=== PATIENT | male | born 2000 | race Caucasian/White ===

== ENCOUNTER 2024-06-17 17:34 | Inpatient (IN) ==
[2024-06-17] MEDS: LACTATED RINGER'S 1,000 ML IV ONE (18:07)
--- NOTE | 2024-06-17 18:09 | XRay Report ---
Technique: 2 frontal views of the chest were obtained Findings: There are no confluent pulmonary infiltrates. The heart size is within normal limits. No pleural effusion or pneumothorax is seen. There is no definite pulmonary nodule. No fracture is noted. No foreign body is seen Impression: No active disease Electronically signed by Carlos Eduardo Leo 06-17-2024 6:09 PM
[2024-06-17 18:13] LABS: Base Excess VBG 5.4 mEq/L; HCO3 VBG 30 mmol/L; Oxygen Saturation VBG < 60.0 %; PCO2 VBG 42 mmHg (38-50); PO2 VBG 30 mmHg; pH VBG 7.46 (7.36-7.41)
[2024-06-17 18:19] LABS: Basophils # (auto) 0.04 K/uL (0.00-0.20); Basophils % (auto) 0.4 %; Eosinophils % (auto) 1.8 %; Hematocrit (blood only) 42.5 % (42.0-52.0); Hemoglobin 15.2 g/dl (14.0-18.0); Immature Granulocytes # (auto) 0.03 K/uL (0.01-0.20); Immature Granulocytes % (auto) 0.3 %; Lymphocytes # (auto) 1.06 K/uL (1.20-3.40); Lymphocytes % (auto) 9.4 %; Mean Corpuscular Hemoglobin 29.9 pg (25.0-34.0); Mean Corpuscular Hgb Conc 35.8 g/dL (32.0-36.0); Mean Corpuscular Volume 83.7 fL (80.0-100.0); Mean Platelet Volume 9.4 fL (9.4-12.4); Monocytes # (auto) 0.78 K/uL (0.11-0.59); Monocytes % (auto) 6.9 %; Neutrophils # (auto) 9.19 K/uL (1.40-6.50); Neutrophils % (auto) 81.2 %; Platelet Count 301 K/uL (130-400); RDW Coefficient of Variation 13.2 % (11.5-14.5); RDW Standard Deviation 39.8 fL (36.4-46.3); Red Blood Count 5.08 M/uL (4.70-6.10)
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
[2024-06-17 18:27] LABS: Alanine Aminotransferase 25 U/L (7-52); Albumin Globulin Ratio 1.5 (0.9-2); Albumin Level 5.1 gm/dl (3.4-5.0); Alkaline Phosphatase 82 U/L (34-104); Anion Gap 11 (3-11); Aspartate Aminotransferase 34 U/L (13-39); BUN Creatinine Ratio 24.1 (10-20); Bilirubin,Total 1.1 mg/dl (0.2-1.0); Blood Urea Nitrogen 27 mg/dl (6-23); Calcium 10.4 mg/dl (8.6-10.3); Carbon Dioxide 27 mmol/L (21-32); Chloride 102 mmol/L (98-107); Globulin 3.3 gm/dl (2.5-4.0); Glucose 109 mg/dl (70-99(Fasting)); Lipase 3 U/L (11-82); Potassium 3.5 mmol/L (3.5-5.1); Sodium 140 mmol/L (136-145); Total Protein 8.4 gm/dl (6.0-8.3)
[2024-06-17 18:33] LABS: Troponin I High Sensitivity 2.8 pg/ml (0-20)
[2024-06-17 18:43] LABS: Thyroid Stimulating Hormone 2.798 uIu/ml (0.300-4.500)
[2024-06-17 18:45] LABS: Acetaminophen < 3 ug/ml (10-30); Salicylate < 3.0 mg/dl (3.0-30)
[2024-06-17 18:50] LABS: INR 1.1 (0.9-1.1); Prothrombin Time 11.6 Seconds (9.0-12.0)
[2024-06-17] MEDS: LACTATED RINGER'S 1,000 ML IV SCH (18:58)
[2024-06-18 00:31] LABS: Appearance Urine Clear (Clear); Bacteria Urine Automated None Seen (None Seen); Bilirubin Urine Negative (Negative); Blood Urine Negative (Negative); Cast Urine Automated 0-2 /lpf (0-2); Color Urine Dark Yellow; Epithelial Cell Urine Auto 0-2 /hpf (0-2); Glucose Urine UA Negative (Negative); Ketones Urine 1+ (Negative); Leukocyte Esterase Urine Negative (Negative); Nitrite Urine Negative (Negative); Protein Urine 1+ (Negative); RBC Urine Automated 0-2 /hpf (0-2); Specific Gravity Urine 1.022 (1.000-1.030); Urobilinogen Urine Negative (Negative); WBC Urine Automated 0-5 /hpf (0-5); pH Urine 5.5 (4.5-7.5)
[2024-06-18 00:49] LABS: Amphetamines+Metham, Urine Pos (Neg); Barbiturates, Urine Neg (Neg); Benzodiazepine, Urine Neg (Neg); Cocaine, Urine Pos (Neg); Fentanyl, Urine Neg (Neg); MDMA (Ecstacy), Urine Pos (Neg); Marijuana, Urine Neg (Neg); Methadone, Urine Neg (Neg); Opiate, Urine Neg (Neg); Phencyclidine, Urine Neg (Neg)
[2024-06-18] MEDS: POTASSIUM CHLORIDE PWD 20 MEQ PACK PO STA (01:04)
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
[2024-06-18] MEDS ORDERED: KETOROLAC TROMETHAMINE 15 MG/ML VIAL IV PRN (01:08)
[2024-06-18] MEDS ORDERED: PROMETHAZINE 6.25 MG/50.25 ML BAG IV PRN (01:08)
[2024-06-18] MEDS ORDERED: ACETAMINOPHEN 325 MG TAB PO PRN (01:08)
[2024-06-18] MEDS: NSS + 20MEQ KCL 20 MEQ/1,000 ML BAG IV ONE (01:12)
--- NOTE | 2024-06-18 01:26 | CT Scan Report ---
Exam(s): CT C SPINE EXAM: CT Cervical Spine Without Intravenous Contrast CLINICAL HISTORY: Reason for exam: ams/trauma. TECHNIQUE: Axial computed tomography images of the cervical spine without intravenous contrast. CTDI is 26.85 mGy and DLP is 547.31 mGy-cm. Automated exposure control was utilized for the study. A dose lowering technique was utilized adhering to the principles of ALARA. COMPARISON: No relevant prior studies available. FINDINGS: Vertebrae: Unremarkable. No acute fracture. Discs/spinal canal/neural foramina: No acute findings. No spinal canal stenosis. Soft tissues: Unremarkable. IMPRESSION: No evidence of acute cervical spine pathology. Electronically signed by: Yelena Vizcarra MD 06/18/24 01:26 AM
--- NOTE | 2024-06-18 01:33 | CT Scan Report ---
Exam(s): CT HEAD Without Contrast EXAM: CT Head Without Intravenous Contrast CLINICAL HISTORY: Reason for exam: ams/trauma. TECHNIQUE: Axial computed tomography images of the head/brain without intravenous contrast. CTDI is 64.94 mGy and DLP is 1098.96 mGy-cm. Automated exposure control was utilized for the study. A dose lowering technique was utilized adhering to the principles of ALARA. COMPARISON: No relevant prior studies available. FINDINGS: Brain: Unremarkable. No hemorrhage. No significant white matter disease. No edema. Ventricles: Unremarkable. No ventriculomegaly. Bones/joints: Unremarkable. No acute fracture. Soft tissues: Unremarkable. Sinuses: Unremarkable as visualized. No acute sinusitis. Mastoid air cells: Unremarkable as visualized. No mastoid effusion. IMPRESSION: No evidence of acute intracranial pathology. Electronically signed by: Yelena Vizcarra MD 06/18/24 01:32 AM
[2024-06-18] MEDS: POTASSIUM CHLORIDE / WTR 10 MEQ/100 ML PLCT IV SCH (02:25)
[2024-06-18 06:42] LABS: Basophils # (auto) 0.05 K/uL (0.00-0.20); Basophils % (auto) 0.5 %; Eosinophils # (auto) 0.17 K/uL (0.00-0.50); Eosinophils % (auto) 1.7 %; Hemoglobin 12.4 g/dl (14.0-18.0); Immature Granulocytes # (auto) 0.03 K/uL (0.01-0.20); Immature Granulocytes % (auto) 0.3 %; Lymphocytes # (auto) 1.61 K/uL (1.20-3.40); Lymphocytes % (auto) 15.6 %; Mean Corpuscular Hemoglobin 29.8 pg (25.0-34.0); Mean Corpuscular Hgb Conc 35.4 g/dL (32.0-36.0); Mean Corpuscular Volume 84.1 fL (80.0-100.0); Mean Platelet Volume 9.6 fL (9.4-12.4); Monocytes # (auto) 0.69 K/uL (0.11-0.59); Monocytes % (auto) 6.7 %; Neutrophils # (auto) 7.75 K/uL (1.40-6.50); Neutrophils % (auto) 75.2 %; Platelet Count 256 K/uL (130-400); RDW Coefficient of Variation 13.2 % (11.5-14.5); Red Blood Count 4.16 M/uL (4.70-6.10)
[2024-06-18 07:08] LABS: BUN Creatinine Ratio 21.2 (10-20); Calcium 9.1 mg/dl (8.6-10.3); Creatinine Clr Calc Pharmacy 107.6 ml/min; Potassium 4.4 mmol/L (3.5-5.1)
[2024-06-18] MEDS: ENOXAPARIN INJ 40 MG/0.4 ML SYR SQ SCH (08:31)
--- OUTSIDE RECORDS SUMMARY | 2024-06-18 10:33 | External Medical Summary | Summary of Care ---
Author Name Unknown Organization [facility] Address [address] [place] [address] Phone [phone] Care Team Providers Care Lead Inspector Name Role Phone Mulugeta Arnett MD Primary Care Provider Encounter Details Date Type Department Care Team ([facility] Contact Info) Description 06/09/2024 Population Health External Data Unspecified Department Allergies No known active allergiesdocumented as of this encounter (statuses as of 06/09/2024) Medications Medication Sig Dispensed Refills Start Date End Date Status Buprenorphine HCl 8 MG Sublingual Tablet Sublingual (Subutex) Place 2.5 Tablets under the tongue in the morning. 03/13/2024 Active Albuterol Sulfate HFA 108 (90 Base) MCG/ACT Inhalation Aerosol Solution Inhale 2 Puffs by mouth in the morning and 2 Puffs at noon and 2 Puffs in the evening and 2 Puffs before bedtime. 03/13/2024 Active Gabapentin 300 MG Oral Capsule (Neurontin) Take 1 Capsule by mouth in the morning and 1 Capsule at noon and 1 Capsule in the evening and 1 Capsule before bedtime. 03/20/2024 Active Haloperidol 5 MG Oral Tablet (Haldol) Take 1 Tablet by mouth in the morning and 1 Tablet before bedtime. 04/01/2024 Active hydrOXYzine Pamoate 50 MG Oral Capsule (Vistaril) Take 1 Capsule by mouth 3 times a day as needed. 04/01/2024 Active Meloxicam 7.5 MG Oral Tablet (Mobic) Take 1 Tablet by mouth in the morning. 04/01/2024 Active traZODone HCl 100 MG Oral Tablet (Desyrel) Take 1 Tablet by mouth at bedtime. 04/01/2024 Active Cyclobenzaprine HCl 10 MG Oral Tablet (Flexeril)Indication s:Right-sided low back pain without sciatica, unspecified chronicity Take 1 Tablet by mouth at bedtime as needed for Muscle spasms. 10 Tablet 04/03/2024 Active Naloxone HCl 4 MG/0.1ML Nasal Liquid (Narcan Nasal) Administer 1 spray into 1 nostril for suspected opioid overdose. Seek immediate medical attention. https://[email or web address]/[email or web address]?v=[email or web address] 1 Each 3 04/12/2024 Active Nicotine 21 MG/24HR Transdermal Patch 24 Hour (Nicoderm CQ) Place 1 Patch topically on the skin daily. 04/16/2024 Active documented as of this encounter (statuses as of 06/09/2024) Active Problems Problem Noted Date Diagnosed Date Transient alteration of awareness 06/06/2024 Food insecurity 04/21/2024 Overview: Per [facility] Protocol Uncomplicated asthma 04/03/2024 Tobacco use disorder 10/09/2023 History of depression 10/09/2023 Left against medical advice 07/14/2023 Bacteremia due to methicilli n susceptible Staphylococcus aureus (MSSA) 07/14/2023 Pulmonary nodules 07/12/2023 IV drug abuse 07/12/2023 Depression 09/03/2015 documented as of this encounter (statuses as of 06/09/2024) Resolved Problems Problem Noted Date Diagnosed Date Resolved Date Polysubstance abuse 06/06/2024 06/06/20 AMS (altered mental status) 06/05/2024 06/06/2024 Overdose of undetermined intent 06/05/2024 06/06/2024 Elevated troponin 06/05/2024 06/06/2024 History of posttraumatic str ess disorder (PTSD) 10/09/2023 06/06/2024 Opioid use disorder 10/09/2023 06/06/20 Aggressive behavior 10/07/2023 10/15/19 Psychosis 10/07/2023 10/15/2023 Methamphetamine use disorder, severe 07/12/2023 06/06/2024 Crack cocaine use 07/12/2023 06/06/2024 Cellulitis of right leg 07/12/2023 07/ Sepsis without acute organ dysfunction 07/12/2023 03/11/2024 Major depressive disorder, recurrent 01/20/2021 06/06/2024 Tobacco use disorder 09/03/2015 024 documented as of this encounter (statuses as of 06/09/2024) Immunizations Name Administration Dates Next Due DTaP Dipth/Tet/Acell Pertussis (Infanrix), Peds 03/28/2005,10/24/2000,03/22/2000,01/18,1999 HIB PRP-T, 4 Dose, PF, IM (H iberix, ActHib) 10/24/2000,03/22/2000,01/19/2000,10/18 HPV Vaccine, 4-Valent 01/03/2011 Hepatitis A Vaccine 11/14/2016 Hepatitis A, Ped/Adol., 18 y ear and below, 2-Dose 01/03/2011 Hepatitis B, 0-19 yrs 01/19/2000,1999,07/13 IPV - Polio Virus Vaccine (Inact) 2004,03/22/2000,01/19/2000,10/18 MMR - Measles/Mumps/Rubella Vaccine 03/28/2005,0 10/24/2000 Meningococcal Conjugate Vacc ine (Menactra/Menveo) 11/14/2016,09/03/2015,01/03/2011 PPD 06/04/2023 Pneumococcal Conjugate Vacci ne, 7 Valent 01/23/2001,10/24/2000 Seasonal Influenza Vac., MDV , IM, 0.5 mL (Fluzone) 06/10/2009 TDAP, Age 7 and older, IM (Adacel) 01/03/2011 Varicella Vaccine (Chicken Pox) 01/03/2011,01/23 documented as of this encounter Social History Tobacco Use Types Packs/Day Years Used Date Smoking Tobacco: Every Day Cigarettes 0.5 7 Smokeless Tobacco: Never Comments:patient educated on health risks of smoking, education pamphlets given on 7A. Alcohol Use Standard Drinks/Week Comments Yes 0 (1 standard drink = 0.6 oz pur e alcohol) drank last night PHQ-2 Answer Date Recorded PHQ Adult Total Score 5 10/15/2023 Hunger Vital Sign Answer Date Recorded Within the past 12 months, y ou worried that your food would run out before you got the money to buy more. Sometimes true Within the past 12 months, t he food you bought just didn't last and you didn't have money to get more. Sometimes true Childcare Answer Date Recorded Do you feel overwhelmed with taking care of a child, family member or friend? No 04/03/2024 Does your family need help f inding childcare? (Household - for ages 0-17 years) Not on file 04/03/2024 Clothing Answer Date Recorded Have you been unable to get clothing when it was really needed? No 04/03/2024 Is your family able to get c lothes or diapers when needed? (Household - for ages 0-17 years) Not on file 04/03/2024 Personal Safety Answer Date Recorded Do you feel unsafe or have concerns for your saf ety? No 04/03/2024 Do you have concerns for you r family's safety? (Household - for ages 0-17 years) Not on file 04/03/2024 Utilities Answer Date Recorded Do you have trouble paying y our heating, water, or electric bill? Yes 04/03/2024 Is your family able to pay t he heat, water, or electric bill? (Household - for ages 0-17 years) Not on file 04/03/2024 Does your family have access to good internet? (Household - for ages 0-17 years) Not on file 04/03/2024 Employment Status Answer Date Recorded Are you unemployed or without regular income? Ye s 04/03/2024 Does the household have a re gular source of income? (Household - for ages 0-17 years) Not on file 04/03/2024 Social Connections Answer Date Recorded How often do you feel lonely or isolated from th ose around you? Never 04/03/2024 Financial Resource Strain Answer Date R ecorded Do you have any trouble payi ng for your medications, or do you think you might in the future? No 04/03/2024 Does your family have troubl e paying for medicine? (Household - for ages 0-17 years) Not on file 04/03/2024 Transportation Needs Answer Date Record ed READ ONLY Do you have troubl e getting a ride to medical visits or work? Sometimes True 04/03/2024 Does your family have a hard time getting a ride to doctors visits? (Household - for ages 0-17 years) Not on file 04/03/2024 Has lack of transportation k ept you from medical appointments, meetings, work, or from getting things needed for daily living? Check all that apply. No 024 Do you (or your family) have trouble finding or paying for a ride (transportation)? (Household - for ages 0-17 years) Not on file 04/03/2024 Housing Stability Answer Date Recorded Do you currently live in a s helter or have no steady place to sleep at night? No 04/03/2024 READ ONLY Do you think you a re at risk of becoming homeless? No 04/03/2024 Does your family worry about paying for your home or becoming homeless? (Household - for ages 0-17 years) Not on file 0 04/03/2024 Are you homeless or worried that you might be in the future? No 04/03/2024 Are you (or your family) gabrielle eless or worried that you might be in the future? (Household - for ages 0-17 years) Not on file Food Insecurity Answer Date Recorded Do you need food for this week? Yes 04/03/2024 Are you able to get enough f ood for your family? (Household - for ages 0-17 years) Not on file 04/03/2024 Does your family need food t his week? (Household - for ages 0-17 years) Not on file 04/03/2024 Do you always have enough fo od for your family? (Household - for ages 0-17 years) Not on file 04/03/2024 Sex and Gender Information Value Date Recorded Sex Assigned at Male 12/04/2023 4:41 PM EDT Gender Identity Male 12/04/2023 4:41 PM EDT Sexual Orientation Straight 12/04/2023 4: 41 PM EDT Job Start Date Occupation Industry Not on file Not on file Not on file documented as of this encounter Functional Status Functional Status Response Date of Assess ment Are you deaf or do you have serious difficulty h earing? No 06/05/2024 Are you blind or do you have serious difficulty seeing, even when wearing glasses? No 06/05/2024 Do you have serious difficul ty walking or climbing stairs? (5 years old or older) No 06/05/2024 Do you have difficulty dress ing or bathing? (5 years old or older) No 06/05/2024 Because of a physical, menta l, or emotional condition, do you have difficulty doing errands alone such as visiting a doctor s office or shopping? (15 years old or older) No 06/05/20 Cognitive Status Response Date of Assessm ent Because of a physical, menta l, or emotional condition, do you have serious difficulty concentrating, remembering, or making decisions? (5 years old or older) No 06/05/2024 documented as of this encounter Plan of Treatment Upcoming Encounters Date Type Department Care Team (Late st Contact Info) Description 06/18/2024 10:00 AM EST Office Visit Cardiology, [place] [address] [place] [address] Rianna Batista MD [address] [place] [place] [address] 08/05/2024 2:40 PM EST Office Visit Family Practice, [place] [address] [phone] Stacy Hopson CRNP [address] [address] Health Maintenance Due Date Last Done Comments DISCUSS TOBACCO CESSATION (Michelle COTE TO SMARTSET #[id number]) 1999 Pneumococcal Vaccine: Pediat rics (0 to 5 Years) and At-Risk Patients (6 to 64 Years) (1 of 2 - PCV) 2005 HPV (Gardasil) Vaccine (2 - Male 2-dose series) 07/06/2011 01/03/2011 DTap/Tdap Vaccines (7 - Td o r Tdap) 01/03/2021 01/03/2011, 03/28/2005, 10/24/2000, Additional history exists *SPIROMETRY ONCE FOR ASTHMA-ADULT 04/06/2024 COVID-19 Vaccine (1 - 2023-2 5 season) 2024 Influenza Vaccine (FLU shot) (#1) 2024 009 Depression Monitoring 10/14/2024 10/15/2023 Hepatitis B Vaccine Completed 01/19/2000, 1999, 1999 MENINGOCOCCAL (MENACTRA/MENVEO) Completed 11/14/2016, 09/03/2015, 01/03/2011 documented as of this encounter Medical Devices Not on filedocumented as of this encounter Advance Directives * Full Code (Latest Code Status on File) Date Activated Date Inactivated Comments 06/05/2024 3:36 AM 06/06/2024 9:25 PM This order reflects the patients wishes and were consensually agreed upon. Question Answer Comments Discussion of Advance Direct conner occurred with: Not Discussed due to patient's condition Does the patient have a Living Will? No Does the patient have Health Care Power of Deburrer Machine? No * Full Code Date Activated Date Inactivated Comments 10/08/2023 4:41 PM 10/15/2023 1:38 PM This order re flects the patients wishes and were consensually agreed upon. Question Answer Comments Discussion of Advance Direct ocnner occurred with: Not Discussed due to patient's condition * Full Code Date Activated Date Inactivated Comments 10/07/2023 2:37 AM 10/08/2023 4:41 PM This order r eflects the patients wishes and were consensually agreed upon. Question Answer Comments Discussion of Advance Direct conner occurred with: Not Discussed due to patient's condition * Full Code Date Activated Date Inactivated Comments 07/12/2023 12:51 PM 07/14/2023 1:41 PM This order reflects the patients wishes and were consensually agreed upon. Question Answer Comments Discussion of Advance Directives occurred with: Patient * Full Code Date Activated Date Inactivated Comments 01/18/2021 2:46 PM 01/20/2021 5:35 PM This order re flects the patients wishes and were consensually agreed upon. Care Teams Lead Inspector Relationship Specialty Start Date End Date Mulugeta Arnett MD [address] [address] PCP - General Family Medicine 12/4/23 documented as of this encounter
--- OUTSIDE RECORDS SUMMARY | 2024-06-18 10:34 | External Medical Summary ---
Author Name Unknown Address Unknown Organization [id number]:[facility] - [address] [address] Laboratory Report Ordering Provider Test Date Status ONESIMO MÉNDEZ 06/05/2024 01:41:00 Final Observation Date Value Abnormality Reference (Units ) Status Troponin T 06/05/2024 01:41:00 100 Above high normal < =22 (ng/L) Final Performing Location [facility] - [address] [place] [address]
--- OUTSIDE RECORDS SUMMARY | 2024-06-18 10:34 | External Medical Summary | Summary of Care ---
Author Name Unknown Organization [facility] Address [address] [place] [address] Phone [phone] Care Team Providers Care Outside Repairer Special Name Role Phone Mulugeta Arnett MD Primary Care Provider Reason for Visit * Auth/Cert Specialty Diagnoses / Procedures Referred By Juany camargo Referred To Contact Diagnoses Precious Jung MD [address] [place] [address] Emergency Medicine [address] [address] Referral ID Status Reason Start Date Expiration Date Visits Re quested Visits Authorized [id number] Encounter Details Date Type Department Care Team (Latest Contact Info) Description 06/05/2024 8:06 AM EDT - 06/05/2024 11:59 PM EDT Hospital Encounter Cardiac Studies, [address] [phone] Discharge Disposition: Home - Self Care Allergies No known active allergiesdocumented as of this encounter (statuses as of 06/06/2024) Medications Medication Sig Dispensed Refills Start Date End Date Status Diclofenac Sodium 75 MG Oral Tablet Delayed Release (Voltaren)Indica tions:Chronic low back pain with sciatica, sciatica laterality unspecified, unspecified back pain laterality Take 1 Tablet by mouth in the morning and 1 Tablet before bedtime. With food.. 60 Tablet 03/11/2024 Discontinued(M edication List Clean Up) hydrOXYzine HCl 10 MG Oral Tablet (Atarax)Indicati ons:Anxiety Take 1 Tablet by mouth every 8 hours as needed for Anxiety. 30 Tablet 03/11/2024 Discontinued(M edication List Clean Up) Buprenorphine HCl 8 MG Sublingual Tablet Sublingual (Subutex) Place 2.5 Tablets under the tongue in the morning. 03/13/2024 Suspended Albuterol Sulfate HFA 108 (90 Base) MCG/ACT Inhalation Aerosol Solution Inhale 2 Puffs by mouth in the morning and 2 Puffs at noon and 2 Puffs in the evening and 2 Puffs before bedtime. 03/13/2024 Suspended Gabapentin 300 MG Oral Capsule (Neurontin) Take 1 Capsule by mouth in the morning and 1 Capsule at noon and 1 Capsule in the evening and 1 Capsule before bedtime. 03/20/2024 Suspended Haloperidol 5 MG Oral Tablet (Haldol) Take 1 Tablet by mouth in the morning and 1 Tablet before bedtime. 04/01/2024 Suspended hydrOXYzine Pamoate 50 MG Oral Capsule (Vistaril) Take 1 Capsule by mouth 3 times a day as needed. 04/01/2024 Suspended Meloxicam 7.5 MG Oral Tablet (Mobic) Take 1 Tablet by mouth in the morning. 04/01/2024 Suspended traZODone HCl 100 MG Oral Tablet (Desyrel) Take 1 Tablet by mouth at bedtime. 04/01/2024 Suspended Cyclobenzaprine HCl 10 MG Oral Tablet (Flexeril)Indica tions:Right-side d low back pain without sciatica, unspecified chronicity Take 1 Tablet by mouth at bedtime as needed for Muscle spasms. 10 Tablet 04/03/2024 Suspended Additional Information Naloxone HCl 4 MG/0.1ML Nasal Liquid (Narcan Nasal) Administer 1 spray into 1 nostril for suspected opioid overdose. Seek immediate medical attention. https://www.yout ube.com/watch?v= [email or web address] 1 Each 3 04/12/2024 Suspended Additional Information documented as of this encounter (statuses as of 06/06/2024) Active Problems Problem Noted Date Diagnosed Date AMS (altered mental status) 06/05/2024 Overdose of undetermined intent 06/05/2024 Elevated troponin 06/05/2024 Food insecurity 04/21/2024 Overview: Per [facility] Protocol Uncomplicated asthma 04/03/2024 History of posttraumatic stress disorder (PTSD) 10/09/2023 Opioid use disorder 10/09/2023 Tobacco use disorder 10/09/2023 History of depression 10/09/2023 Left against medical advice 07/14/2023 Bacteremia due to methicilli n susceptible Staphylococcus aureus (MSSA) 07/14/2023 Methamphetamine use disorder, severe 07/12/2023 Crack cocaine use 07/12/2023 Pulmonary nodules 07/12/2023 IV drug abuse 07/12/2023 Major depressive disorder, recurrent 01/20/2021 Depression 09/03/2015 documented as of this encounter (statuses as of 06/06/2024) Resolved Problems Problem Noted Date Diagnosed Date Resolved Date Aggressive behavior 10/07/2023 10/15/19 24 Psychosis 10/07/2023 10/15/2023 Cellulitis of right leg 07/12/2023 07/ Sepsis without acute organ dysfunction 07/12/2023 03/11/2024 Tobacco use disorder 09/03/2015 024 documented as of this encounter (statuses as of 06/06/2024) Immunizations Name Administration Dates Next Due DTaP [...] 06/18/2024 10:00 AM EST Office Visit Cardiology, [place] [address] [address] Rianna Batista MD [address] [address] 08/05/2024 2:40 PM EST Office Visit Family Practice, [place] [address] [phone] Stacy Hopson CRNP [address] [place] [address] Health Maintenance Due Date Last Done Comments DISCUSS TOBACCO CESSATION (Michelle COTE TO SMARTSET #[id number]) 1999 Pneumococcal Vaccine: Pediat rics (0 to [...] Not on filedocumented as of this encounter Procedures Procedure Name Priority Date/Time Associated Diagnosis Comments ECHO, COMPLETE (2D), TRANS-THORACIC Routine 06/05/2024 8:56 AM EDT Chest pain, unspecified type documented in this encounter Results * ECHO, COMPLETE (2D), TRANS-THORACIC (06/05/2024 8:56 AM EDT) LEFT VENTRICULAR EJECTION FRACTION 50 % [facility] 06/05/2024 8:12 AM EDT Precious Hoffman MD E[facility]ARDIOLOGY [facility] documented in this encounter Advance Directives * Full Code (Latest Code Status on File) Date Activated Date Inactivated Comments 06/05/2024 3:36 AM This order re flects the patients wishes and were consensually agreed upon. Question Answer Comments Discussion of Advance Direct conner occurred with: Not Discussed due to patient's condition Does the patient have a Living Will? No Does the patient have Health Care Power of Car Stereo Installer? No * Full Code Date Activated Date [...] and were consensually agreed upon. Care Teams Outside Repairer Special Relationship Specialty Start Date End Date Mulugeta Arnett MD [address] [address] PCP - General Family Medicine 07/16/23 documented as of this encounter
--- OUTSIDE RECORDS SUMMARY | 2024-06-18 10:34 | External Medical Summary ---
Author Name Unknown Address Unknown Organization K1F:[facility] - [address] [address] Laboratory Report Ordering Provider Test Date Status JESSICA ASCENCIO 06/05/2024 08:02:00 Final Observation Date Value Abnormality Reference (Units ) Status Lactic Acid 06/05/2024 08:02:00 1.2 0.4-2.0 (mmol/L) Final Performing Location [facility] - [address] [place] [address]
--- OUTSIDE RECORDS SUMMARY | 2024-06-18 10:34 | External Medical Summary ---
Author Name Unknown Address Unknown Organization K01[place] [place] [address] [facility] [address] Laboratory Report Ordering Provider Test Date Status ONESIMO MÉNDEZ 06/05/2024 02:41:48 Final Cutoff Concentration:
D rug \X09\ Level
Benzoylecgonine 100 ng/mL

This test was developed and its performance characteristics determined by [facility]. It has not been cleared or approved by the [place] Food and Drug Administration. Observation Date Value Abnormality Reference (Units ) Status METHODOLOGY 06/05/2024 02:41:48 LC-MS/MS Final Cocaine Metabolite, Urine (Benzolylecgonine) 06/05/2024 02:41:48 >3000 Above high normal Negative (ng/mL) Final Performing Location [facility] [place] [address] [facility] [address]
--- OUTSIDE RECORDS SUMMARY | 2024-06-18 10:34 | External Medical Summary ---
Author Name Unknown Address Unknown Organization K01:[facility] [place] - [facility] [address] [facility] [address] Laboratory Report Ordering Provider Test Date Status ONESIMO MÉNDEZ 06/05/2024 02:41:48 Final Cutoff Concentrations:
D rug Level
Alpha-Hydroxyalprazolam 10 ng/mL
7-Aminoclonazepam 20 ng/mL
Nordiazepam 20 ng/mL
Oxazepam 20 ng/mL
Temazepam 20 ng/mL
Lorazepam 10 ng/mL

This test was developed and its performance characteristics determined by [facility]. It has not been cleared or approved by the [place] Food and Drug Administration. Observation Date Value Abnormality Reference (Units ) Status METHODOLOGY 06/05/2024 02:41:48 LC-MS/MS Final Alpha hydroxyalprazolam cutoff [Mass/volume] in Urine for Confirmatory method 06/05/2024 02:41:48 Negative Negative Final 7-Aminoclonazepam [Mass/volume] in Urine by Confirmatory method 06/05/2024 02:41:48 Negative Negative Final Nordiazepam cutoff [Mass/volume] in Urine for Confirmatory method 06/05/2024 02:41:48 Negative Negative Final Oxazepam cutoff [Mass/volume] in Urine for Confirmatory method 06/05/2024 02:41:48 Negative Negative Final Temazepam cutoff [Mass/volume] in Urine for Confirmatory method 06/05/2024 02:41:48 Negative Negative Final LORazepam cutoff [Mass/volume] in Urine for Confirmatory method 06/05/2024 02:41:48 Negative Negative Final Performing Location [facility] [place] - [facility] [address]
--- OUTSIDE RECORDS SUMMARY | 2024-06-18 10:34 | External Medical Summary | Summary of Care ---
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 the following: - Potential for Dangerous arrhythmia requiring telemetry monitoring beyond observation care (eg, overdose with known arrhythmogenic agent, such as tricyclic antidepressant or drug-induced QTc prolongation) Additional Information: found unresponsive in a backyard and police was called and they found him up and walking but slurring and told them he took several shots of Subutex and also told nurse he took multiple Seroquel -Troponin x 3 -Lactic acid every 3 hours until normalized -Cardio consult -Echocardiogram AdmissionCare documentation entered by: Michelle Navarro [facility], 28th edition, Copyright 2023 [facility] [employer] All Rights Reserved. [id number] Solely for purpose of utilization review and payment; not a diagnostic tool * ED Ambulette Driver Note - Lasha Herring RN - 06/05/2024 1:04 AM EDT Late entry for 0045 - Pt calling out. Threatening to leave facility. Continues to be under the influence of alcohol/prescription drugs. All attempts at redirection by ED staff failing. Security present at the bedside. Provider to be ordering medication to help with restlessness/behaviors. * ED Ambulette Driver Note - Mulugeta Kruse RN - 06/04/2024 11:49 PM EDT Poison control called. Monitor for [employer]IAN depression, agitation, anticholinergic effects, for prolonged QRS give bicarb, for agitation give benzodiazepines. 12 hour obs. documented in this encounter Plan of Treatment Upcoming Encounters Date Type Department Care Team (Late st Contact Info) Description 06/18/2024 10:00 AM EST Office Visit Cardiology, [place] [address] [place] [address] [facility]ista [facility] [address] [facility] [place] [address] 08/05/2024 2:40 PM EST Office Visit Family Practice, [place] [address] [phone] Stacy Hopson CRNP [address] [place] [phone] Pending Results Name Type Priority Associated Diagnoses Date /Time BENZODIAZEPINES, URINE CONFIRMATION Lab STAT 06/05/2024 2:41 AM EDT COCAINE METABOLITE, URINE CONFIRMATION Lab STAT 06/05/2024 2:41 AM EDT Scheduled Orders Name Type Priority Associated Diagnoses Orde r Schedule BENZODIAZEPINES, URINE CONFIRMATION Lab STAT One Time for 1 Occurrences starting 06/05/2024 until 06/05/2024 COCAINE METABOLITE, URINE CONFIRMATION Lab STAT One Time for 1 Occurrences starting 06/05/2024 until 06/05/2024 Health Maintenance Due Date Last Done Comments DISCUSS TOBACCO CESSATION (R EFER TO SMARTSET #[id number]) 1999 Pneumococcal Vaccine: Pediat rics (0 to [...] Procedure Name Priority Date/Time Associated Diagnosis Comments HC ECG TRACING ONLY STAT 06/06/2024 1 2:17 AM EDT Chest pain GLUCOSE METER, POINT OF CARE BLADIMIR 06/06/2024 12:13 AM EDT GLUCOSE METER, POINT OF CARE BLADIMIR 06/05/2024 8:47 PM EDT HC ECG TRACING ONLY STAT 06/05/2024 4 :41 PM EDT Chest pain ECHO, COMPLETE (2D), TRANS-THORACIC Routine 06/05/2024 8:56 AM EDT Chest pain, unspecified type HC ECG TRACING ONLY Routine 06/05/2024 8 :09 AM EDT Heart palpitations LACTATE Routine 06/05/2024 8:02 AM EDT TROPONIN T, HIGH SENSITIVITY Routine 06/05/2024 4:41 AM EDT BASIC METABOLIC PANEL Routine 06/05/2024 4:41 AM EDT LACTATE Routine 06/05/2024 4:41 AM EDT CBC Routine 06/05/2024 4:41 AM EDT MAGNESIUM Routine 06/05/2024 4:41 AM EDT TOXICOLOGY, URINESCREEN W/ CONFIRMATION STAT 06/05/2024 2:41 AM EDT URINALYSIS, REFLEX TO MICROSCOPIC STAT 06/05/2024 2:41 AM EDT HC ECG TRACING ONLY STAT 06/05/2024 1 :59 AM EDT Tachycardia TROPONIN T, HIGH SENSITIVITY STAT 06/05/2024 1:41 AM EDT EXTRA GOLD TOP Routine 06/05/2024 1:00 AM EDT EXTRA TUBES Routine 06/05/2024 1:00 AM EDT DIFFERENTIAL, AUTOMATED STAT 06/05/2024 12:32 AM EDT TROPONIN T, HIGH SENSITIVITY STAT 06/05/2024 12:32 AM EDT COMPREHENSIVE METABOLIC PANEL STAT 06/05/2024 12:32 AM EDT TYPE AND SCREEN STAT 06/05/2024 12:32 AM EDT CK Routine 06/05/2024 12:32 AM EDT CBC STAT 06/05/2024 12:32 AM EDT PT INR STAT 06/05/2024 12:32 AM EDT LACTATE,WHOLE BLOOD STAT 06/05/2024 1 2:32 AM EDT ETHANOL, MEDICAL STAT 06/05/2024 12:3 2 AM EDT CBC STAT 06/05/2024 12:32 AM EDT ACETAMINOPHEN LEVEL STAT 06/05/2024 1 2:32 AM EDT SALICYLATES LEVEL STAT 06/05/2024 12: 32 AM EDT XR CHEST 1 VIEW STAT 06/05/2024 12:23 AM EDT XR PELVIS AP VIEW STAT 06/05/2024 12: [address] ABD/PELVIS W IV CONTRAST - WO ORAL CONTRAST STAT 06/05/2024 12:22 AM EDT Fatty (change of) liver, not elsewhere classified Constipation, unspecified Other general symptoms and signs Umbilical hernia without obstruction or gangrene CT C SPINE WO CONTRAST STAT 06/05/2024 12:[address] CHEST W CONTRAST STAT 06/05/2024 1 2:22 AM EDT Fatty (change of) liver, not elsewhere classified Constipation, unspecified Other general symptoms and signs Umbilical hernia without obstruction or gangrene CT HEAD/BRAIN WO CONTRAST STAT 06/05/2024 12:22 AM EDT GLUCOSE METER, POINT OF CARE BLADIMIR 06/04/2024 11:42 PM EDT HC ECG TRACING ONLY STAT 06/04/2024 1 1:39 PM EDT Tachycardia documented in this encounter Results * EKG (06/06/2024 12:17 AM EDT) 06/06/2024 12:1 7 AM EDT Narrative Procedure Note Yariel Brown DO - 06/06/2024 12:17 AM EDT REASON FOR STUDY: Notify provider if obtaining EKG;Chest pain CONCLUSIONS: Normal sinus rhythm Incomplete right bundle branch block Borderline ECG When compared with ECG of 05-Jun-2024 08:09, No significant change was found Ventricular Rate: 72 Atrial Rate: 72 AR Interval: 150 QRS Duration: 108 QT/QTc: 370/405 ms P-R-T [place]: 46 : 67 : 60 degrees Precious Hoffman MD EKG Performing Organization Address [facility] Co de Phone Number [facility] * GLUCOSE METER, POINT OF CARE (06/06/2024 12:13 AM EDT) GLUCOSE - POCT 93 70 - 120 mg/dL 06/06/2024 1:26 AM EDT [facility] Blood Whole blood specimen / Unknown 06/06/2024 12:13 AM EDT 06/06/2024 1:26 AM EDT Yogesh Porter MD LAB POINT OF CARE TE ST DOCKED DEVICE UNSOLICITED RESULTS Performing Organization Address [facility] Co de Phone Number [facility] [address] [place] [address] * GLUCOSE METER, POINT OF CARE (06/05/2024 8:47 PM EDT) GLUCOSE - POCT 99 70 - 120 mg/dL 06/05/2024 8:48 PM EDT [facility] Blood Whole blood specimen / Unknown 06/05/2024 8:47 PM EDT 06/05/2024 8:48 PM EDT Yogesh Porter MD LAB POINT OF CARE TE ST DOCKED DEVICE UNSOLICITED RESULTS Performing Organization Address [facility] Co de Phone Number [facility] [address] [place] [address] * EKG (06/05/2024 4:41 PM EDT) 06/05/2024 4:41 PM EDT Narrative Procedure Note Yariel Brown DO - 06/05/2024 4:41 PM EDT REASON FOR STUDY: Notify provider if obtaining EKG;Chest pain CONCLUSIONS: Normal sinus rhythm Incomplete right bundle branch block Early repolarization Borderline ECG No previous ECGs available Ventricular Rate: 87 Atrial Rate: 87 AR Interval: 150 QRS Duration: 110 QT/QTc: 338/406 ms P-R-T [place]: 47 : 65 : 59 degrees Precious Hoffman MD EKG Performing Organization Address [facility] Phone Number [facility] * ECHO, COMPLETE (2D), TRANS-THORACIC (06/05/2024 8:56 AM EDT) LEFT VENTRICULAR EJECTION FRACTION 50 % [facility] 06/05/2024 8:12 AM EDT Precious Hoffman MD ECHOCARDIOLOGY Performing Organization Address [facility] Number [facility] * EKG (06/05/2024 8:09 AM EDT) 06/05/2024 8:09 AM EDT Narrative Procedure Note Yariel Brown DO - 06/05/2024 8:09 AM EDT REASON FOR STUDY: Heart palpitations CONCLUSIONS: Normal sinus rhythm Early repolarization Borderline ECG When compared with ECG of 05-Jun-2024 01:59, Vent. rate has decreased by 72 bpm Incomplete right bundle branch block is no longer Present Ventricular Rate: 87 Atrial Rate: 87 AR Interval: 154 QRS Duration: 100 QT/QTc: 340/409 ms P-R-T [place]: 56 : 68 : 62 degrees Precious Hoffman MD EKG Performing Organization Address [facility] Number [facility] * LACTATE (06/05/2024 8:02 AM EDT) Lactate 1.2 0.4 - 2.0 mmol/L 06/05/2024 8:25 AM EDT LABORATORY [facility] Blood Venous blood specimen / Unknown Venipuncture / Unknown 06/05/2024 8:02 AM EDT 06/05/2024 8:05 AM EDT Precious Hoffman MD LAB BLOOD ORDERABL ES Performing Organization Address [facility] de Phone Number LABORATORY [address] [address] * (ABNORMAL) LACTATE (06/05/2024 4:41 AM EDT) Lactate 2.1(H) 0.4 - 2.0 mmol/L 06/05/2024 5:12 AM EDT LABORATORY [facility] Blood Venous blood specimen / Unknown Venipuncture / Unknown 06/05/2024 4:41 AM EDT 06/05/2024 4:54 AM EDT Precious Hoffman MD LAB BLOOD ORDERABL ES Performing Organization Address [facility] de Phone Number LABORATORY [address] [address] * (ABNORMAL) TROPONIN T, HIGH SENSITIVITY (06/05/2024 4:41 AM EDT) Troponin T, High Sensitivity 52(H) <=22 ng/L 06/05/2024 5:13 AM EDT LABORATORY [facility] Blood Venous blood specimen / Unknown Venipuncture / Unknown 06/05/2024 4:41 AM EDT 06/05/2024 4:54 AM EDT Precious Hoffman MD LAB BLOOD ORDERABL ES Performing Organization Address City/[facility] de Phone Number LABORATORY [address] [phone] * MAGNESIUM (06/05/2024 4:41 AM EDT) Magnesium 1.8 1.5 - 2.6 mg/dL 06/05/2024 5:16 AM EDT LABORATORY [facility] Blood Venous blood specimen / Unknown Venipuncture / Unknown 06/05/2024 4:41 AM EDT 06/05/2024 4:54 AM EDT Precious Hoffman MD LAB BLOOD ORDERABL ES Performing Organization Address City/[facility]/ZIP Co de Phone Number LABORATORY GL [address] [place] [address] * (ABNORMAL) CBC (06/05/2024 4:41 AM EDT) WBC 12.10(H) 4.00 - 10.80 K/uL 06/05/2024 4:57 AM EDT LABORATORY [facility] RBC 4.46 4.50 - 5.25 M/uL 06/05/2024 4:57 AM EDT LABORATORY [facility] HGB 13.4(L) 14.0 - 16.8 g/dL 06/05/2024 4:57 AM EDT LABORATORY [facility] HCT 39.6(L) 40.0 - 48.4 % 06/05/2024 4:57 AM EDT LABORATORY [facility] MCV 88.8 82.0 - 99.5 fL 06/05/2024 4:57 AM EDT LABORATORY [facility] MCH 30.0 27.0 - 34.0 pg 06/05/2024 4:57 AM EDT LABORATORY [facility] MCHC 33.8 32.0 - 36.0 g/dL 06/05/2024 4:57 AM EDT LABORATORY [facility] RDW 13.3 11.5 - 15.5 % 06/05/2024 4:57 AM EDT LABORATORY [facility] PLT 214 140 - 400 K/uL 06/05/2024 4:57 AM EDT LABORATORY [facility] MPV 9.3 6.6 - 11.1 fL 06/05/2024 4:57 AM EDT LABORATORY [facility] nRBCs 0 <=0 /100 WBCs 06/05/2024 4:57 AM EDT LABORATORY [facility] Blood Venous blood specimen / Unknown Venipuncture / Unknown 06/05/2024 4:41 AM EDT 06/05/2024 4:54 AM EDT Precious Hoffman MD LAB BLOOD ORDERABL ES LABORATORY [address] [address] * (ABNORMAL) BASIC METABOLIC PANEL (06/05/2024 4:41 AM EDT) BUN 13 6 - 20 mg/dL 06/05/2024 5:16 AM EDT LABORATORY [facility] CREATININE 0.8 0.6 - 1.2 mg/dL 06/05/2024 5:16 AM EDT LABORATORY GL EGFR >90 >=60 mL/min 06/05/2024 5:16 AM EDT LABORATORY GL Comment:eGFR is calculated b ased on the CKD-EPI 2020 equation. SODIUM 139 135 - 146 mmol/L 06/05/2024 5:16 AM EDT LABORATORY GL POTASSIUM 4.2 3.5 - 5.1 mmol/L 06/05/2024 5:16 AM EDT LABORATORY GL CHLORIDE 107 98 - 107 mmol/L 06/05/2024 5:16 AM EDT LABORATORY GL CO2 21(L) 22 - 32 mmol/L 06/05/2024 5:16 AM EDT LABORATORY GL ANION GAP 11 7 - 15 mmol/L 06/05/2024 5:16 AM EDT LABORATORY GL GLUCOSE 110 70 - 120 mg/dL 06/05/2024 5:16 AM EDT LABORATORY GL CALCIUM 9.0 8.4 - 10.2 mg/dL 06/05/2024 5:16 AM EDT LABORATORY [facility] Blood Venous blood specimen / Unknown Venipuncture / Unknown 06/05/2024 4:41 AM EDT 06/05/2024 4:54 AM EDT Precious Hoffman MD LAB BLOOD ORDERABL ES LABORATORY [facility] [address] [place] [address] * URINALYSIS, REFLEX TO MICROSCOPIC (06/05/2024 2:41 AM EDT) Color, Urine Yellow Light Yellow, Yellow, Dark Yellow 06/05/2024 2:55 AM EDT LABORATORY GL Clarity, Urine Clear Clear 06/05/2024 2:55 AM EDT LABORATORY GL Glucose, Urine Negative Negative mg/dL 06/05/2024 2:55 AM EDT LABORATORY [facility] Bilirubin, Urine Negative Negative 06/05/2024 2:55 AM EDT LABORATORY [facility] Ketone, Urine Negative Negative mg/dL 06/05/2024 2:55 AM EDT LABORATORY [facility] Specific [place], Urine 1.026 1.003 - 1.030 06/05/2024 2:55 AM EDT LABORATORY [facility] Blood, Urine Negative Negative 06/05/2024 2:55 AM EDT LABORATORY [facility] pH, Urine 7.0 5.0 - 7.5 Units 06/05/2024 2:55 AM EDT LABORATORY [facility] Protein, Urine Negative Negative mg/dL 06/05/2024 2:55 AM EDT LABORATORY [facility] Urobilinogen, Urine 0.2 0.2, 1.0 mg/dL 06/05/2024 2:55 AM EDT LABORATORY [facility] Nitrite, Urine Negative Negative 06/05/2024 2:55 AM EDT LABORATORY [facility] Esterase, Urine Negative Negative 2:55 AM EDT LABORATORY [facility] Comment, Urine 06/05/2024 2:55 AM EDT LABORATORY [facility] Comment:Screen negative - Mi croscopic not performed. Urine Non-blood Collection / Unknown 06/05/2024 2:41 AM EDT 06/05/2024 2:46 AM EDT Victor Manuel Mcgregor DO LAB URINE AMISH ALLEN LABORATORY [address] [address] * (ABNORMAL) TOXICOLOGY, URINESCREEN W/ CONFIRMATION (06/05/2024 2:41 AM EDT) [facility] Amphetamines Screen, U Negative Negative 06/05/2024 3:12 AM EDT LABORATORY GL Benzodiazepines Screen, U Positive(A) Negative 06/05/2024 3:12 AM EDT LABORATORY [facility] Cannabinoids Screen, U Negative Negative 06/05/2024 3:12 AM EDT LABORATORY GL Cocaine Metabolite Screen, U Positive(A) Negative 06/05/2024 3:12 AM EDT LABORATORY GL Fentanyl Screen, U Negative Negative 2023 3:12 AM EDT LABORATORY GL Hydrocodone Screen, U Negative Negative 06/05/2024 3:12 AM EDT LABORATORY GL Methadone Metabolite Screen, U Negative Negative 06/05/2024 3:12 AM EDT LABORATORY [facility] Morphine/Codeine Screen, U Negative Negative 06/05/2024 3:12 AM EDT LABORATORY [facility] Oxycodone Screen, U Negative Negative 06/05/2024 3:12 AM EDT LABORATORY GL Urine Non-blood Collection / Unknown 06/05/2024 2:41 AM EDT 06/05/2024 2:46 AM EDT Narrative LABORATORY GL - 06/05/2024 3:12 AM EDT Cutoff Concentrations: Drug Level Amphetamines 500 ng/mL Benzodiazepines 100 ng/mL Cannabinoids 50 ng/mL Cocaine Metabolite 150 ng/mL Fentanyl 1 ng/mL Hydrocodone / Hydromorphone 300 ng/mL Methadone Metabolite 100 ng/mL Morphine / Codeine 300 ng/mL Oxycodone / Oxymorphone 100 ng/mL Screening results are presumptive and can only be used for medical purposes. Positive screening results are reflexed to confirmatory testing. Victor Manuel Mcgregor DO LAB URINE KIESHAE ALEJANDRO Performing Organization Address City/[facility] Co de Phone Number LABORATORY [place] [phone] * EKG (06/05/2024 1:59 AM EDT) 06/05/2024 1:59 AM EDT Narrative Procedure Note Yariel Brown DO - 06/05/2024 1:59 AM EDT REASON FOR STUDY: TACHYCARDIA CONCLUSIONS: Sinus tachycardia Incomplete right bundle branch block Borderline ECG When compared with ECG of 04-Jun-2024 23:39, No significant change was found Ventricular Rate: 159 Atrial Rate: 159 AR Interval: 122 QRS Duration: 98 QT/QTc: 264/429 ms P-R-T [place]: 45 : 80 : 50 degrees Victor Manuel Mcgregor DO EKG [facility] * (ABNORMAL) TROPONIN T, HIGH SENSITIVITY (06/05/2024 1:41 AM EDT) [facility] Troponin T, High Sensitivity 100(H) <=22 ng/L 06/05/2024 2:03 AM EDT LABORATORY [facility] Blood Venous blood specimen / Unknown Venipuncture / Unknown 06/05/2024 1:41 AM EDT 06/05/2024 1:44 AM EDT Victor Manuel Mcgregor LAB BLOOD ORDE ALEJANDRO LABORATORY [facility] [address] [place] [address] * EXTRA GOLD TOP (06/05/2024 1:00 AM EDT) Blood Venous blood specimen / Unknown 06/05/2024 1:00 AM EDT 06/05/2024 1:05 AM EDT Victor Manuel Mcgregor LAB BLOOD ORDE ALEJANDRO LABORATORY [address] [address] * (ABNORMAL) DIFFERENTIAL, AUTOMATED (06/05/2024 12:32 AM EDT) [facility] WBC 8.42 4.00 - 10.80 K/uL 06/05/2024 12:41 AM EDT LABORATORY [facility] Neutrophils % 77.9(H) 40.0 - 75.0 % 06/05/2024 12:41 AM EDT LABORATORY [facility] Lymphocytes % 14.0(L) 18.0 - 42.0 % 06/05/2024 12:41 AM EDT LABORATORY [facility] Monocytes % 4.6 1.0 - 11.0 % 06/05/2024 12:41 AM EDT LABORATORY GL Eosinophils % 2.3 0.0 - 6.0 % 06/05/2024 12:41 AM EDT LABORATORY [facility] Basophils % 0.5 0.0 - 2.0 % 06/05/2024 12:41 AM EDT LABORATORY [facility] Immature Granulocytes % 0.7 0.0 - 2.0 % 06/05/2024 12:41 AM EDT LABORATORY GL[facility] Absolute Neutrophils 6.56 1.80 - 7.70 K/uL 06/05/2024 12:41 AM EDT LABORATORY [facility] Absolute Lymphocytes 1.18 1.00 - 4.80 K/ul 06/05/2024 12:41 AM EDT LABORATORY [facility] Absolute Monocytes 0.39 0.00 - 1.10 K/uL 06/05/2024 12:41 AM EDT LABORATORY [facility] Absolute Eosinophils 0.19 0.00 - 0.70 K/uL 06/05/2024 12:41 AM EDT LABORATORY [facility] Absolute Basophils 0.04 0.00 - 0.20 K/uL 06/05/2024 12:41 AM EDT LABORATORY [facility] Absolute Immature Granulocytes 0.06 0.00 - 0.20 K/uL 06/05/2024 12:41 AM EDT LABORATORY [facility] Blood Venous blood specimen / Unknown Venipuncture / Unknown 06/05/2024 12:32 AM EDT 06/05/2024 12:36 AM EDT Victor Manuel Mcgregor DO LAB BLOOD ORDE [facility] Organization Address City/State/ZIP Co de Phone Number LABORATORY [address] [address] * (ABNORMAL) CBC (06/05/2024 12:32 AM EDT) WBC 8.42 4.00 - 10.80 K/uL 06/05/2024 12:41 AM EDT LABORATORY GL[facility] RBC 4.46 4.50 - 5.25 M/uL 06/05/2024 12:41 AM EDT LABORATORY [facility] HGB 13.6(L) 14.0 - 16.8 g/dL 06/05/2024 12:41 AM EDT LABORATORY [facility] HCT 39.2(L) 40.0 - 48.4 % 06/05/2024 12:41 AM EDT LABORATORY [facility] MCV 87.9 82.0 - 99.5 fL 06/05/2024 12:41 AM EDT LABORATORY [facility] MCH 30.5 27.0 - 34.0 pg 06/05/2024 12:41 AM EDT LABORATORY [facility] MCHC 34.7 32.0 - 36.0 g/dL 06/05/2024 12:41 AM EDT LABORATORY [facility] RDW 13.2 11.5 - 15.5 % 06/05/2024 12:41 AM EDT LABORATORY [facility] PLT 199 140 - 400 K/uL 06/05/2024 12:41 AM EDT LABORATORY [facility] MPV 9.2 6.6 - 11.1 fL 06/05/2024 12:41 AM EDT LABORATORY [facility] nRBCs 0 <=0 /100 WBCs 06/05/2024 12:41 AM EDT LABORATORY [facility] Blood Venous blood specimen / Unknown Venipuncture / Unknown 06/05/2024 12:32 AM EDT 06/05/2024 12:36 AM EDT Victor Manuel Mcgregor LAB BLOOD KIESHAPamella ALEJANDRO Performing Organization Address City/[facility]/ZIP Co de Phone Number LABORATORY [address] [address] * CK (06/05/2024 12:32 AM EDT) CK 124 39 - 308 U/L 06/05/2024 12:58 AM EDT LABORATORY [facility] Blood Venous blood specimen / Unknown Venipuncture / Unknown 06/05/2024 12:32 AM EDT 06/05/2024 12:36 AM EDT Victor Manuel [facility]LOOD ORDE XANDERBHANU LABORATORY [address] [address] * (ABNORMAL) TROPONIN T, HIGH SENSITIVITY (06/05/2024 12:32 AM EDT) Troponin T, High Sensitivity 51(H) <=22 ng/L 06/05/2024 12:58 AM EDT LABORATORY [facility] Blood Venous blood specimen / Unknown Venipuncture / Unknown 06/05/2024 12:32 AM EDT 06/05/2024 12:36 AM EDT Victor Manuel Mcgregor LAB BLOOD ORDPamella ALLEN Performing Organization Address [facility] de Phone Number LABORATORY [address] [address] * (ABNORMAL) SALICYLATES LEVEL (06/05/2024 12:32 AM EDT) Salicylates Level <1.0(L) 5.0 - 30.0 mg/dL 06/05/2024 12:58 AM EDT LABORATORY [facility] Blood Venous blood specimen / Unknown Venipuncture / Unknown 06/05/2024 12:32 AM EDT 06/05/2024 12:36 AM EDT Victor Manuel Mcgregor LAB BLOOD ORDPamella ALLEN Performing Organization Address [facility] de Phone Number LABORATORY [address] [address] * (ABNORMAL) ACETAMINOPHEN LEVEL (06/05/2024 12:32 AM EDT) Acetaminophen Level <5.0(L) 10.0 - 30.0 ug/mL 06/05/2024 12:58 AM EDT LABORATORY [facility] Blood Venous blood specimen / Unknown Venipuncture / Unknown 06/05/2024 12:32 AM EDT 06/05/2024 12:36 AM EDT Victor Manuel Mcgregor LAB BLOOD ORDPamella ALLEN Performing Organization Address [facility] de Phone Number LABORATORY [address] [phone] * TYPE AND SCREEN (06/05/2024 12:32 AM EDT) ABO O 06/05/2024 1:24 AM EDT LABORATORY [facility] BLOOD BANK Rh Positive 06/05/2024 1:24 AM EDT LABORATORY [facility] BLOOD BANK Red Blood Cell Antibody Screen Negative 06/05/2024 1:24 AM EDT LABORATORY [facility] BLOOD BANK Specimen Expiration Date 06/08/2024 23:59 06/05/2024 1:24 AM EDT LABORATORY [facility] BLOOD BANK Blood Venous blood specimen / Unknown Venipuncture / Unknown 06/05/2024 12:32 AM EDT 06/05/2024 12:36 AM EDT [facility] TEST ORDERABLES Performing Organization Address [facility] de Phone Number LABORATORY [facility] BLOOD BANK [address] [place] [id number] * PT INR (06/05/2024 12:32 AM EDT) Prothrombin Time 13.9 11.6 - 15.2 seconds 06/05/2024 12:54 AM EDT LABORATORY [facility] INR 1.1 0.8 - 1.2 06/05/2024 12:54 AM EDT LABORATORY [facility] Blood Venous blood specimen / Unknown Venipuncture / Unknown 06/05/2024 12:32 AM EDT 06/05/2024 12:36 AM EDT Narrative LABORATORY [facility] - 06/05/2024 12:54 AM EDT Warfarin Therapy INR: 2.0-3.0 conventional anticoagulation INR: 2.5-3.5 high intensity anticoagulation [facility] B[facility] Performing Organization Address [facility] de Phone Number LABORATORY [address] [address] * (ABNORMAL) LACTATE,WHOLE BLOOD (06/05/2024 12:32 AM EDT) Lactate, Whole Blood 2.9(H) 0.4 - 2.0 mmol/L 06/05/2024 12:46 AM EDT LABORATORY [facility] Blood Venous blood specimen / Unknown Venipuncture / Unknown 06/05/2024 12:32 AM EDT 06/05/2024 12:36 AM EDT Victor Manuel Mcgregor DO LAB BLOOD ORDPamella ALLEN Performing Organization Address City/[facility]/ZIP Co de Phone Number LABORATORY [address], [place] [id number] * (ABNORMAL) ETHANOL, MEDICAL (06/05/2024 12:32 AM EDT) Ethanol, Medical 77(H) Negative mg/dL 06/05/2024 12:58 AM EDT LABORATORY GL Blood Venous blood specimen / Unknown Venipuncture / Unknown 06/05/2024 12:32 AM EDT 06/05/2024 12:36 AM EDT Victor Manuel Mcgregor LAB BLOOD AMISH ALLEN Performing Organization Address [facility] Co de Phone Number LABORATORY GL [address], [place] [id number] * COMPREHENSIVE METABOLIC PANEL (06/05/2024 12:32 AM EDT) BUN 17 6 - 20 mg/dL 06/05/2024 12:58 AM EDT LABORATORY GL CREATININE 1.0 0.6 - 1.2 mg/dL 06/05/2024 12:58 AM EDT LABORATORY GL EGFR >90 >=60 mL/min 06/05/2024 12:58 AM EDT LABORATORY GLH Comment:eGFR is calculated b ased on the CKD-EPI 2020 equation. SODIUM 136 135 - 146 mmol/L 06/05/2024 12:58 AM EDT LABORATORY GLH POTASSIUM 3.5 3.5 - 5.1 mmol/L 06/05/2024 12:58 AM EDT LABORATORY GLH CHLORIDE 101 98 - 107 mmol/L 06/05/2024 12:58 AM EDT LABORATORY GLH CO2 23 22 - 32 mmol/L 06/05/2024 12:58 AM EDT LABORATORY GLH ANION GAP 12 7 - 15 mmol/L 06/05/2024 12:58 AM EDT LABORATORY GLH GLUCOSE 116 70 - 120 mg/dL 06/05/2024 12:58 AM EDT LABORATORY GLH Albumin 4.0 3.8 - 5.0 g/dL 06/05/2024 12:58 AM EDT LABORATORY GLH AST 17 10 - 50 U/L 06/05/2024 12:58 AM EDT LABORATORY GLH Alkaline Phosphatase 78 35 - 130 U/L 06/05/2024 12:58 AM EDT LABORATORY GLH Bilirubin, Total <0.2 <=1.2 mg/dL 06/05/2024 12:58 AM EDT LABORATORY GLH CALCIUM 8.8 8.4 - 10.2 mg/dL 06/05/2024 12:58 AM EDT LABORATORY GLH Protein 6.4 6.0 - 8.3 g/dL 06/05/2024 12:58 AM EDT LABORATORY GLH ALT 13 10 - 50 U/L 06/05/2024 12:58 AM EDT LABORATORY GLH Blood Venous blood specimen / Unknown Venipuncture / Unknown 06/05/2024 12:32 AM EDT 06/05/2024 12:36 AM EDT Victor Manuel Mcgregor DO LAB BLOOD ORDPamella ALLEN [facility] Organization Address City/State/[facility] Co de Phone Number LABORATORY GLH [address] [place] [address] * XR PELVIS 1 VIEW (06/05/2024 12:23 AM EDT) Anatomical Region Laterality Modality Pelvis, Lower Extremity Digital Radiography 06/05/2024 12:0 9 AM EDT Impressions 06/05/2024 12:44 AM EDT IMPRESSION: No evidence of acute pelvic fracture. THIS DOCUMENT HAS BEEN ELECTRONICALLY SIGNED BY MEERA MCGEE MD Narrative 06/05/2024 12:44 AM EDT PROCEDURE INFORMATION: Exam: XR Pelvis Exam date and time: 06/05/2024 12:09 AM Age: 23 years old Clinical indication: Trauma TECHNIQUE: Imaging protocol: Radiologic exam of the pelvis. Views: 1 or 2 view. COMPARISON: No relevant prior studies available. FINDINGS: Bones/joints: No acute fracture. Soft tissues: No radiopaque foreign body. Procedure Note Meera Mcgee MD - 06/05/2024 PROCEDURE INFORMATION: Exam: XR Pelvis Exam date and time: 06/05/2024 12:09 AM Age: 23 years old Clinical indication: Trauma TECHNIQUE: Imaging protocol: Radiologic exam of the pelvis. Views: 1 or 2 view. COMPARISON: No relevant prior studies available. FINDINGS: Bones/joints: No acute fracture. Soft tissues: No radiopaque foreign body. IMPRESSION IMPRESSION: No evidence of acute pelvic fracture. THIS DOCUMENT HAS BEEN ELECTRONICALLY SIGNED BY MEERA MCGEE MD Victor Manuel [facility] RADIOLOGY ([facility]) * XR CHEST 1 VIEW (06/05/2024 12:23 AM EDT) Anatomical Region Laterality Modality Chest Digital Radiogra phy 06/05/2024 12:1 0 AM EDT Impressions 06/05/2024 12:45 AM EDT IMPRESSION: No evidence of acute pathology. THIS DOCUMENT HAS BEEN ELECTRONICALLY SIGNED BY MEERA MCGEE MD Narrative 06/05/2024 12:45 AM EDT PROCEDURE INFORMATION: Exam: XR Chest Exam date and time: 06/05/2024 12:10 AM Age: 23 years old Clinical indication: Trauma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 minutes. Use if patient unable to take PO. Notify provider if 2 doses are given within 2 hours., Starting on Lyndsay 06/05/24 at 0520, Until Sun06/06/24 at 2124, For 6 days, MUST FURTHER DILUTE FOR IV PUSH WITH EQUAL VOLUME OF NSS LORazepam (Ativan) inj 4 mg 4 mg, IV Push, Q1H PRN Other, CIWA-Ar Score greater than 25, repeat CIWA-Ar in 60 minutes. Assess and record Level of consciousness and Respiratory Rate just prior to each dose of LORazepam and 15 minutes after each dose of LORazepam. Hold LORazepam for Respiratory Rate less than 12, somnolent/inability to arouse. Use if patient unable to take PO. Notify provider if 2 doses are given within 2 hours., Starting on Lyndsay 06/05/24 at 0336, Until Lyndsay 06/05/24 at 0521, For 6 days, MUST FURTHER DILUTE FOR IV PUSH WITH EQUAL VOLUME OF NSS Given 06/05/2024 4:52 AM EDT 4 mg LORazepam (Ativan) inj 4 mg 4 mg, IV Push, Q15 MIN PRN Other, [place] Detoxification Scale (MINDS) Greater than 19, repeat MINDS in 15 minutes. Use if patient unable to take PO. Notify provider if 2 doses are given within 2 hours., Starting on Lyndsay 06/05/24 at 0520, Until Sun06/06/24 at 2124, For 6 days, MUST FURTHER DILUTE FOR IV PUSH WITH EQUAL VOLUME OF NSS LORazepam (Ativan) tab 1 mg 1 mg, Oral, Q1H PRN Other, [place] Detoxification Scale (MINDS) 5-14, repeat MINDS in 60 minutes. Use PO if patient able to tolerate. Notify provider if 2 doses are given within 2 hours., Starting on Lyndsay 06/05/24 at 0520, Until Sun06/06/24 at 2125, For 6 days LORAzepam (Ativan) tab 2 mg 2 mg, Oral, Q30 MIN PRN Other, [place] Detoxification Scale (MINDS) 15-19, repeat MINDS in 30 minutes. Use PO if patient able to tolerate. Notify provider if 2 doses are given within 2 hours., Starting on Lyndsay 06/05/24 at 0520, Until Sun06/06/24 at 2125, For 6 days LORAzepam (Ativan) tab 4 mg 4 mg, Oral, Q15 MIN PRN Other, [place] Detoxification Scale (MINDS) Greater than 19, repeat MINDS in 15 minutes. Use PO if patient able to tolerate. Notify provider if 2 doses are given within 2 hours., Starting on Sun06/05/24 at 0520, Until Sun06/06/24 at 2125, For 6 days midazolam (Versed) 2 MG/2ML inj 2 mg 2 mg, IV Push, ONCE, On Sun06/05/24 at 0130, For 1 dose Given 06/05/2024 1:00 AM EDT 2 mg midazolam (Versed) 2 MG/2ML inj 2 mg 2 mg, IV Push, ONCE, On Sun06/05/24 at 0245, For 1 dose Given 06/05/2024 2:29 AM EDT 2 mg midazolam (Versed) 2 MG/2ML inj 2 mg 2 mg, IV Push, ONCE, On Sun06/05/24 at 0345, For 1 dose Given 06/05/2024 3:17 AM EDT 2 mg Nicotine (Nicoderm CQ) 21 MG/24HR patch 1 Patch 1 Patch, Transdermal, Daily(AM), First dose on Sun06/06/24 at 1230, Until Discontinued, Do NOT cut the patch. Remove any Nicotine patches the patient may currently be wearing prior to applying the new patch. Place on clean hairless area. Remove for patient showers. WASTE INFO: Return packaging and waste medication in zip lock bag to pharmacy - [facility] container. NSS 0.9% 1,000 mL bolus infusion IV Piggyback, Wide open, This infusion may be completed in less than 1 hour, since it will be a wide open rate, ONCE, 1 dose, On Sun06/05/24 at 0245 New Bag 06/05/2024 2:45 AM EDT 1,000 mL 1000 mL/hr oxygen GAS Inhalation, OXYGEN, First dose on Sun06/05/24 at 0045, Until Discontinued, Device/Managed by: Low Flow Device, Goal SPO2 (%): 94 or greater, Starting Device: Nasal Cannula, Initial Flow Rate (LPM): 2, Lowest Support: Nasal Cannula: Flow 0-6 LPM. Titrate up/down by 1 LPM., Titration Interval: Q2 minutes and as needed., Notify Provider: For sudden DECREASE in resting SPO2 to less than 85% and when escalating delivery device., Wean patient off Oxygen when the oxygen saturation is greater than or equal to 93% Oxygen On 06/06/2024 8:00 AM EDT Oxygen On 06/06/2024 12:31 AM EDT sodium chloride 0.9 % flush peripheral cheri 3 mL 3 mL, IV Push, QSHIFT, First dose on Lyndsay 06/05/24 at 0045, Until Discontinued, Do not flush if lock, PICC, or central line not in place; IV infusing or unable to flush. Given 06/06/2024 8:00 AM EDT 3 mL Given 06/05/2024 12:45 AM EDT 3 mL thiamine (Vitamin B 1) 100 mg in D5W 100 mL ivpb 100 mg, IV Piggyback, Daily(AM), First dose on Lyndsay 06/05/24 at 0415, Until Discontinued, Administer over 30 Minutes New Bag 06/05/2024 5:33 AM EDT 100 mg 212 mL/hr traMADol (Ultram) tab 50 mg 50 mg, Oral, Q6H PRN Pain, Severe, Starting on Sun06/06/24 at 1403, Until Sun06/06/24 at 2125 Given 06/06/2024 2:22 PM EDT 50 mg trimethobenzamide (Tigan) inj 100 mg 100 mg, Intramuscular, QID PRN Nausea, Vomiting, Starting on Lyndsay 06/05/24 at 0344, Until Sun06/06/24 at 2125 documented in this encounter Active and Recently Administered Medications Times are shown in EDT. Scheduled Medication Order 06/04/2024 06/05/2024 06/06/2024 Enoxaparin (Lovenox) inj 40 mg 40 mg, Subcutaneous, Daily(AM), First dose on Lyndsay 06/05/24 at 0900, Until Discontinued, If patient is on warfarin, inform provider if daily INR value is 2 or greater! 0814 (Given - Provider: Philippe Banegas, RN) 0835 (Not Given - Provider: Rekha Nazario RN - Reason: Refused-Notify Provider) Folic Acid (Folvite) 1 mg in NSS 10 mL inj (CANCELED) 1 mg, IV Push, Daily(AM), First dose on Lyndsay 06/05/24 at 0415, Until Discontinued 0435 (Given - Provider: Rhina Melara, VALERIA) Iopamidol (Isovue 370) inj 80 mL (COMPLETED) 80 mL, Intravenous, ONCE, On Lyndsay 06/05/24 at 0100, For 1 dose, Radiology Medication Routing (Non-IR) 0100 (Given - Provider: Marco Mena, RT (R)) isolyte 1,000 mL bolus infusion (COMPLETED) Intravenous, Administer entire volume within 60 minutes or less. Plasma-LYTE 148, isolyte-S, and isolyte-S pH 7.4 are considered equivalent - including for MAR barcode scanning., ONCE, 1 dose, On Lyndsay 06/05/24 at 0430 0433 (New Bag - Provider: Rhina Melara RN) midazolam (Versed) 2 MG/2ML inj 2 mg (COMPLETED) 2 mg, IV Push, ONCE, On Lyndsay 06/05/24 at 0130, For 1 dose 0100 (Given - Provider: Lasha Herring RN) midazolam (Versed) 2 MG/2ML inj 2 mg (COMPLETED) 2 mg, IV Push, ONCE, On Lyndsay 06/05/24 at 0245, For 1 dose 0229 (Given - Provider: Roe Hay RN) midazolam (Versed) 2 MG/2ML inj 2 mg (COMPLETED) 2 mg, IV Push, ONCE, On Lyndsay 06/05/24 at 0345, For 1 dose 0317 (Given - Provider: Lasha Herring, VALERIA) Nicotine (Nicoderm CQ) 21 MG/24HR patch 1 Patch 1 Patch, Transdermal, Daily(AM), First dose on Sun06/06/24 at 1230, Until Discontinued, Do NOT cut the patch. Remove any Nicotine patches the patient may currently be wearing prior to applying the new patch. Place on clean hairless area. Remove for patient showers. WASTE INFO: Return packaging and waste medication in zip lock bag to pharmacy - [facility] container. 1230 (Not Given - Provider: Rekha Nazario RN - Reason: Refused-Notify Provider) NSS 0.9% 1,000 mL bolus infusion (COMPLETED) IV Piggyback, Wide open, This infusion may be completed in less than 1 hour, since it will be a wide open rate, ONCE, 1 dose, On Lyndsay 06/05/24 at 0245 0245 (New Bag - Provider: Lasha Herring, RN)0318 (Stopped - Provider: Lasha Herring, RN) oxygen GAS Inhalation, OXYGEN, First dose on Lyndsay 06/05/24 at 0045, Until Discontinued, Device/Managed by: Low Flow Device, Goal SPO2 (%): 94 or greater, Starting Device: Nasal Cannula, Initial Flow Rate (LPM): 2, Lowest Support: Nasal Cannula: Flow 0-6 LPM. Titrate up/down by 1 LPM., Titration Interval: Q2 minutes and as needed., Notify Provider: For sudden DECREASE in resting SPO2 to less than 85% and when escalating delivery device., Wean patient off Oxygen when the oxygen saturation is greater than or equal to 93% 0045 (Oxygen Off - Provider: Rhina Melara RN)0800 (Oxygen Off - Provider: Philippe Banegas RN)1600 (Oxygen Off - Provider: Philippe Banegas RN) 0031 (Oxygen On - Provider: Diane Nix RN)0800 (Oxygen On - Provider: Rekha Nazario, VALERIA)1600 (Oxygen Off - Provider: Rekha Nazario RN) sodium chloride 0.9 % flush peripheral cheri 3 mL 3 mL, IV Push, QSHIFT, First dose on Lyndsay 06/05/24 at 0045, Until Discontinued, Do not flush if lock, PICC, or central line not in place; IV infusing or unable to flush. 0045 (Given - Provider: Rhina Melara RN)0800 (Not Given - Provider: Philippe Banegas RN - Reason: Parameter(s) Not Met - Comment: fluids infusing)1600 (Not Given - Provider: Philippe Banegas RN - Reason: Parameter(s) Not Met - Comment: fluids infusing) 0030 (Not Given - Provider: Diane Nix RN - Reason: Other- Please add reason in Comments - Comment: IVF infusing)0800 (Given - Provider: Rekha Nazario, VALERIA)1600 (Not Given - Provider: Rekha Nazario RN - Reason: Parameter(s) Not Met) thiamine (Vitamin B 1) 100 mg in D5W 100 mL ivpb (CANCELED) 100 mg, IV Piggyback, Daily(AM), First dose on Lyndsay 06/05/24 at 0415, Until Discontinued, Administer over 30 Minutes 0533 (New Bag - Provider: Rhina Melara, RN) Continuous Medication Order 06/04/2024 06/05/2024 06/06/2024 D51/2 NSS 1,000 mL with sodium bicarbonate 40 mEq INFUSION Intravenous, at 75 mL/hr, CONTINUOUS, Starting on Lyndsay 06/05/24 at 1745, Until Sun06/06/24 at 2125 1744 (New Bag - Provider: Philippe Banegas, RN) 0640 (Stopped - Provider: Diane Nix, RN)0640 (New Bag - Provider: Pascale James, VALERIA)0700 (Rate Verify - Provider: Diane Nix, RN)2125 (Due: Stopped) dexmedeTOMIDine (Precedex) 400 mcg in 100 mL infusion Order Mode: Standard Titration, Starting Rate (mcg/kg/hr): 0.2, Infusion Titration Adjustments: Increase or decrease by up to 0.2 mcg/kg/hr no more frequently than every 15 minutes to maintain specified goal RASS, Maximum Dose: 1.5 mcg/kg/hr, Patient Transfer: Patient should be transferred to a higher level of care if rate exceeds nursing unit specific guidelines., Notes to Nursing: Caution in BRADYcardia and HYPOtension. Reorient the patient, assess and treat pain separately. Abort acute agitation by seeking provider assistance., 0-1.5 mcg/kg/hr 76.5 kg (0-28.6875 mL/hr, rounded to 0-28.69 mL/hr), Please select this medication from the infusion pump library, TITRATE, Starting on Lyndsay 06/05/24 at 0500, Until Sun06/06/24 at 2125, Intravenous 0424 (New Bag - Provider: Rhina Melara, RN)0429 (Rate Change - Provider: Rhina Melara RN - Comment: per CAROLINA Rayo)0434 (Rate Change - Provider: Rhina Melara RN - Comment: per CAROLINA Rayo)0500 (Rate Change - Provider: Leilani Poole, VALERIA)0840 (New Bag - Provider: Elsie L Walker, RN)1015 (Rate Change - Provider: Philippe Banegas RN)1211 (Rate Change - Provider: Philippe Banegas RN)1339 (Rate Change - Provider: Philippe Banegas RN)1433 (Rate Change - Provider: Philippe Banegas RN)1619 (New Bag - Provider: Elsie Boone RN)1636 (New Bag - Provider: Philippe Banegas, RN)1849 (Rate Change - Provider: Philippe Banegas, RN) 0700 (Rate Verify - Provider: Diane Nix, VALERIA)0817 (Rate Change - Provider: Rekha Nazario, VALERIA)2125 (Due: Stopped) isolyte-S pH 7.4 infusion (CANCELED) Intravenous, at 125 mL/hr, Plasma-LYTE 148, isolyte-S, and isolyte-S pH 7.4 are considered equivalent - including for MAR barcode scanning., CONTINUOUS, Starting on Sun06/05/24 at 0415, Until Sun06/05/24 at 1702 0431 (New Bag - Provider: Rhina Melara, RN)0432 (Stopped - Provider: Rhina Melara, RN)0533 (New Bag - Provider: Rhina Melara, RN)1352 (New Bag - Provider: Philippe Banegas, RN)1702 (Stopped - Provider: Philippe Banegas RN) PRN Medication Order 06/04/2024 06/05/2024 06/06/2024 Acetaminophen (Tylenol) supp 650 mg 650 mg, Rectal, Q6H PRN Pain, Mild, Use if patient unable to take oral acetaminophen, Starting on Sun06/05/24 at 0334, Until Sun06/06/24 at 2124, Maximum of 4 grams (4000mg) per day. Acetaminophen (Tylenol) tab 650 mg 650 mg, Oral, Q6H PRN Pain, Moderate, Starting on Sun06/06/24 at 1404, Until Sun06/06/24 at 2124, Maximum of 4 grams (4000 mg) per day. LORazepam (Ativan) inj 1 mg(Linked Group 1) 1 mg, IV Push, Q1H PRN Other, [place] Detoxification Scale (MINDS) 5-14, repeat MINDS in 60 minutes. Use if patient unable to take PO. Notify provider if 2 doses are given within 2 hours., Starting on Lyndsay 06/05/24 at 0520, Until Sun06/06/24 at 2125, For 6 days, MUST FURTHER DILUTE FOR IV PUSH WITH EQUAL VOLUME OF NSS LORazepam (Ativan) inj 2 mg(Linked Group 2) 2 mg, IV Push, Q30 MIN PRN Other, [place] Detoxification Scale (MINDS) 15-19, repeat MINDS in 30 minutes. Use if patient unable to take PO. Notify provider if 2 doses are given within 2 hours., Starting on Lyndsay 06/05/24 at 0520, Until Sun06/06/24 at 2125, For 6 days, MUST FURTHER DILUTE FOR IV PUSH WITH EQUAL VOLUME OF NSS LORazepam (Ativan) inj 4 mg (CANCELED)(Linked Group 3) 4 mg, IV Push, Q1H PRN Other, CIWA-Ar Score greater than 25, repeat CIWA-Ar in 60 minutes. Assess and record Level of consciousness and Respiratory Rate just prior to each dose of LORazepam and 15 minutes after each dose of LORazepam. Hold LORazepam for Respiratory Rate less than 12, somnolent/inability to arouse. Use if patient unable to take PO. Notify provider if 2 doses are given within 2 hours., Starting on Lyndsay 06/05/24 at 0336, Until Lyndsay 06/05/24 at 0521, For 6 days, MUST FURTHER DILUTE FOR IV PUSH WITH EQUAL VOLUME OF NSS 0452 (Given - Provider: Leilani Poole RN) LORazepam (Ativan) inj 4 mg(Linked Group 4) 4 mg, IV Push, Q15 MIN PRN Other, [place] Detoxification Scale (MINDS) Greater than 19, repeat MINDS in 15 minutes. Use if patient unable to take PO. Notify provider if 2 doses are given within 2 hours., Starting on Lyndsay 06/05/24 at 0520, Until Sun06/06/24 at 2125, For 6 days, MUST FURTHER DILUTE FOR IV PUSH WITH EQUAL VOLUME OF NSS LORazepam (Ativan) tab 1 mg(Linked Group 1) 1 mg, Oral, Q1H PRN Other, [place] Detoxification Scale (MINDS) 5-14, repeat MINDS in 60 minutes. Use PO if patient able to tolerate. Notify provider if 2 doses are given within 2 hours., Starting on Lyndsay 06/05/24 at 0520, Until Sun06/06/24 at 2124, For 6 days LORAzepam (Ativan) tab 2 mg(Linked Group 2) 2 mg, Oral, Q30 MIN PRN Other, [place] Detoxification Scale (MINDS) 15-19, repeat MINDS in 30 minutes. Use PO if patient able to tolerate. Notify provider if 2 doses are given within 2 hours., Starting on Lyndsay 06/05/24 at 0520, Until Sun06/06/24 at 2124, For 6 days LORAzepam (Ativan) tab 4 mg(Linked Group 4) 4 mg, Oral, Q15 MIN PRN Other, [place] Detoxification Scale (MINDS) Greater than 19, repeat MINDS in 15 minutes. Use PO if patient able to tolerate. Notify provider if 2 doses are given within 2 hours., Starting on Lyndsay 06/05/24 at 0520, Until Sun06/06/24 at 2124, For 6 days sodium chloride 0.9 % flush/inj 3 mL 3 mL, IV Push, PRN Other, Line Patency, Starting on Sun06/05/24 at 0332, Until Sun06/06/24 at 2124, Do not flush if lock, PICC, or central line not in place, IV infusing or unable to flush traMADol (Ultram) tab 50 mg 50 mg, Oral, Q6H PRN Pain, Severe, Starting on Sun06/06/24 at 1403, Until Sun06/06/24 at 2124 1422 (Given - Provid er: Rekha Nazario RN) trimethobenzamide (Tigan) inj 100 mg 100 mg, Intramuscular, QID PRN Nausea, Vomiting, Starting on Lyndsay 06/05/24 at 0344, Until Sun06/06/24 at 2124 Linked Groups Order Group 1: LORazepam (Ativan) tab 1 mgJump to med 1 mg, Oral, Q1H PRN Other, [place] Detoxification Scale (MINDS) 5-14, repeat MINDS in 60 minutes. Use PO if patient able to tolerate. Notify provider if 2 doses are given within 2 hours., Starting on Lyndsay 06/05/24 at 0520, Until Sun06/06/24 at 2124, For 6 days Or LORazepam (Ativan) inj 1 mgJump to med 1 mg, IV Push, Q1H PRN Other, [place] Detoxification Scale (MINDS) 5-14, repeat MINDS in 60 minutes. Use if patient unable to take PO. Notify provider if 2 doses are given within 2 hours., Starting on Lyndsay 06/05/24 at 0520, Until Sun06/06/24 at 2125, For 6 days, MUST FURTHER DILUTE FOR IV PUSH WITH EQUAL VOLUME OF NSS Group 2: LORAzepam (Ativan) tab 2 mgJump to med 2 mg, Oral, Q30 MIN PRN Other, [place] Detoxification Scale (MINDS) 15-19, repeat MINDS in 30 minutes. Use PO if patient able to tolerate. Notify provider if 2 doses are given within 2 hours., Starting on Lyndsay 06/05/24 at 0520, Until Sun06/06/24 at 2125, For 6 days Or LORazepam (Ativan) inj 2 mgJump to med 2 mg, IV Push, Q30 MIN PRN Other, [place] Detoxification Scale (MINDS) 15-19, repeat MINDS in 30 minutes. Use if patient unable to take PO. Notify provider if 2 doses are given within 2 hours., Starting on Lyndsay 06/05/24 at 0520, Until Sun06/06/24 at 2125, For 6 days, MUST FURTHER DILUTE FOR IV PUSH WITH EQUAL VOLUME OF NSS Group 3: LORAzepam (Ativan) tab 4 mg (CANCELED) 4 mg, Oral, Q1H PRN Other, CIWA-Ar Score greater than 25, repeat CIWA-Ar in 60 minutes. Assess and record Level of consciousness and Respiratory Rate just prior to each dose of LORazepam and 15 minutes after each dose of LORazepam. Hold LORazepam for Respiratory Rate less than 12, somnolent/inability to arouse. Use PO if patient able to tolerate. Notify provider if 2 doses are given within 2 hours., Starting on Lyndsay 06/05/24 at 0336, Until Lyndsay 06/05/24 at 0521, For 6 days Or LORazepam (Ativan) inj 4 mg (CANCELED)Jump to med 4 mg, IV Push, Q1H PRN Other, CIWA-Ar Score greater than 25, repeat CIWA-Ar in 60 minutes. Assess and record Level of consciousness and Respiratory Rate just prior to each dose of LORazepam and 15 minutes after each dose of LORazepam. Hold LORazepam for Respiratory Rate less than 12, somnolent/inability to arouse. Use if patient unable to take PO. Notify provider if 2 doses are given within 2 hours., Starting on Lyndsay 06/05/24 at 0336, Until Lyndsay 06/05/24 at 0521, For 6 days, MUST FURTHER DILUTE FOR IV PUSH WITH EQUAL VOLUME OF NSS Group 4: LORAzepam (Ativan) tab 4 mgJump to med 4 mg, Oral, Q15 MIN PRN Other, [place] Detoxification Scale (MINDS) Greater than 19, repeat MINDS in 15 minutes. Use PO if patient able to tolerate. Notify provider if 2 doses are given within 2 hours., Starting on Lyndsay 06/05/24 at 0520, Until Sun06/06/24 at 2125, For 6 days Or LORazepam (Ativan) inj 4 mgJump to med 4 mg, IV Push, Q15 MIN PRN Other, [place] Detoxification Scale (MINDS) Greater than 19, repeat MINDS in 15 minutes. Use if patient unable to take PO. Notify provider if 2 doses are given within 2 hours., Starting on Lyndsay 06/05/24 at 0520, Until Sun06/06/24 at 2125, For 6 days, MUST FURTHER DILUTE FOR IV PUSH WITH EQUAL VOLUME OF NSS documented in this encounter Advance Directives * [...] the patient have Health Care Power of Enrollment Counselor? No * Full Code Date Activated Date [...] and were consensually agreed upon. Care Teams Scalder Relationship Specialty Start Date End Date Mulugeta Arnett MD [address] [id number] PCP - General Family Medicine 07/16/23 documented as of this encounter
--- OUTSIDE RECORDS SUMMARY | 2024-06-18 10:34 | External Medical Summary ---
Author Name Unknown Address Unknown Organization [id number]:[facility] - [address] [place] [address] Laboratory Report Ordering Provider Test Date Status ONESIMO MÉNDEZ 06/05/2024 02:41:48 Final Observation Date Value Abnormality Reference (Units ) Status Color of Urine by Auto 06/05/2024 02:41:48 Yellow Light Yellow, Yellow, Dark Yellow Final Clarity, Urine 06/05/2024 02:41:48 Clear Clear Final Glucose [Mass/volume] in Urine by Automated test strip 06/05/2024 02:41:48 Negative Negative (mg/dL) Final Bilirubin.total [Presence] in Urine by Automated test strip 06/05/2024 02:41:48 Negative Negative Final Ketones [Mass/volume] in Urine by Automated test strip 06/05/2024 02:41:48 Negative Negative (mg/dL) Final Specific gravity, Urine 06/05/2024 02:41:48 1.026 1.003-1.030 Final Hemoglobin [Presence] in Urine by Automated test strip 06/05/2024 02:41:48 Negative Negative Final pH, Urine 06/05/2024 02:41:48 7.0 5.0-7.5 (Units) Final Protein [Mass/volume] in Urine by Automated test strip 06/05/2024 02:41:48 Negative Negative (mg/dL) Final Urobilinogen [Mass/volume] in Urine by Automated test strip 06/05/2024 02:41:48 0.2 0.2, 1.0 (mg/dL) Final Nitrite [Presence] in Urine by Automated test strip 06/05/2024 02:41:48 Negative Negative Final Leukocyte esterase [Presence] in Urine by Automated test strip 06/05/2024 02:41:48 Negative Negative Final Annotation Comment 06/05/2024 02:41:48 Final Screen negative - Microscopi c not performed. Performing Location [facility] - [address] [place] [id number]
--- OUTSIDE RECORDS SUMMARY | 2024-06-18 10:34 | External Medical Summary ---
Author Name Unknown Address Unknown Organization : Laboratory Report Ordering Provider Test Date Status MINOO GOOD 06/05/2024 20:47:06 Final Observation Date Value Abnormality Reference (Units ) Status Glucose Point of Care 06/05/2024 20:47:06 99 70-120 (mg/dL) Final Performing Location
--- OUTSIDE RECORDS SUMMARY | 2024-06-18 10:34 | External Medical Summary ---
Author Name Unknown Address Unknown Organization K1F:LABORATORY [facility] - [address] [address] Laboratory Report Ordering Provider Test Date Status ONESIMO MÉNDEZ 06/05/2024 00:32:00 Final Observation Date Value Abnormality Reference (Units ) Status Troponin T 06/05/2024 00:32:00 51 Above high normal < =22 (ng/L) Final Performing Location LABORATORY [facility] - [address] [address]
--- OUTSIDE RECORDS SUMMARY | 2024-06-18 10:34 | External Medical Summary ---
Author Name Unknown Address Unknown Organization K1F:LABORATORY [facility] - [address] [place] [address] [facility] [address] Laboratory Report Ordering Provider Test Date Status ONESIMO MÉNDEZ 06/05/2024 02:41:48 Final Cutoff Concentrations:
Drug Level
Amphetamines 500 ng/mL
Benzodiazepines 100 ng/mL
Cannabinoids 50 ng/mL
Cocaine Metabolite 150 ng/mL
Fentanyl 1 ng/mL
Hydrocodone / Hydromorphone 300 ng/mL
Methadone Metabolite 100 ng/mL
Morphine / Codeine 300 ng/mL
Oxycodone / Oxymorphone 100 ng/mL

Screening results are presumptive and can only be used for medical purposes. Positive screening results are reflexed to confirmatory testing. Observation Date Value Abnormality Reference (Units ) Status Amphetamines, Urine screen 06/05/2024 02:41:48 Negative Negative Final Benzodiazepines, Urine screen 06/05/2024 02:41:48 Positive Abnormal Negative Final Cannabinoids, Urine screen 06/05/2024 02:41:48 Negative Negative Final Cocaine Metabolite, Urine screen 06/05/2024 02:41:48 Positive Abnormal Negative Final fentaNYL [Presence] in Urine by Screen method 06/05/2024 02:41:48 Negative Negative Final HYDROcodone [Presence] in Urine by Screen method 06/05/2024 02:41:48 Negative Negative Final 5-Nieybnfqxk-0,5-Dimeth yl-3,3-Diphenylpyrrolid ine (EDDP) [Presence] in Urine 06/05/2024 02:41:48 Negative Negative Final Opiates, Urine screen 06/05/2024 02:41:48 Negative Negative Final oxyCODONE [Presence] in Urine by Screen method 06/05/2024 02:41:48 Negative Negative Final Performing Location LABORATORY [facility] - [address] [place] [address]
--- OUTSIDE RECORDS SUMMARY | 2024-06-18 10:34 | External Medical Summary | Summary of Care ---
Author Name Unknown Organization [facility] Address [address] [place] [address] Phone [phone] Care Team Providers Care Insole Beveler Name Role Phone Mulugeta Arnett MD Primary Care Provider Encounter Details Date Type Department Care Team ([facility] Contact Info) Description 06/06/2024 Population Health External Data Unspecified Department Allergies [...] Suspended Cyclobenzaprine HCl 10 MG Oral Tablet (Flexeril)Indicati ons:Right-sided low back pain without sciatica, unspecified chronicity Take 1 Tablet by mouth at bedtime as needed for Muscle spasms. 10 Tablet 04/03/2024 Suspended Additional Information Naloxone HCl 4 MG/0.1ML Nasal Liquid (Narcan Nasal) Administer 1 spray into 1 nostril for suspected opioid overdose. Seek immediate medical attention. [email or web address]?v=[email or web address] 1 Each 3 04/12/2024 Suspended Additional Information Nicotine 21 MG/24HR Transdermal Patch 24 Hour (Nicoderm CQ) Place 1 Patch topically on the skin daily. 04/16/2024 Suspended documented as of this encounter (statuses as of 06/06/2024) Active Problems Problem Noted Date Diagnosed Date AMS (altered mental status) 06/05/2024 Overdose of undetermined intent 06/05/2024 Elevated troponin 06/05/2024 Food insecurity 04/21/2024 Overview: Per [facility] Protocol Uncomplicated asthma 04/03/2024 History of [...] Date Resolved Date Aggressive behavior 10/07/2023 10/15/19 Psychosis 10/07/2023 10/15/2023 Cellulitis of right leg 07/12/2023 07/3 Sepsis without acute organ dysfunction 07/12/2023 03/11/2024 [...] 06/18/2024 10:00 AM EST Office Visit Cardiology, [place] [address] [address] Rianna Batista MD [address] [place] [phone] 08/05/2024 2:40 PM EST Office Visit Family Practice, [place] [address] [phone] Stacy Hopson CRNP [address] [address] Health Maintenance Due Date Last Done Comments DISCUSS TOBACCO CESSATION (Michelle MOSELEY SMARTSET #[id number]) 1999 Pneumococcal Vaccine: Pediat rics (0 to [...] the patient have Health Care Power of Wood Chopper? No * Full Code Date Activated Date [...] and were consensually agreed upon. Care Teams Insole Beveler Relationship Specialty Start Date End Date Mulugeta Arnett MD [address] [phone] PCP - General Family Medicine 07/16/23 documented as of this encounter
--- OUTSIDE RECORDS SUMMARY | 2024-06-18 10:34 | External Medical Summary ---
Author Name Unknown Address Unknown Organization K1F:LABORATORY [facility] - [address] [address] Laboratory Report Ordering Provider Test Date Status JESSICA ASCENCIO 06/05/2024 04:41:00 Final Observation Date Value Abnormality Reference (Units ) Status Magnesium 06/05/2024 04:41:00 1.8 1.5-2.6 (m g/dL) Final Performing Location LABORATORY [facility] - [address] [address]
--- OUTSIDE RECORDS SUMMARY | 2024-06-18 10:34 | External Medical Summary ---
Author Name Unknown Address Unknown Organization : Laboratory Report Ordering Provider Test Date Status MINOO GOOD 06/06/2024 00:13:34 Final Observation Date Value Abnormality Reference (Units ) Status Glucose Point of Care 06/06/2024 00:13:34 93 70-120 (mg/dL) Final Performing Location
--- OUTSIDE RECORDS SUMMARY | 2024-06-18 10:34 | External Medical Summary | Summary of Care ---
Author Name Unknown Organization [facility] Address [address] [place] [address] Phone [phone] Care Team Providers Care Retail Department Manager Name Role Phone Mulugeta Arnett MD Primary Care Provider Encounter Details Date Type Department Care Team ([facility] Contact Info) Description 06/05/2024 Population Health External Data Unspecified Department Allergies No known active allergiesdocumented as of this encounter (statuses as of 06/05/2024) Medications Medication Sig Dispensed Refills Start Date End Date Status Diclofenac Sodium 75 MG Oral Tablet Delayed Release (Voltaren)Indicati ons:Chronic low back pain with sciatica, sciatica laterality unspecified, unspecified back pain laterality Take 1 Tablet by mouth in the morning and 1 Tablet before bedtime. With food.. 60 Tablet 03/11/2024 Suspended Additional Information hydrOXYzine HCl 10 MG Oral Tablet (Atarax)Indication s:Anxiety Take 1 Tablet by mouth every 8 hours as needed for Anxiety. 30 Tablet 03/11/2024 Suspended Additional Information Buprenorphine HCl 8 MG Sublingual Tablet Sublingual (Subutex) Place 1 Tablet under the tongue in the morning. 03/13/2024 Suspended Albuterol Sulfate HFA 108 (90 Base) MCG/ACT Inhalation Aerosol Solution Inhale 2 Puffs by mouth in the morning and 2 Puffs at noon and 2 Puffs in the evening and 2 Puffs before bedtime. 03/13/2024 Suspended Gabapentin 300 MG Oral Capsule (Neurontin) Take 1 Capsule by mouth in the morning. 03/20/2024 Suspended Haloperidol 5 MG Oral Tablet [...] suspected opioid overdose. Seek immediate medical attention. https://www.CombiMatrix.com/watch?v=v2 [email or web address] 1 Each 3 04/12/2024 Suspended Additional Information documented as of this encounter (statuses as of 06/05/2024) Active Problems Problem Noted Date Diagnosed Date AMS (altered mental status) 06/05/2024 Overdose of undetermined intent 06/05/2024 Food insecurity 04/21/2024 Overview: Per [email or web address] Protocol Uncomplicated asthma 04/03/2024 History of [...] as of this encounter (statuses as of 06/05/2024) Resolved Problems Problem Noted Date Diagnosed Date Resolved Date Aggressive behavior 10/07/2023 10/15/19 Psychosis 10/07/2023 10/15/2023 Cellulitis of right leg 07/12/2023 07/3 Sepsis without acute organ dysfunction 07/12/2023 03/11/2024 Tobacco use disorder 09/03/2015 024 documented as of this encounter (statuses as of 06/05/2024) Immunizations Name Administration Dates Next Due DTaP [...] 06/18/2024 10:00 AM EST Office Visit Cardiology, [place] [address] [place] [address] Rianna Batista MD [address] [place] [address] 08/05/2024 2:40 PM EST Office Visit Family Practice, [place] [address] [phone] Stacy Hopson CRNP [address] [phone] Health Maintenance Due Date Last Done Comments DISCUSS TOBACCO CESSATION (R KERA TO SMARTSET #[id number]) 1999 Pneumococcal Vaccine: Pediat rics (0 to [...] the patient have Health Care Power of Software Licensing Analyst? No * Full Code Date Activated Date [...] and were consensually agreed upon. Care Teams Retail Department Manager Relationship Specialty Start Date End Date Mulugeta Arnett MD [address] [id number] PCP - General Family Medicine 07/16/23 documented as of this encounter
--- OUTSIDE RECORDS SUMMARY | 2024-06-18 10:34 | External Medical Summary ---
Author Name Unknown Address Unknown Organization K1F:LABORATORY [facility] - [address] [address] Laboratory Report Ordering Provider Test Date Status JESSICA ASCENCIO 06/05/2024 04:41:00 Final Observation Date Value Abnormality Reference (Units ) Status Troponin T 06/05/2024 04:41:00 52 Above high normal < =22 (ng/L) Final Performing Location LABORATORY [facility] - [address] [address]
--- OUTSIDE RECORDS SUMMARY | 2024-06-18 10:34 | External Medical Summary ---
Author Name Unknown Address Unknown Organization K1F:LABORATORY [facility] - [address] [address] Laboratory Report Ordering Provider Test Date Status JESSICA ASCENCIO 06/05/2024 04:41:00 Final Observation Date Value Abnormality Reference (Units ) Status Lactic Acid 06/05/2024 04:41:00 2.1 Above high normal 0.4-2.0 (mmol/L) Final Performing Location LABORATORY [facility] - [address] [address]
--- OUTSIDE RECORDS SUMMARY | 2024-06-18 10:35 | External Medical Summary ---
Author Name Unknown Address Unknown Organization K1F:LABORATORY [facility] - [address] [address] Laboratory Report Ordering Provider Test Date Status ONESIMO MÉNDEZ 06/05/2024 00:32:00 Final Observation Date Value Abnormality Reference (Units ) Status Acetaminophen 06/05/2024 00:32:00 <5.0 Below low normal 10.0-30.0 (ug/mL) Final Performing Location LABORATORY [facility] - [address] [address]
--- OUTSIDE RECORDS SUMMARY | 2024-06-18 10:35 | External Medical Summary ---
Author Name Unknown Address Unknown Organization : Laboratory Report Ordering Provider Test Date Status ONESIMO MÉNDEZ 06/04/2024 23:42:30 Final Observation Date Value Abnormality Reference (Units ) Status Glucose Point of Care 06/04/2024 23:42:30 168 Above high normal 70-120 (mg/dL) Final Performing Location
--- OUTSIDE RECORDS SUMMARY | 2024-06-18 10:35 | External Medical Summary | Summary of Care ---
Author Name Unknown Organization [facility] Address [address] [place] [address] Phone [phone] Care Team Providers Care Hydrodynamics Teacher Name Role Phone Mulugeta Arnett MD Primary Care Provider Encounter Details Date Type Department Care Team ([facility] Contact Info) Description 04/23/2024 Population Health External Data Unspecified Department Allergies No known active allergiesdocumented as of this encounter (statuses as of 04/23/2024) Medications Medication Sig Dispensed Refills Start Date End Date Status Diclofenac Sodium 75 MG Oral Tablet Delayed Release (Voltaren)Indicatio ns:Chronic low back pain with sciatica, sciatica laterality unspecified, unspecified back pain laterality Take 1 Tablet by mouth in the morning and 1 Tablet before bedtime. With food.. 60 Tablet 03/11/2024 Active hydrOXYzine HCl 10 MG Oral Tablet (Atarax)Indications :Anxiety Take 1 Tablet by mouth every 8 hours as needed for Anxiety. 30 Tablet 03/11/2024 Active Buprenorphine HCl 8 MG Sublingual Tablet Sublingual [...] Capsule by mouth in the morning. 03/20/2024 Active Haloperidol 5 MG Oral Tablet [...] Active Cyclobenzaprine HCl 10 MG Oral Tablet (Flexeril)Indicatio ns:Right-sided low back pain without sciatica, unspecified chronicity Take 1 Tablet by mouth at bedtime as needed for Muscle spasms. 10 Tablet 04/03/2024 Active Buprenorphine HCl 8 MG Sublingual Tablet Sublingual (Subutex) Place 1 Tablet under the tongue in the morning for 14 days. 14 Tablet 04/12/2024 04/26/2024 Active Naloxone HCl 4 MG/0.1ML Nasal Liquid (Narcan Nasal) Administer 1 spray into 1 nostril for suspected opioid overdose. Seek immediate medical attention. https://[email or web address] [email or web address]/watch?v=v2 [email or web address] 1 Each 3 04/12/2024 Active documented as of this encounter (statuses as of 04/23/2024) Active Problems Problem Noted Date Diagnosed Date Uncomplicated asthma 04/03/2024 History of posttraumatic stress [...] as of this encounter (statuses as of 04/23/2024) Resolved Problems Problem Noted Date Diagnosed Date Resolved Date Aggressive behavior 10/07/2023 10/15/19 24 Psychosis 10/07/2023 10/15/2023 Cellulitis of right leg 07/12/2023 07/3 Sepsis without acute organ dysfunction 07/12/2023 03/11/2024 Tobacco use disorder 09/03/2015 024 documented as of this encounter (statuses as of 04/23/2024) Immunizations Name Administration Dates Next Due DTaP [...] Conjugate Vacci ne, 7 Valent 01/23/2001,10/24/2000 Seasonal Influenza, Trivalen t, (IIV3), with Preserv, (Fluzone) 06/10/2009 TDAP, Age 7 and older, [...] you have serious difficulty h earing? No 10/07/2023 Are you blind or do you have serious difficulty seeing, even when wearing glasses? No 10/07/2023 Do you have serious difficul ty walking or climbing stairs? (5 years old or older) No 10/07/2023 Do you have difficulty dress ing or bathing? (5 years old or older) No 10/07/2023 Because of a physical, menta l, or emotional condition, do you have difficulty doing errands alone such as visiting a doctor s office or shopping? (15 years old or older) No 10/07/19 Cognitive Status Response Date of Assessm ent Because of a physical, menta l, or emotional condition, do you have serious difficulty concentrating, remembering, or making decisions? (5 years old or older) No 10/07/2023 documented as of this encounter Plan of Treatment Upcoming Encounters Date Type Department Care Team (Late st Contact Info) Description 04/23/2024 8:20 AM EDT [facility] [address] [phone] Mulugeta Arnett MD [address] [phone] Arrived 05/07/2024 2:10 PM EDT Office Visit Optometry, [place] [address] [place] [address] Greg Reddy Jr., OD [address] [place] [address] 06/18/2024 10:00 AM EST [facility] [address] [place] [place] [address] [facility] Batista [facility] [address] [facility] [place] [address] 08/05/2024 2:40 PM EST [facility] [address] [phone] Stacy Hopson CRNP [address] [address] Health Maintenance Due Date Last Done Comments DISCUSS TOBACCO CESSATION (Michelle COTE TO SMARTSET #[id number]) 1999 Pneumococcal Vaccine: Pediat rics (0 to 5 Years) and At-Risk Patients (6 to 64 Years) (1 of 2 - PCV) 2005 HPV (Gardasil) Vaccine (2 - Male 2-dose series) 07/06/2011 01/03/2011 DTap/Tdap Vaccines (7 - Td o r Tdap) 01/03/2021 01/03/2011, 03/28/2005, 10/24/2000, Additional history exists *SPIROMETRY ONCE FOR ASTHMA-ADULT 04/06/2024 COVID-19 Vaccine (1 - 2022-2 4 season) 2024 Influenza Vaccine (FLU shot) (#1) 2024 009 Depression Monitoring 10/14/2024 10/15/2023 Hepatitis B Vaccine Completed 01/19/2000, 1999, 1999 MENINGOCOCCAL (MENACTRA/MENVEO) Completed 11/14/2016, 09/03/2015, 01/03/2011 documented as of this encounter Medical Devices Not on filedocumented as of this encounter Advance Directives * Full Code (Latest Code Status on File) Date Activated Date Inactivated Comments 10/08/2023 4:41 [...] and were consensually agreed upon. Care Teams Hydrodynamics Teacher Relationship Specialty Start Date End Date Mulugeta Arnett MD [address] [phone] PCP - General Family Medicine 07/16/23 documented as of this encounter
--- OUTSIDE RECORDS SUMMARY | 2024-06-18 10:35 | External Medical Summary | Summary of Care ---
Author Name Unknown Organization [facility] Address [address] [place] [address] Phone [phone] Care Team Providers Care Catcher Filter Tip Name Role Phone Mulugeta Arnett MD Primary Care Provider Reason for Visit * Reason Onset Date Comments No Show 05/16/2024 [facility] No Show Auto mation Encounter Details Date Type Department Care Team ([facility] st Contact Info) Description [facility] [place] [address] [place] [address] Salvador Valentin Jr., EL [address] [place] [address] No Show ([place] No Show Automation) Allergies No known active allergiesdocumented as of this encounter (statuses as of 05/16/2024) Medications Medication Sig Dispensed Refills Start Date End Date Status Diclofenac Sodium 75 MG Oral Tablet Delayed Release (Voltaren)Indication s:Chronic low back pain with sciatica, sciatica laterality unspecified, unspecified back pain laterality Take 1 Tablet by mouth in the morning and 1 Tablet before bedtime. With food.. 60 Tablet 03/11/2024 Active hydrOXYzine HCl 10 MG Oral Tablet (Atarax)Indications: Anxiety Take 1 Tablet by mouth every 8 [...] suspected opioid overdose. Seek immediate medical attention. https://www.youtub [email or web address]/watch?v=v26c Xyn5MiZ 1 Each 3 04/12/2024 Active documented as of this encounter (statuses as of 05/16/2024) Active Problems Problem Noted Date Diagnosed Date Food insecurity 04/21/2024 Overview: Per [facility] Protocol Uncomplicated asthma 04/03/2024 History of [...] as of this encounter (statuses as of 05/16/2024) Resolved Problems Problem Noted Date Diagnosed Date Resolved Date Aggressive behavior 10/07/2023 10/15/19 24 Psychosis 10/07/2023 10/15/2023 Cellulitis of right leg 07/12/2023 07 Sepsis without acute organ dysfunction 07/12/2023 03/11/2024 Tobacco use disorder 09/03/2015 024 documented as of this encounter (statuses as of 05/16/2024) Immunizations Name Administration Dates Next Due DTaP [...] No 10/07/2023 documented as of this encounter Miscellaneous Notes * Telephone Encounter - [place], No Show - 05/16/2024 5:16 AM EDT Dear Luis Toro, Looks like you missed an appointment with SALVADOR VALENTIN JR on 05/07/2024 at 02:10 PM. If you haven't already rescheduled, you have a couple of options: Reschedule in [email or web address] Call us at [phone] Can't make a future appointment? Cancel and let someone else have your spot! It's easy to do via [employer] or by calling us. Thanks for trusting [facility] with your care. We hope to see you back in our office soon. Sincerely, SALVADOR VALENTIN JR documented in this encounter Plan of Treatment Upcoming Encounters Date Type Department Care Team (Late st Contact Info) Description 06/18/2024 10:00 AM EST Office Visit [facility] [address] [address] Rianna Batista MD [address] [address] 08/05/2024 2:40 PM EST Office Visit [facility] [place] [address] [phone] Stacy Hopson CRNP [address] [phone] Health Maintenance Due Date Last Done Comments DISCUSS TOBACCO CESSATION (R EFER TO SMARTSET #[id number]) 1999 Pneumococcal Vaccine: Pediat rics (0 to [...] and were consensually agreed upon. Care Teams Catcher Filter Tip Relationship Specialty Start Date End Date Mulugeta Arnett MD [address] [address] PCP - General Family Medicine 07/16/23 documented as of this encounter
--- OUTSIDE RECORDS SUMMARY | 2024-06-18 10:35 | External Medical Summary ---
Author Name Unknown Address Unknown Organization K1F:LABORATORY [facility] - [address] [address] Laboratory Report Ordering Provider Test Date Status ONESIMO MÉNDEZ 06/05/2024 00:32:00 Final Warfarin Therapy
INR: 2 .0-3.0 conventional anticoagulation
INR: 2.5- 3.5 high intensity anticoagulation Observation Date Value Abnormality Reference (Units ) Status PT 06/05/2024 00:32:00 13.9 11.6-15.2 (seconds) Final INR 06/05/2024 00:32:00 1.1 0.8-1.2 Final Performing Location LABORATORY [facility] - [address] [address]
--- OUTSIDE RECORDS SUMMARY | 2024-06-18 10:35 | External Medical Summary | Summary of Care ---
Author Name Unknown Organization [facility] Address [address] [place] [address] Phone [phone] Care Team Providers Care Insurance And Financial Services Agent Name Role Phone Mulugeta Arnett MD Primary Care Provider Reason for Visit * Reason Comments Psychological Evaluation Rapid Heart Rate * Auth/Cert Specialty Diagnoses / Procedures Referred By Juany camargo Referred To Contact [facility] [address] [place] [address] Phone: [phone] Emergency Medicine [address] [address] Referral ID Status Reason Start Date Expiration Date Visits Re quested Visits Authorized [id number] Encounter Details Date Type Department Care Team (Late st Contact Info) Description 04/20/2024 3:24 PM EDT - 04/20/2024 7:09 PM EDT Emergency [facility] Emergency Department ([facility]) [address] [place] [id number] Manuel Linton MD [address] [place] [address] [phone] 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 Seek immediate medical attention. https://www.Responsa.com/watch?v=[email or web address] [email or web address] 1 Each 3 04/12/2024 Active documented as of this encounter (statuses as of 04/21/2024) Active Problems Problem Noted Date Diagnosed Date [...] as of this encounter (statuses as of 04/21/2024) Resolved Problems Problem Noted Date Diagnosed Date Resolved Date Aggressive behavior 10/07/2023 10/15/19 24 Psychosis 10/07/2023 10/15/2023 Cellulitis of right leg 07/12/202302/12 Sepsis without acute organ dysfunction 07/12/2023 03/11/2024 Tobacco use disorder 09/03/2015 024 documented as of this encounter (statuses as of 04/21/2024) Immunizations Name Administration Dates Next Due DTaP [...] Sign Reading Time Taken Comments Blood Pressure 104/58 04/20/2024 6:45 PM EDT Pulse 86 04/20/2024 6:45 PM EDT Temperature 35 C (95 F) 04/20/2024 3:19 PM EDT Respiratory Rate 20 04/20/2024 6:45 PM EDT Oxygen Saturation 100% 04/20/2024 3:19 PM EDT Inhaled Oxygen Concentration - - Weight 72.3 kg (159 lb 8 oz) 04/20/2024 3:19 PM EDT Height 170.2 cm (5' 7") 04/20/2024 3:19 PM EDT Body Mass Index 24.98 04/20/2024 3:19 PM EDT documented in this encounter Functional Status [...] No 10/07/2023 documented as of this encounter Discharge Instructions * Discharge Instructions* Dariel Valencia CRNP - 04/20/2024 6:53 PM EDT Please do not use anymore methamphetamines Follow-up with your PCP this week for re-evaluation Inpatient drug rehab may be of some benefit to you If worse in any way your more than welcome to return to the emergency department for evaluation andtreatment. documented in this encounter ED Notes * Lasha Herring RN - 04/20/2024 3:21 PM EDT Pt here with grandmother. Grandmother states that she came home from [place] around 1430 today, and pt was notably shaky and increasingly anxious. Pt comes in and has flat deamor. Clammy/diaphoretic/pale/obvious tremors to the upper and lower extremities. Denies any drug use today. Hx of drug use and abuse in the past. Denies any alcohol intakes today. Reports to this nurse that he feels "anxious"and he is "bupe sick". Grandmother reports that pt is on subutex routinely. Denies any HI/SI. documented in this encounter Miscellaneous Notes * ED New Accounts Banking Representative Note - Erica Mireles RN - 04/20/2024 7:08 PM EDT Pt provided discharge instructions. Pt and grandmother verbalized understanding. Inpatient drug rehab recommended to pt. Pt ambulated out without difficulty. * Pt Handout (on AVS) - Dariel Valencia CRNP - 04/20/2024 6:52 PM EDT Images from the original note were not included. [id number] Understanding Tachycardia The heart has an electrical system that sends signals to control the heartbeat. Any abnormal changein the speed or pattern of the heartbeat is called an arrhythmia. If you have an arrhythmia that causes the heart to beat faster than normal, this is known as tachycardia. There are many types of tachycardia. They can affect the heart?s upper chambers (atria), the heart?s lower chambers (ventricles), or both. What causes tachycardia? Many things can cause tachycardia, including: Damage to heart tissue from heart disease, past heart attack, or heart surgery Abnormal electrical pathways in the heart Problems with the heart?s structure that you are born with (congenital heart defect) High blood pressure Overactive thyroid Use of certain medicines Severe blood loss or anemia Dehydration Severe stress, fear, or anxiety Smoking Too much alcohol or caffeine Abuse of certain street drugs, such as cocaine Infections Certain inflammatory conditions Pain What are the symptoms of tachycardia? If you have tachycardia, you may notice a fast, pounding, or irregular heartbeat. Tachycardia can also make it harder for the heart to pump blood efficiently to the body. This may cause symptoms suchas: Shortness of breath Tiredness Dizziness or fainting Chest pain Some people with tachycardia may have no symptoms at all. How is tachycardia treated? Treatment for tachycardia depends on the cause. It also depends on the type you have and how severeyour symptoms are. Tachycardia in the ventricles is often more serious than in the atria. For this reason, it may need to be treated right away. Possible treatments include: Treating the underlying cause. For instance, if a medicine is causing your tachycardia, changingthe dosage or stopping the medicine with your healthcare provider?s guidance may correct the problem. Lifestyle changes. These include getting enough sleep and reducing stress. They also include avoiding caffeine, alcohol, tobacco, and illegal drugs. Vagal maneuvers. These are techniques that may help interrupt a fast heartbeat and slow it down.One example is to take a deep breath and bear down hard while holding your breath. Medicines. These may be used to help slow down a fast heartbeat. They may also be used to regulate the pattern of the heartbeat. Electrical cardioversion. Special pads or paddles are used to send one or more brief electrical shocks to the heart. This can help restore the heartbeat to normal. Ablation. A long, thin tube called a catheter is inserted into a blood vessel and threaded to the heart. The catheter sends out hot or cold energy to the areas causing abnormal signals. This destroys tissue or cells where the abnormal electrical signal originates. This may stop certain types of tachycardia. Pacemaker. This is a device that is placed just under the skin in the chest. It sends paced signals to make the heart beat at a predetermined rate and rhythm. While it can't slow your heart rate, some people may have both fast and slow heart rates. You may need a pacemaker if medicines used to treat tachycardia result in a heart rate that is too slow. Implantable cardioverter defibrillator (ICD). This is a device that is placed just under the skin in the chest or below the armpit. The ICD monitors your heart rate. When needed, it sends a controlled burst of signals to the heart to overdrive a tachycardia in the ventricles. It can also send a single stronger shock to the heart to stop a life-threatening type of tachycardia, if needed. Surgery. During surgery, different techniques may be used to create scar tissue in the areas of the heart causing abnormal signals. This may help stop certain types of tachycardia. What are possible complications of tachycardia? These can include: Blood clots or stroke Heart failure. With this problem, the heart muscle is so weak it no longer pumps blood well. Fainting Sudden cardiac arrest. This is when the heart suddenly stops beating. When should I call my healthcare provider? Call your healthcare provider right away if you have any of these: Symptoms that don?t get better with treatment, or get worse New symptoms Last Reviewed Date: 08/13/202119998632-5742 The [employer]. All rights reserved. This information is not intended as a substitute for professional medical care. Always follow your healthcare professional's instructions. * Pt Handout (on AVS) - Dariel Valencia CRNP - 04/20/2024 6:52 PM EDT [id number] Drug Abuse Use and abuse of drugs or medicines may lead to addiction or dependence. You may hear drug abuse oraddiction called substance use disorder (CEE). Examples of illegal drugs include amphetamines (alsoknown as speed or crank), methamphetamines (meth), cocaine, heroin, bath salts, and hallucinogens (such as MDMA, ecstasy, PCP, mescaline, and LSD). Xylazine is a sedative and pain reliever approved only for animals. It's not approved or safe for people. It's known by the street name tranq. Xylazine has been found in street drugs, especially heroin and fentanyl. It has been linked to overdoses and . Severe side effects from xylazine include slow heart beat and breathing, low blood pressure, skin sores, and coma. In some states, marijuana is an illegal drug. Medicines include prescription medicines, sedatives, and sleeping pills. Once addiction or dependence happens, you are at greater risk for the problems below. Social and personal problems Craving for the drug and not being able to stop using even though you think you want to stop (psychological addiction) Drug withdrawal symptoms if you stop taking the drug (physical dependence) Loss of friends and family School or work problems Arrest, conviction, and long-term sentence for possession of an illegal substance or for driving under the influence Health problems Stroke, heart attack, heart failure, and kidney failure Accidental injuries to yourself or others while you are under the influence of a drug (in a car or at home) HIV infection. This is a much greater risk if you use IV drugs. Skin infections Other sexually transmitted infections (STIs), such as herpes, chlamydia, and gonorrhea Severe and fatal infection of the heart valves if you use IV drugs Hepatitis B or C Dementia, mood disorders, persistent hallucinations (particularly with hallucinogens) Dental problems from methamphetamine abuse from overdose Home care The following suggestions can help you care for yourself at home: Admit you have a drug problem. Ask for help from your family and close friends. Seek professional help. This could be one-on-one therapy or counseling. There are also outpatient, inpatient, and residential drug treatment programs. Join a self-help group for drug abuse. Stay away from friends who abuse drugs or tempt you to continue abusing drugs. Eat a balanced diet and start a regular exercise program. Follow-up care Follow up with your healthcare provider, or as advised. Contact 1 of the resources below for help: Substance Abuse and Mental Health Services Administration (SAMHSA) at www.samhsa.gov/findtreatment National [place] on Alcoholism and Drug Dependence at www.ncadd.org Narcotics Anonymous at www.na.org Call 911 Call 911 right away if any of these occur: Seizure Hard time breathing or slow, irregular breathing Chest pain Sudden weakness on 1 side of your body or sudden trouble speaking Very drowsy or trouble waking up Fainting or loss of consciousness Fast heart rate Very slow heart rate When to get medical care Call your healthcare provider if any of these occur: Agitation, anxiety, or unable to sleep Unintended weight loss. This means more than 10 to 15 pounds over 3 months. Fever of 100.4F (38C) or higher, or as advised by your provider Shortness of breath Cough with colored sputum Redness, swelling, or tenderness at an injection site You think counseling or drug rehabilitation services are needed to prevent additional drug use Last Reviewed Date: 05/13/202219999835-2838 [employer]. All rights reserved. This information is not intended as a substitute for professional medical care. Always follow your healthcare professional's instructions. * ED New Accounts Banking Representative Note - Erica Mireles RN - 04/20/2024 3:45 PM EDT Pt states he doesn't know what happened or when it started. Pt states he is anxious. HR noted in triage to be 194. HR currently 125. Pt having severe upper body tremors, severe diaphoresis. Pt stateshe has been sober for 2 days. Drug of choice is meth. Pt denies any drug use today. Several attempts made by Lasha SHAW and Gonzalo Valencia CUSTOMER ENGAGEMENT MANAGER for IV access, IV team contacted. 1558: 2mg IM ativan administered. 1600: IV team attempt at access successful. Pt hr 174, Pt still very anxious, unable to calm or redirect. 1618: IV ativan administered. 1630: Pt HR 121, pt requesting to eat and drink at this time, reports feeling much better 1642: Pt comfortable,sleeping at this time. Mom at bedside. documented in this encounter Plan of Treatment Upcoming Encounters Date Type Department Care Team (Late st Contact Info) Description 05/07/2024 2:10 PM EDT Office Visit Optometry, [place] [address] Barry Hart, Greg Melton OD [address] [place] [address] 06/18/2024 10:00 AM EST Office Visit Cardiology, [place] [address] [facility] [place] [address] Rianna Batista MD [address] [facility] [place] [address] 08/05/2024 2:40 PM EST Office Visit Family Practice, [place] [address] [facility] [place] [phone] Stacy Hopson CRNP [address] [place] [address] Pending Results Name Type Priority Associated Diagnoses Date /Time AMPHETAMINES, URINE CONFIRMATION Lab Routine 04/20/2024 6:15 PM EDT BENZODIAZEPINES, URINE CONFIRMATION Lab Routine 04/20/2024 6:15 PM EDT THC METABOLITE, URINE CONFIRMATION Lab Routine 04/20/2024 6:15 PM EDT Scheduled Orders Name Type Priority Associated Diagnoses Orde r Schedule AMPHETAMINES, URINE CONFIRMATION Lab Routine One Time for 1 Occurrences starting 04/20/2024 until 04/20/2024 BENZODIAZEPINES, URINE CONFIRMATION Lab Routine One Time for 1 Occurrences starting 04/20/2024 until 04/20/2024 THC METABOLITE, URINE CONFIRMATION Lab Routine One Time for 1 Occurrences starting 04/20/2024 until 04/20/2024 Health Maintenance Due Date Last Done Comments DISCUSS TOBACCO CESSATION (R EFER TO SMARTSET #2223) 1999 Pneumococcal Vaccine: Pediat rics (0 to 5 Years) and At-Risk Patients (6 to 64 Years) (1 of 2 - PCV) 2005 HPV (Gardasil) Vaccine (2 - Male 2-dose series) 07/06/2011 01/03/2011 DTap/Tdap Vaccines (7 - Td o r Tdap) 01/03/2021 01/03/2011, 03/28/2005, 10/24/2000, Additional history exists *SPIROMETRY ONCE FOR ASTHMA-ADULT 04/06/2024 COVID-19 Vaccine (1 - 2023-2 4 season) 2024 Influenza Vaccine (FLU shot) (#1) 2024 009 Depression Monitoring 10/14/2024 10/15/2023 Hepatitis B Vaccine Completed 01/19/2000, 1999, 1999 MENINGOCOCCAL (MENACTRA/MENVEO) Completed 11/14/2016, 09/03/2015, 01/03/2011 documented as of this encounter Medical Devices Not on filedocumented as of this encounter Procedures Procedure Name Priority Date/Time Associated Diagnosis Comments TOXICOLOGY, URINESCREEN W/ CONFIRMATION Routine 04/20/2024 6:15 PM EDT URINALYSIS WITH MICROSCOPIC EXAM STAT 04/20/2024 6:15 PM EDT LACTATE Routine 04/20/2024 5:24 PM EDT TROPONIN T, HIGH SENSITIVITY Add-on 04/20/2024 5:00 PM EDT CK Routine 04/20/2024 5:00 PM EDT RESPIRATORY PATHOGEN PANEL, PCR STAT 04/20/2024 4:27 PM EDT XR CHEST 1 VIEW STAT 04/20/2024 4:23 PM EDT TSH WITH FREE T4 IF INDICATED Routine 04/20/2024 3:44 PM EDT LACTATE Routine 04/20/2024 3:44 PM EDT DIFFERENTIAL, AUTOMATED STAT 04/20/2024 3:31 PM EDT TROPONIN T, HIGH SENSITIVITY STAT 04/20/2024 3:31 PM EDT COMPREHENSIVE METABOLIC PANEL STAT 04/20/2024 3:31 PM EDT CBC STAT 04/20/2024 3:31 PM EDT CBC STAT 04/20/2024 3:31 PM EDT GLUCOSE METER, POINT OF CARE BLADIMIR 04/20/2024 3:19 PM EDT documented in this encounter Results * (ABNORMAL) TOXICOLOGY, URINESCREEN W/ CONFIRMATION (04/20/2024 6:15 PM EDT) [facility] Amphetamines Screen, U Positive(A) Negative 04/20/2024 7:35 PM EDT LABORATORY GL Benzodiazepines Screen, U Positive(A) Negative 04/20/2024 7:35 PM EDT LABORATORY [facility] Cannabinoids Screen, U Positive(A) Negative 04/20/2024 7:35 PM EDT LABORATORY GL Cocaine Metabolite Screen, U Negative Negative 04/20/2024 7:35 PM EDT LABORATORY GL Fentanyl Screen, U Negative Negative 2023 7:35 PM EDT LABORATORY GL Hydrocodone Screen, U Negative Negative 04/20/2024 7:35 PM EDT LABORATORY GL Methadone Metabolite Screen, U Negative Negative 04/20/2024 7:35 PM EDT LABORATORY GL Morphine/Codeine Screen, U Negative Negative 04/20/2024 7:35 PM EDT LABORATORY [facility] Oxycodone Screen, U Negative Negative 04/20/2024 7:35 PM EDT LABORATORY GL Urine Urine specimen obtained by clean catch procedure / Unknown Non-blood Collection / Unknown 04/20/2024 6:15 PM EDT 04/20/2024 6:21 PM EDT Narrative LABORATORY GL - 04/20/2024 7:35 PM EDT Cutoff Concentrations: Drug Level Amphetamines 500 ng/mL Benzodiazepines 100 ng/mL Cannabinoids 50 ng/mL Cocaine Metabolite 150 ng/mL Fentanyl 1 ng/mL Hydrocodone / Hydromorphone 300 ng/mL Methadone Metabolite 100 ng/mL Morphine / Codeine 300 ng/mL Oxycodone / Oxymorphone 100 ng/mL Screening results are presumptive and can only be used for medical purposes. Positive screening results are reflexed to confirmatory testing. Dariel Randall [employer] HANGING FLAGS DECORATOR LAB URINE ORDERABL ES LABORATORY [facility] [address] [place] [address] * (ABNORMAL) URINALYSIS WITH MICROSCOPIC EXAM (04/20/2024 6:15 PM EDT) Color, Urine Yellow Light Yellow, Yellow, Dark Yellow 04/20/2024 7:03 PM EDT LABORATORY [facility] Clarity, Urine Clear Clear 04/20/2024 7:03 PM EDT LABORATORY [facility] Glucose, Urine Negative Negative mg/dL 04/20/2024 7:03 PM EDT LABORATORY GL Bilirubin, Urine Negative Negative 04/20/2024 7:03 PM EDT LABORATORY [facility] Ketone, Urine Trace(A) Negative mg/dL 04/20/2024 7:03 PM EDT LABORATORY [facility] Specific Delta, Urine 1.025 1.003 - 1.030 04/20/2024 7:03 PM EDT LABORATORY [facility] Blood, Urine Negative Negative 04/20/2024 7:03 PM EDT LABORATORY [facility] pH, Urine 6.0 5.0 - 7.5 Units 04/20/2024 7:03 PM EDT LABORATORY GL Protein, Urine Negative Negative mg/dL 04/20/2024 7:03 PM EDT LABORATORY [facility] Urobilinogen, Urine 0.2 0.2, 1.0 mg/dL 04/20/2024 7:03 PM EDT LABORATORY [facility] Nitrite, Urine Negative Negative 04/20/2024 7:03 PM EDT LABORATORY [facility] Esterase, Urine Negative Negative 04/20/2024 7:03 PM EDT LABORATORY [facility] RBC, Urine 0-2 0 - 2 /HPF 04/20/2024 7:03 PM EDT LABORATORY GL WBC, Urine 0-2 0 - 2 /HPF 04/20/2024 7:03 PM EDT LABORATORY GL Bacteria, Urine 0-25 0 - 25 /HPF 04/20/2024 7:03 PM EDT LABORATORY GL Mucus, Urine Many(A) None /HPF 04/20/2024 7:03 PM EDT LABORATORY GL Amorphous Crystals, Urine Many(A) None /HPF 04/20/2024 7:03 PM EDT LABORATORY [facility] Urine Urine specimen obtained by clean catch procedure / Unknown Non-blood Collection / Unknown 04/20/2024 6:15 PM EDT 04/20/2024 6:21 PM EDT Dariel HUGHESNP LAB URINE ORDERABL ES Performing Organization Address [facility]/ZIP Co de Phone Number LABORATORY [address] [address] * LACTATE (04/20/2024 5:24 PM EDT) Lactate 1.2 0.4 - 2.0 mmol/L 04/20/2024 6:07 PM EDT LABORATORY [facility] Blood Venous blood specimen / Unknown Venipuncture / Unknown 04/20/2024 5:24 PM EDT 04/20/2024 5:29 PM EDT Dariel HUGHESNP LAB BLOOD ORDERABL ES Performing Organization Address [facility] Co de Phone Number LABORATORY [address] [address] * TROPONIN T, HIGH SENSITIVITY (04/20/2024 5:00 PM EDT) Troponin T, High Sensitivity <6 <=22 ng/L 04/20/2024 6:01 PM EDT LABORATORY [facility] Blood Venous blood specimen / Unknown Venipuncture / Unknown 04/20/2024 5:00 PM EDT 04/20/2024 5:03 PM EDT [facility] BLOOD ORDERABL ES Performing Organization Address City/[facility] Co de Phone Number LABORATORY [address] [address] * CK (04/20/2024 5:00 PM EDT) CK 125 39 - 308 U/L 04/20/2024 5:34 PM EDT LABORATORY [facility] Blood Venous blood specimen / Unknown Venipuncture / Unknown 04/20/2024 5:00 PM EDT 04/20/2024 5:03 PM EDT Len Singer MD LAB BLOOD ORDER KRISTOFER LABORATORY [facility] [address] [place] [address] * RESPIRATORY PATHOGEN PANEL, PCR (04/20/2024 4:27 PM EDT) Adenovirus by PCR Negative Negative 024 6:15 PM EDT LABORATORY [facility] Coronavirus 229E by PCR Negative Negative 04/20/2024 6:15 PM EDT LABORATORY [facility] Coronavirus HKU1 by PCR Negative Negative 04/20/2024 6:15 PM EDT LABORATORY [facility] Coronavirus NL63 by PCR Negative Negative 04/20/2024 6:15 PM EDT LABORATORY [facility] Coronavirus OC43 by PCR Negative Negative 04/20/2024 6:15 PM EDT LABORATORY [facility] Coronavirus SARS-CoV-2 by PCR Negative Negative 04/20/2024 6:15 PM EDT LABORATORY [facility] Human Metapneumovirus by PCR Negative Negative 04/20/2024 6:15 PM EDT LABORATORY [facility] Rhinovirus/Enterovi cheryl by PCR Negative Negative 04/20/2024 6:15 PM EDT LABORATORY [facility] Influenza A Virus by PCR Negative Negative 04/20/2024 6:15 PM EDT LABORATORY [facility] Influenza B Virus by PCR Negative Negative 04/20/2024 6:15 PM EDT LABORATORY [facility] Parainfluenza Virus 1 by PCR Negative Negative 04/20/2024 6:15 PM EDT LABORATORY [facility] Parainfluenza Virus 2 by PCR Negative Negative 04/20/2024 6:15 PM EDT LABORATORY [facility] Parainfluenza Virus 3 by PCR Negative Negative 04/20/2024 6:15 PM EDT LABORATORY [facility] Parainfluenza Virus 4 by PCR Negative Negative 04/20/2024 6:15 PM EDT LABORATORY [facility] Respiratory Syncytial Virus by PCR Negative Negative 04/20/2024 6:15 PM EDT LABORATORY [facility] Bordetella pertussis by PCR Negative Negative 04/20/2024 6:15 PM EDT LABORATORY [facility] Chlamydia pneumoniae by PCR Negative Negative 04/20/2024 6:15 PM EDT LABORATORY [facility] Mycoplasma pneumoniae by PCR Negative Negative 04/20/2024 6:15 PM EDT LABORATORY [facility] Bordetella parapertussis by PCR Negative Negative 04/20/2024 6:15 PM EDT LABORATORY [facility] Comment: The primers that detect Rhinovirus may cross react with some Enterorviruses. The validation of bronchial specimens, tracheal aspirates, and throats for this assay was developed and performance characteristics determined by [employer]. The validation of alternate specimen types has not been cleared or approved by the U.S. Food and Drug Administration (FDA). It has been determined that such clearance or approval is not necessary. Upper Respiratory Mid-turbinate nasal swab / Unknown Non-blood Collection / Unknown 04/20/2024 4:27 PM EDT 04/20/2024 4:37 PM EDT Dariel Randall HUGHESNP LAB MICRO - GENERA L ORDERABLES Performing Organization Address City/State/[facility] Co de Phone Number LABORATORY [address] [address] * XR CHEST 1 VIEW (04/20/2024 4:23 PM EDT) Anatomical Region Laterality Modality Chest Digital Radiogra phy 04/20/2024 4:14 PM EDT Impressions 04/20/2024 5:05 PM EDT IMPRESSION: No focal consolidation. THIS DOCUMENT HAS BEEN ELECTRONICALLY SIGNED BY ELMER INTERIANO MD Narrative 04/20/2024 5:05 PM EDT PROCEDURE INFORMATION: Exam: XR Chest Exam date and time: 04/20/2024 4:14 PM Age: 23 years old Clinical indication: Other: Tachycardia TECHNIQUE: Imaging protocol: Radiologic exam of the chest. Views: 1 view. COMPARISON: DX XR CHEST 1 VIEW 04/12/2024 4:53 PM FINDINGS: Lungs: No definite air bronchograms identified. Pleural spaces: Unremarkable. No pleural effusion. No pneumothorax. Heart/Mediastinum: Unremarkable. No cardiomegaly. Bones/joints: Unremarkable. Procedure Note Elmer Interiano MD - 04/20/2024 PROCEDURE INFORMATION: Exam: XR Chest Exam date and time: 04/20/2024 4:14 PM Age: 23 years old Clinical indication: Other: Tachycardia TECHNIQUE: Imaging protocol: Radiologic exam of the chest. Views: 1 view. COMPARISON: DX XR CHEST 1 VIEW 04/12/2024 4:53 PM FINDINGS: Lungs: No definite air bronchograms identified. Pleural spaces: Unremarkable. No pleural effusion. No pneumothorax. Heart/Mediastinum: Unremarkable. No cardiomegaly. Bones/joints: Unremarkable. IMPRESSION IMPRESSION: No focal consolidation. THIS DOCUMENT HAS BEEN ELECTRONICALLY SIGNED BY ELMER INTERIANO MD Dariel FIGUEROA RADIOLOGY (RAD GEN ERAL) * (ABNORMAL) LACTATE (04/20/2024 3:44 PM EDT) Lactate 3.9(H) 0.4 - 2.0 mmol/L 04/20/2024 4:24 PM EDT LABORATORY [facility] Blood Venous blood specimen / Unknown Venipuncture / Unknown 04/20/2024 3:44 PM EDT 04/20/2024 3:47 PM EDT Dariel FIGUEROA LAB BLOOD ORDERABL ES Performing Organization Address [facility] Co de Phone Number LABORATORY [address] [address] * TSH WITH FREE T4 IF INDICATED (04/20/2024 3:44 PM EDT) TSH 0.67 0.27 - 4.20 uIU/mL 04/20/2024 4:36 PM EDT LABORATORY [facility] Blood Venous blood specimen / Unknown Venipuncture / Unknown 04/20/2024 3:44 PM EDT 04/20/2024 3:47 PM EDT Candice White PA-C LAB BLOOD ORDER KRISTOFER Performing Organization Address City/[facility] Co de Phone Number LABORATORY [address] [address] * (ABNORMAL) DIFFERENTIAL, AUTOMATED (04/20/2024 3:31 PM EDT) [facility] WBC 13.79(H) 4.00 - 10.80 K/uL 04/20/2024 3:38 PM EDT LABORATORY [facility] Neutrophils % 81.2(H) 40.0 - 75.0 % 04/20/2024 3:38 PM EDT LABORATORY [facility] Lymphocytes % 13.9(L) 18.0 - 42.0 % 04/20/2024 3:38 PM EDT LABORATORY [facility] Monocytes % 3.1 1.0 - 11.0 % 04/20/2024 3:38 PM EDT LABORATORY [facility] Eosinophils % 1.0 0.0 - 6.0 % 04/20/2024 3:38 PM EDT LABORATORY [facility] Basophils % 0.4 0.0 - 2.0 % 04/20/2024 3:38 PM EDT LABORATORY [facility] Immature Granulocytes % 0.4 0.0 - 2.0 % 04/20/2024 3:38 PM EDT LABORATORY [facility] Absolute Neutrophils 11.20(H) 1.80 - 7.70 K/uL 04/20/2024 3:38 PM EDT LABORATORY [facility] Absolute Lymphocytes 1.91 1.00 - 4.80 K/ul 04/20/2024 3:38 PM EDT LABORATORY [facility] Absolute Monocytes 0.43 0.00 - 1.10 K/uL 04/20/2024 3:38 PM EDT LABORATORY [facility] Absolute Eosinophils 0.14 0.00 - 0.70 K/uL 04/20/2024 3:38 PM EDT LABORATORY [facility] Absolute Basophils 0.06 0.00 - 0.20 K/uL 04/20/2024 3:38 PM EDT LABORATORY [facility] Absolute Immature Granulocytes 0.05 0.00 - 0.20 K/uL 04/20/2024 3:38 PM EDT LABORATORY [facility] Blood Venous blood specimen / Unknown Venipuncture / Unknown 04/20/2024 3:31 PM EDT 04/20/2024 3:35 PM EDT Dariel FIGUEROA LAB BLOOD ORDERABL ES LABORATORY [facility] [address] [place] [address] * (ABNORMAL) CBC (04/20/2024 3:31 PM EDT) WBC 13.79(H) 4.00 - 10.80 K/uL 04/20/2024 3:38 PM EDT LABORATORY [facility] RBC 5.40 4.50 - 5.25 M/uL 04/20/2024 3:38 PM EDT LABORATORY [facility] HGB 16.5 14.0 - 16.8 g/dL 04/20/2024 3:38 PM EDT LABORATORY [facility] HCT 48.5(H) 40.0 - 48.4 % 04/20/2024 3:38 PM EDT LABORATORY [facility] MCV 89.8 82.0 - 99.5 fL 04/20/2024 3:38 PM EDT LABORATORY [facility] MCH 30.6 27.0 - 34.0 pg 04/20/2024 3:38 PM EDT LABORATORY [facility] MCHC 34.0 32.0 - 36.0 g/dL 04/20/2024 3:38 PM EDT LABORATORY [facility] RDW 13.2 11.5 - 15.5 % 04/20/2024 3:38 PM EDT LABORATORY [facility] PLT 295 140 - 400 K/uL 04/20/2024 3:38 PM EDT LABORATORY [facility] MPV 9.9 6.6 - 11.1 fL 04/20/2024 3:38 PM EDT LABORATORY [facility] nRBCs 0 <=0 /100 WBCs 04/20/2024 3:38 PM EDT LABORATORY [facility] Blood Venous blood specimen / Unknown Venipuncture / Unknown 04/20/2024 3:31 PM EDT 04/20/2024 3:35 PM EDT Dariel FIGUEROA LAB BLOOD ORDERABL ES LABORATORY [address] [place] [address] * TROPONIN T, HIGH SENSITIVITY (04/20/2024 3:31 PM EDT) Troponin T, High Sensitivity <6 <=22 ng/L 04/20/2024 3:53 PM EDT LABORATORY [facility] Comment:Result may be falsel y decreased due to hemolysis. Blood Venous blood specimen / Unknown Venipuncture / Unknown 04/20/2024 3:31 PM EDT 04/20/2024 3:35 PM EDT Dariel Valencia HANGING FLAGS DECORATOR LAB BLOOD ORDERABL ES LABORATORY [facility] [address] [place] [address] * (ABNORMAL) COMPREHENSIVE METABOLIC PANEL (04/20/2024 3:31 PM EDT) BUN 24(H) 6 - 20 mg/dL 04/20/2024 4:14 PM EDT LABORATORY [facility] Creatinine 0.8 0.6 - 1.2 mg/dL 04/20/2024 4:14 PM EDT LABORATORY [facility] Estimated Glomerular Filtration Rate >90 >=60 mL/min 04/20/2024 4:14 PM EDT LABORATORY [facility] Comment:eGFR is calculated b ased on the CKD-EPI 2020 equation. Sodium 138 135 - 146 mmol/L 04/20/2024 4:14 PM EDT LABORATORY [facility] Potassium 04/20/2024 4:14 PM EDT LABORATORY [facility] Comment:Specimen too hemolyz ed. Reorder if needed. Chloride 104 98 - 107 mmol/L 04/20/2024 4:14 PM EDT LABORATORY [facility] CO2 19(L) 22 - 32 mmol/L 04/20/2024 4:14 PM EDT LABORATORY [facility] Anion Gap 15 7 - 15 mmol/L 04/20/2024 4:14 PM EDT LABORATORY [facility] Glucose 117 70 - 120 mg/dL 04/20/2024 4:14 PM EDT LABORATORY [facility] Albumin 4.7 3.8 - 5.0 g/dL 04/20/2024 4:14 PM EDT LABORATORY [facility] AST 04/20/2024 4:14 PM EDT LABORATORY [facility] Comment:Specimen too hemolyz ed. Reorder if needed. Alkaline Phosphatase 90 35 - 130 U/L 04/20/2024 4:14 PM EDT LABORATORY [facility] Comment:Results may be false ly elevated due to hemolysis. Bilirubin, Total 0.4 <=1.2 mg/dL 04/20/2024 4:14 PM EDT LABORATORY [facility] Calcium 9.8 8.4 - 10.2 mg/dL 04/20/2024 4:14 PM EDT LABORATORY [facility] Protein 8.5(H) 6.0 - 8.3 g/dL 04/20/2024 4:14 PM EDT LABORATORY [facility] ALT 21 10 - 50 U/L 04/20/2024 4:14 PM EDT LABORATORY [facility] Comment:Results may be false ly elevated due to hemolysis. Blood Venous blood specimen / Unknown Venipuncture / Unknown 04/20/2024 3:31 PM EDT 04/20/2024 3:35 PM EDT Dariel FIGUEROA LAB BLOOD ORDERABL ES Performing Organization Address [facility] Co de Phone Number LABORATORY [facility] [address] [place] [address] * GLUCOSE METER, POINT OF CARE (04/20/2024 3:19 PM EDT) [facility] Glucose Meter 120 70 - 120 mg/dL 04/20/2024 3:22 PM EDT [facility] LABORAT[facility] Blood Whole blood specimen / Unknown 04/20/2024 3:19 PM EDT 04/20/2024 3:22 PM EDT No Physician Data Unknown LAB POINT OF C ARE TEST DOCKED DEVICE UNSOLICITED RESULTS Performing Organization Address [facility] Co de Phone Number [facility] LABORATORY [address] [place] [address] documented in this encounter Visit Diagnoses Diagnosis Withdrawal from other stimulant drug (HCC)- Primary Tachycardia Tachycardia, unspecified documented in this encounter Administered Medications Inactive Administered Medications - up to 3 most recent administrations Medication Order MAR Action Action Date Dose Rate Site LORazepam (Ativan) inj 1 mg 1 mg, IV Push, ONCE, On 04/20/24 at 1645, For 1 dose, MUST FURTHER DILUTE FOR IV PUSH WITH EQUAL VOLUME OF NSS Given 04/20/2024 4:18 PM EDT 1 mg LORazepam (Ativan) inj 2 mg 2 mg, Intramuscular, ONCE, On 04/20/24 at 1630, For 1 dose, MUST FURTHER DILUTE FOR IV PUSH WITH EQUAL VOLUME OF NSS Given 04/20/2024 3:58 PM EDT 2 mg Deltoid Right Upper NSS 0.9% 1,000 mL bolus infusion Intravenous, at 1,000 mL/hr Administer over 60 Minutes, Administer entire volume within 60 minutes or less., ONCE, 1 dose, On 04/20/24 at 1600 New Bag 04/20/2024 4:28 PM EDT 1,000 mL 1000 mL/hr NSS 0.9% 1,000 mL bolus infusion Intravenous, at 1,000 mL/hr Administer over 60 Minutes, Administer entire volume within 60 minutes or less., ONCE, 1 dose, On Sun04/20/24 at 1645 New Bag 04/20/2024 4:03 PM EDT 1,000 mL 1000 mL/hr documented in this encounter Active and Recently Administered Medications Times are shown in EDT. Scheduled Medication Order 04/18/2024 04/19/2024 04/20/2024 LORazepam (Ativan) inj 1 mg (COMPLETED) 1 mg, IV Push, ONCE, On 04/20/24 at 1645, For 1 dose, MUST FURTHER DILUTE FOR IV PUSH WITH EQUAL VOLUME OF NSS 1618 (Given - Provid er: Erica Mireles RN) LORazepam (Ativan) inj 2 mg (COMPLETED) 2 mg, Intramuscular, ONCE, On 04/20/24 at 1630, For 1 dose, MUST FURTHER DILUTE FOR IV PUSH WITH EQUAL VOLUME OF NSS 1558 (Given - Provid er: Erica Mireles RN) NSS 0.9% 1,000 mL bolus infusion (COMPLETED) Intravenous, at 1,000 mL/hr Administer over 60 Minutes, Administer entire volume within 60 minutes or less., ONCE, 1 dose, On Sun04/20/24 at 1600 1628 (New Bag - Prov ider: Erica Mireles RN)1851 (Stopped - Provider: Erica Mireles RN) NSS 0.9% 1,000 mL bolus infusion (COMPLETED) Intravenous, at 1,000 mL/hr Administer over 60 Minutes, Administer entire volume within 60 minutes or less., ONCE, 1 dose, On Sun04/20/24 at 1645 1603 (New Bag - Prov ider: Erica Mireles RN)1851 (Stopped - Provider: Erica Mireles RN) documented in this encounter Additional Health Concerns Infection Onset Date Last Indicated Resolved Time Respiratory Rule-Out 04/20/2024 04/20/2024 024 6:15 PM EDT COVID-19 Rule-Out 04/20/2024 04/20/2024 04/20/2024 6:15 PM EDT documented as of this encounter Advance Directives * [...] and were consensually agreed upon. Care Teams Insurance And Financial Services Agent Relationship Specialty Start Date End Date Mulugeta Arnett MD [address] [address] PCP - General Family Medicine 07/16/23 documented as of this encounter
--- OUTSIDE RECORDS SUMMARY | 2024-06-18 10:35 | External Medical Summary ---
Author Name Unknown Address Unknown Organization K1F:LABORATORY [facility] - [address] [facility] [place] [address] Laboratory Report Ordering Provider Test Date Status ONESIMO MÉNDEZ 06/05/2024 00:32:00 Final Observation Date Value Abnormality Reference (Units ) Status SYNC LEUKOCYTES IN BLOOD BY AUTOMATED COUNT 06/05/2024 00:32:00 8.42 4.00-10.80 (K/uL) Final Segs 06/05/2024 00:32:00 77.9 Above high normal 40.0-75.0 (%) Final Lymphs % 06/05/2024 00:32:00 14.0 Below low normal 18.0-42.0 (%) Final Monos 06/05/2024 00:32:00 4.6 1.0-11.0 (%) Final Eosinophils 06/05/2024 00:32:00 2.3 0.0-6.0 (%) Final Basos 06/05/2024 00:32:00 0.5 0.0-2.0 (%) Final Immature Granulocyte, Percent 06/05/2024 00:32:00 0.7 0.0-2.0 (%) Final Absolute Segs 06/05/2024 00:32:00 6.56 1.80-7.70 (K/uL) Final Lymphs, absolute 06/05/2024 00:32:00 1.18 1.00-4.80 (K/ul) Final Monos, Abs 06/05/2024 00:32:00 0.39 0.00-1.10 (K/uL) Final Eos, Abs 06/05/2024 00:32:00 0.19 0.00-0.70 (K/uL) Final Basos, Abs 06/05/2024 00:32:00 0.04 0.00-0.20 (K/uL) Final Immature Granulocytes, Number 06/05/2024 00:32:00 0.06 0.00-0.20 (K/uL) Final Performing Location LABORATORY [facility] - [address] [place] [address]
--- OUTSIDE RECORDS SUMMARY | 2024-06-18 10:35 | External Medical Summary ---
Author Name Unknown Address Unknown Organization K1F:LABORATORY [facility] - [address] [place] [address] Laboratory Report Ordering Provider Test Date Status ONESIMO MÉNDEZ 06/05/2024 00:32:00 Final Observation Date Value Abnormality Reference (Units ) Status WBC, Total 06/05/2024 00:32:00 8.42 4.00-10.80 (K/uL) Final RBC 06/05/2024 00:32:00 4.46 4.50-5.25 (M/uL) Final Hemoglobin 06/05/2024 00:32:00 13.6 Below low normal 14.0-16.8 (g/dL) Final HCT 06/05/2024 00:32:00 39.2 Below low normal 40.0-48.4 (%) Final MCV 06/05/2024 00:32:00 87.9 82.0-99.5 (fL) Final MCH 06/05/2024 00:32:00 30.5 27.0-34.0 (pg) Final MCHC 06/05/2024 00:32:00 34.7 32.0-36.0 (g/dL) Final RDW 06/05/2024 00:32:00 13.2 11.5-15.5 (%) Final Platelets 06/05/2024 00:32:00 199 140-400 (K/uL) Final MPV 06/05/2024 00:32:00 9.2 6.6-11.1 (fL) Final Nucleated erythrocytes/100 leukocytes [Ratio] in Blood by Automated count 06/05/2024 00:32:00 0 <=0 (/100 WBCs) Final Performing Location LABORATORY [facility] - [address] [place] [address]
--- OUTSIDE RECORDS SUMMARY | 2024-06-18 10:35 | External Medical Summary ---
Author Name Unknown Address Unknown Organization K1F:LABORATORY [facility] - [address] [place] [address] Laboratory Report Ordering Provider Test Date Status ONESIMO MÉNDEZ 06/05/2024 00:32:00 Final Observation Date Value Abnormality Reference (Units ) Status BUN 06/05/2024 00:32:00 17 6-20 (mg/dL) Final Creatinine 06/05/2024 00:32:00 1.0 0.6-1.2 (mg/dL) Final Glomerular filtration rate/1.73 sq M.predicted [Volume Rate/Area] in Serum, Plasma or Blood by Creatinine-based formula (CKD-EPI) 06/05/2024 00:32:00 >90 >=60 (mL/min) Final eGFR is calculated based on the CKD-EPI 2020 equation. Sodium 06/05/2024 00:32:00 136 135-146 (m mol/L) Final Potassium 06/05/2024 00:32:00 3.5 3.5-5.1 (m mol/L) Final Cl 06/05/2024 00:32:00 101 98-107 (mm ol/L) Final CO2 06/05/2024 00:32:00 23 22-32 (mmo l/L) Final Anion gap 06/05/2024 00:32:00 12 7-15 (mmol /L) Final Glucose 06/05/2024 00:32:00 116 70-120 (mg /dL) Final Albumin 06/05/2024 00:32:00 4.0 3.8-5.0 (g /dL) Final AST (Aspartate aminotransferase) 06/05/2024 00:32:00 17 10-50 (U/L) Final Alk Phos 06/05/2024 00:32:00 78 35-130 (U/ L) Final Bilirubin, Total 06/05/2024 00:32:00 <0.2 <=1 .2 (mg/dL) Final Calcium 06/05/2024 00:32:00 8.8 8.4-10.2 ( mg/dL) Final Protein 06/05/2024 00:32:00 6.4 6.0-8.3 (g /dL) Final ALT (Alanine aminotransferase) 06/05/2024 00:32:00 13 10-50 (U/L) Final Performing Location LABORATORY [facility] - [facility] [address] [place] [address]
--- OUTSIDE RECORDS SUMMARY | 2024-06-18 10:35 | External Medical Summary ---
Author Name Unknown Address Unknown Organization K1F:LABORATORY [facility] - [address] [place] [address] Laboratory Report Ordering Provider Test Date Status ONESIMO MÉNDEZ 06/05/2024 00:32:00 Final Observation Date Value Abnormality Reference (Units ) Status Salicylates 06/05/2024 00:32:00 <1.0 Below low normal 5 .0-30.0 (mg/dL) Final Performing Location LABORATORY [facility] - [address] [place] [address]
--- OUTSIDE RECORDS SUMMARY | 2024-06-18 10:35 | External Medical Summary | Summary of Care ---
Author Name Unknown Organization [facility] Address [address] [place] [address] Phone [phone] Care Team Providers Care Public Relations Senior Associate Name Role Phone Mulugeta Arnett MD Primary Care Provider Reason for Visit * Reason Onset Date Comments No Show 04/22/2024 [facility] No Show Auto mation Encounter Details Date Type Department Care Team ([facility] st Contact Info) Description 04/22/2024 Telephone [facility] [address] [place] [address] Mulugeta Arnett MD [address] [place], [place] [id number] No Show ([place] No Show Automation) Allergies No known active allergiesdocumented as of this encounter (statuses as of 04/22/2024) Medications Medication Sig Dispensed Refills Start Date [...] suspected opioid overdose. Seek immediate medical attention. [email or web address] 1 Each 3 04/12/2024 Active documented as of this encounter (statuses as of 04/22/2024) Active Problems Problem Noted Date Diagnosed Date [...] as of this encounter (statuses as of 04/22/2024) Resolved Problems Problem Noted Date Diagnosed Date Resolved Date Aggressive behavior 10/07/2023 10/15/19 24 Psychosis 10/07/2023 10/15/2023 Cellulitis of right leg 07/12/2023 07/ Sepsis without acute organ dysfunction 07/12/2023 03/11/2024 Tobacco use disorder 09/03/2015 024 documented as of this encounter (statuses as of 04/22/2024) Immunizations Name Administration Dates Next Due DTaP [...] encounter Miscellaneous Notes * Telephone Encounter - [facility], No Show - 04/22/2024 8:29 AM EDT Dear Luis Toro, Looks like you missed an appointment with MULUGETA ARNETT on 04/18/2024 at 08:40 AM. If you haven't already rescheduled, you have a couple of options: Reschedule in [employer]/scheduling Call us at [phone] Can't make a future appointment? Cancel and let someone else have your spot! It's easy to do via [employer] or by calling us. Thanks for trusting [facility] with your care. We hope to see you back in our office soon. Sincerely, MULUGETA ARNETT documented in this encounter Plan of Treatment Upcoming Encounters Date Type Department Care Team (Late st Contact Info) Description 04/23/2024 8:20 AM EDT Office Visit [facility] [address]ony [address] [address] Mulugeta Arnett MD [address] [place] [address] 05/07/2024 2:10 PM EDT Office Visit Optometry, [place] [address] [place] [address] Greg Reddy Jr., OD [address] [place] [address] 06/18/2024 10:00 AM EST Office Visit Cardiology, [place] [address] [place] [address] Rianna Batista MD [address] [place] [address] 08/05/2024 2:40 PM EST Office Visit Family Practice, [place] [address] [place] [address] Stacy Hopson CRNP [address] [place] [address] Health Maintenance Due Date Last Done Comments DISCUSS TOBACCO CESSATION (Michelle COTE TO SMARTSET #[id number]) 1999 Pneumococcal Vaccine: Pediat rics (0 to [...] and were consensually agreed upon. Care Teams Public Relations Senior Associate Relationship Specialty Start Date End Date Mulugeta Arnett MD [address] [address] PCP - General Family Medicine 07/16/23 documented as of this encounter
--- OUTSIDE RECORDS SUMMARY | 2024-06-18 10:35 | External Medical Summary | Summary of Care ---
Author Name Unknown Organization [facility] Address [address] [place] [address] Phone [phone] Care Team Providers Care Vehicle Sales Professional Name Role Phone Mulugeta Arnett MD Primary Care Provider Reason for Visit * Reason Comments Acute Encounter Details Date Type Department Care Team ([facility] Contact Info) Description 04/23/2024 8:20 AM EDT Office Visit [facility] [address] [place] [address] Mulugeta Arnett MD [address] [place] [address] Chest pain, unspecified type*; Amphetamine use disorder, moderate (HCC); Opioid use disorder Allergies No known active allergiesdocumented as of [...] suspected opioid overdose. Seek immediate medical attention. [email or web address] 1 Each 3 04/12/2024 Active documented as [...] Day Cigarettes 0.5 7 Smokeless Tobacco: Never Tobacco Cessation:Ready to Q uit: Not Asked; Counseling Given: Not Answered Comments:patient educated on health risks of smoking, [...] Sign Reading Time Taken Comments Blood Pressure 124/52 04/23/2024 8:10 AM EDT Pulse 97 04/23/2024 8:10 AM EDT Temperature 36.3 C (97.3 F) 04/23/2024 8:10 AM ED T Respiratory Rate 16 04/23/2024 8:10 AM EDT Oxygen Saturation 97% 04/23/2024 8:10 AM EDT Inhaled Oxygen Concentration - - Weight 76.5 kg (168 lb 11.2 oz) 04/23/2024 8:10 AM EDT Height 170.2 cm (5' 7") 04/23/2024 8:10 AM EDT Body Mass Index 26.42 04/23/2024 8:10 AM EDT documented in this encounter Functional [...] No 10/07/2023 documented as of this encounter Progress Notes * Mulugeta Arnett MD - 04/23/2024 8:15 AM EDT Images from the original note were not included. History of Present Illness Luis Toro is a 23 year old male that presents for Acute He is here for concerns about his blood pressure. He relapsed on meth 5 days ago. He went to the ER(note 04/20/24 reviewed). He has been taking buprenorphine for past 4-5 years, which he gets from [facility]. He has been trying to wean himself off of them because of issues with his heart. He may haveused drugs maybe once a month. He does not want to go to our substance abuse counselors. He took his friend's bp medication. He states that every time he goes to the ER, they give him ativan. He does not get/want the flu shot. He does not see a psychiatrist or therapist. Physical Exam Vitals: 04/23/24 0810 Temp: 36.3 C (97.3 F) Pulse: 97 Resp: 16 SpO2: 97% BP: 124/52 BMI: 26.42 Physical Exam Vitals reviewed. Constitutional: General: He is not in acute distress. Appearance: Normal appearance. He is not ill-appearing. Cardiovascular: Rate and Rhythm: Normal rate and regular rhythm. Heart sounds: No murmur heard. No friction rub. No gallop. Pulmonary: Effort: Pulmonary effort is normal. Breath sounds: No wheezing, rhonchi or rales. Musculoskeletal: Right lower leg: No edema. Left lower leg: No edema. Neurological: Mental Status: He is alert. I have reviewed the following results: Troponin, CMP, TSH, and CBC Assessment and Plan Chest pain, unspecified type Discussed concerning s/sx and ER parameters. Reviewed recent ER and primary care visits. Advised to f/u w/ cardiology as scheduled. Also advised to get arm home bp cuff and have it validated, as the majority of his outpatient bps are normal. Amphetamine use disorder, moderate (HCC) Contributing factor; discussed. Opioid use disorder Continue buprenorphine from [facility], as well as other meds prescribed by them. He deferred referral to our substance abuse team and psych. Wrap-Up Time: I spent a total of 30-39 minutes (exact time 30 mins) on the date of service in preparation, delivery, and documentation of the care provided to Luis Toro excluding any time spent in the performance of separately billed services. * Soledad Roberts, MED ASSIST - 04/23/2024 8:06 AM EDT Chief Complaint Patient presents with Acute PT states he has been having high BP 04/22 226/88 04/21 191/86 Patient has been verbally educated on the need or importance of Tdap Vaccine, Pneumococcal Vaccine,HPV Vaccine, and Flu Vaccine and has declined topic(s). documented in this encounter Plan of Treatment Upcoming Encounters Date Type Department Care Team (Late st Contact Info) Description 05/07/2024 2:10 PM EDT Office Visit Optometry, [place] [address] [place] [address] Greg Reddy Jr., OD [address] [place] [address] 06/18/2024 10:00 AM EST Office Visit Cardiology, [place] [address] [place] [address] Rianna Batista MD [address] [place], [place] [phone] 08/05/2024 2:40 PM EST Office Visit Family Practice, [place] [address] [place] [phone] Stacy Hopson CRNP [address] [place], [place] [phone] Health Maintenance Due Date Last Done Comments DISCUSS TOBACCO CESSATION (R EFER TO SMARTSET #[id number]) 1999 Pneumococcal Vaccine: Pediat rics (0 to 5 Years) and At-Risk Patients (6 to 64 Years) (1 of 2 - PCV) 2005 HPV (Gardasil) Vaccine (2 - Male 2-dose series) 07/06/2011 01/03/2011 DTap/Tdap Vaccines (7 - Td o r Tdap) 01/03/2021 01/03/2011, 03/28/2005, 10/24/2000, Additional history exists *SPIROMETRY ONCE FOR ASTHMA-ADULT 04/06/2024 COVID-19 Vaccine (2022-2 4 season) 2024 Influenza Vaccine (FLU shot) (#1) 2024 009 Depression Monitoring 10/14/2024 10/15/2023 Hepatitis B Vaccine Completed 01/19/2000, 1999, 1999 MENINGOCOCCAL (MENACTRA/MENVEO) Completed 11/14/2016, 09/03/2015, 01/03/2011 documented as of this encounter Medical Devices Not on filedocumented as of this encounter Visit Diagnoses Diagnosis Chest pain, unspecified type- Primary Amphetamine use disorder, moderate (HCC) Opioid use disorder documented in this encounter Advance Directives * [...] and were consensually agreed upon. Care Teams Vehicle Sales Professional Relationship Specialty Start Date End Date Mulugeta Arnett MD [address] [address] PCP - General Family Medicine 07/16/23 documented as of this encounter
--- OUTSIDE RECORDS SUMMARY | 2024-06-18 10:35 | External Medical Summary ---
Author Name Unknown Address Unknown Organization K1F:LABORATORY [facility] - [address] [place] [address] Laboratory Report Ordering Provider Test Date Status ONESIMO MÉNDEZ 06/05/2024 00:32:00 Final Observation Date Value Abnormality Reference (Units ) Status Ethanol 06/05/2024 00:32:00 77 Above high normal Ne gative (mg/dL) Final Performing Location LABORATORY [facility] - [address] [place] [address]
--- OUTSIDE RECORDS SUMMARY | 2024-06-18 10:35 | External Medical Summary | Summary of Care ---
Author Name Unknown Organization [facility] Address [address] [place] [address] Phone [phone] Care Team Providers Care Efficiency Expert Name Role Phone Mulugeta Arnett MD Primary Care Provider Encounter Details Date Type Department Care Team ([facility] st Contact Info) Description 04/21/2024 Population Health External Data Unspecified Department Allergies [...] suspected opioid overdose. Seek immediate medical attention. [email or web address] Each 3 04/12/2024 Active documented as [...] Description 05/07/2024 2:10 PM EDT [facility] [address] [place] [address] Greg Reddy Jr., OD [address] [place] [address] 06/18/2024 10:00 AM EST Office Visit Cardiology, [place] [address] [place] [address] Rianna Baitsta MD 400 [place] [address] 08/05/2024 2:40 PM EST Office Visit Family Practice, [place] [facility] [place] [phone] Stacy Hopson CRNP 21 [facility] [place] [id number] Health Maintenance Due Date Last Done Comments DISCUSS TOBACCO CESSATION (R EFER TO SMARTSET #3050) 1999 Pneumococcal Vaccine: Pediat rics (0 to [...] and were consensually agreed upon. Care Teams Efficiency Expert Relationship Specialty Start Date End Date Mulugeta Arnett MD [address] [address] PCP - General Family Medicine 07/16/23 documented as of this encounter
--- OUTSIDE RECORDS SUMMARY | 2024-06-18 10:35 | External Medical Summary ---
Author Name Unknown Address Unknown Organization K1F:LABORATORY [facility] - [address] [place] [address] Laboratory Report Ordering Provider Test Date Status ONESIMO MÉNDEZ 06/05/2024 00:32:00 Final Observation Date Value Abnormality Reference (Units ) Status Lactic Acid, Whole Blood 06/05/2024 00:32:00 2.9 Above high normal 0.4-2.0 (mmol/L) Final Performing Location LABORATORY [facility] - [address] [place] [address]
--- OUTSIDE RECORDS SUMMARY | 2024-06-18 10:36 | External Medical Summary ---
Author Name Unknown Address Unknown Organization K1F:LABORATORY [facility] - [address] [place] [address] Laboratory Report Ordering Provider Test Date Status LES ADAM 04/12/2024 17:17:00 Final Observation Date Value Abnormality Reference (Units ) Status Troponin T 04/12/2024 17:17:00 <6 <=22 (ng/ L) Final Performing Location LABORATORY [facility] - [address] [place] [address]
--- OUTSIDE RECORDS SUMMARY | 2024-06-18 10:36 | External Medical Summary ---
Author Name Unknown Address Unknown Organization K01:[place] [place] [address] [facility]. [facility] [address] Laboratory Report Ordering Provider Test Date Status LESTER HARMAN 04/20/2024 18:15:33 Final Cutoff Concentrations:
D rug Level
Amphetamine 50 ng/mL
Methamphetamine 50 ng/mL
Phentermine 50 ng/mL
Pseudoephedrine 50 ng/mL
MDMA/Ecstasy 50 ng/mL

This test was developed and its performance characteristics determined by [employer]. It has not been cleared or approved by the [place] Food and Drug Administration. Observation Date Value Abnormality Reference (Units) Status METHODOLOGY 04/20/2024 18:15:33 LC-MS/MS Final Amphetamine, Urine confirmatory 04/20/2024 18:15:33 149 Above high normal Negative (ng/mL) Final Methamphetamine, Urine confirmatory 04/20/2024 18:15:33 754 Above high normal Negative (ng/mL) Final Phentermine cutoff [Mass/volume] in Urine for Confirmatory method 04/20/2024 18:15:33 Negative Negative Final PSEUDOEPHEDRINE CONFIRMATION, U (CATEGORY) 04/20/2024 18:15:33 Negative Negative Final 7-Iuhoecxawv-1,5-Dimeth yl-3,3-Diphenylpyrrolid ine (EDDP) [Mass/volume] in Urine by Confirmatory method 04/20/2024 18:15:33 Negative Negative Final Performing Location [facility] [place] [address] [facility] [facility] [address]
--- OUTSIDE RECORDS SUMMARY | 2024-06-18 10:36 | External Medical Summary ---
Author Name Unknown Address Unknown Organization K1F:LABORATORY [facility] - [address] [place] [address] Laboratory Report Ordering Provider Test Date Status LESTER HARMAN 04/20/2024 17:24:25 Final Observation Date Value Abnormality Reference (Units ) Status Lactic Acid 04/20/2024 17:24:25 1.2 0.4-2.0 (mmol/L) Final Performing Location LABORATORY [facility] - [address] [place] [address]
--- OUTSIDE RECORDS SUMMARY | 2024-06-18 10:36 | External Medical Summary ---
Author Name Unknown Address Unknown Organization K1F:LABORATORY [facility] - [address] [place] [address] Laboratory Report Ordering Provider Test Date Status LESTER HARMAN 04/20/2024 15:44:39 Final Observation Date Value Abnormality Reference (Units ) Status Lactic Acid 04/20/2024 15:44:39 3.9 Above high normal 0.4-2.0 (mmol/L) Final Performing Location LABORATORY [facility] - [address] [place] [address]
--- OUTSIDE RECORDS SUMMARY | 2024-06-18 10:36 | External Medical Summary ---
Author Name Unknown Address Unknown Organization K1F:LABORATORY [facility] - [address] [place] [address] Laboratory Report Ordering Provider Test Date Status ARTIE EARLY 04/20/2024 15:44:39 Final Observation Date Value Abnormality Reference (Units ) Status TSH 04/20/2024 15:44:39 0.67 0.27-4.20 (uIU/mL) Final Performing Location LABORATORY [facility] - [address] [place] [address]
--- OUTSIDE RECORDS SUMMARY | 2024-06-18 10:36 | External Medical Summary ---
Author Name Unknown Address Unknown Organization K1F:LABORATORY [facility] - [address] [place] [address] Laboratory Report Ordering Provider Test Date Status JAROD ADAMDER 04/12/2024 17:18:00 Final Observation Date Value Abnormality Reference (Units ) Status BUN 04/12/2024 17:18:00 26 Above high normal 6-20 (mg/dL) Final Creatinine 04/12/2024 17:18:00 0.9 0.6-1.2 (mg/dL) Final Glomerular filtration rate/1.73 sq M.predicted [Volume Rate/Area] in Serum, Plasma or Blood by Creatinine-based formula (CKD-EPI) 04/12/2024 17:18:00 >90 >=60 (mL/min) Final eGFR is calculated based on the CKD-EPI 2020 equation. Sodium 04/12/2024 17:18:00 139 135-146 (m mol/L) Final Potassium 04/12/2024 17:18:00 3.8 3.5-5.1 (m mol/L) Final Cl 04/12/2024 17:18:00 105 98-107 (mm ol/L) Final CO2 04/12/2024 17:18:00 22 22-32 (mmo l/L) Final Anion gap 04/12/2024 17:18:00 12 7-15 (mmol /L) Final Glucose 04/12/2024 17:18:00 122 Above high normal 70 -120 (mg/dL) Final Albumin 04/12/2024 17:18:00 4.1 3.8-5.0 (g /dL) Final AST (Aspartate aminotransferase) 04/12/2024 17:18:00 22 10-50 (U/L) Fin al Alk Phos 04/12/2024 17:18:00 93 35-130 (U/ L) Final Bilirubin, Total 04/12/2024 17:18:00 0.3 <=1 .2 (mg/dL) Final Calcium 04/12/2024 17:18:00 9.3 8.4-10.2 ( mg/dL) Final Protein 04/12/2024 17:18:00 7.4 6.0-8.3 (g /dL) Final ALT (Alanine aminotransferase) 04/12/2024 17:18:00 26 10-50 (U/L) Miguel dowell Performing Location LABORATORY [facility] - [facility] [address] [place] [address]
--- OUTSIDE RECORDS SUMMARY | 2024-06-18 10:36 | External Medical Summary ---
Author Name Unknown Address Unknown Organization K1F:LABORATORY [facility] - [address] [place] [address] Laboratory Report Ordering Provider Test Date Status LESTER HARMAN 04/20/2024 17:00:14 Final Observation Date Value Abnormality Reference (Units ) Status Troponin T 04/20/2024 17:00:14 <6 <=22 (ng/ L) Final Performing Location LABORATORY [facility] - [address] [place] [address]
--- OUTSIDE RECORDS SUMMARY | 2024-06-18 10:36 | External Medical Summary ---
Author Name Unknown Address Unknown Organization K1F:LABORATORY [facility] - [address] [place] [address] Laboratory Report Ordering Provider Test Date Status LESTER HARMAN 04/20/2024 15:31:18 Final Observation Date Value Abnormality Reference (Units ) Status Troponin T 04/20/2024 15:31:18 <6 <=22 (ng/ L) Final Result may be falsely decrea sed due to hemolysis. Performing Location LABORATORY [facility] - [address] [place] [address]
--- OUTSIDE RECORDS SUMMARY | 2024-06-18 10:36 | External Medical Summary ---
Author Name Unknown Address Unknown Organization K1F:LABORATORY [facility] - [address] [place] [address] Laboratory Report Ordering Provider Test Date Status JUAN LUGO 04/20/2024 17:00:14 Final Observation Date Value Abnormality Reference (Units ) Status CK 04/20/2024 17:00:14 125 39-308 (U/ L) Final Performing Location LABORATORY [facility] - [address] [place] [address]
--- OUTSIDE RECORDS SUMMARY | 2024-06-18 10:36 | External Medical Summary ---
Author Name Unknown Address Unknown Organization K1F:LABORATORY [facility] - [address] [place] [address] Laboratory Report Ordering Provider Test Date Status LESTER HARMAN 04/20/2024 15:31:18 Final Observation Date Value Abnormality Reference (Units ) Status WBC, Total 04/20/2024 15:31:18 13.79 Above high normal 4.00-10.80 (K/uL) Final RBC 04/20/2024 15:31:18 5.40 4.50-5.25 (M/uL) Final Hemoglobin 04/20/2024 15:31:18 16.5 14.0-16.8 (g/dL) Final HCT 04/20/2024 15:31:18 48.5 Above high normal 40.0-48.4 (%) Final MCV 04/20/2024 15:31:18 89.8 82.0-99.5 (fL) Final MCH 04/20/2024 15:31:18 30.6 27.0-34.0 (pg) Final MCHC 04/20/2024 15:31:18 34.0 32.0-36.0 (g/dL) Final RDW 04/20/2024 15:31:18 13.2 11.5-15.5 (%) Final Platelets 04/20/2024 15:31:18 295 140-400 (K/uL) Final MPV 04/20/2024 15:31:18 9.9 6.6-11.1 (fL) Final Nucleated erythrocytes/100 leukocytes [Ratio] in Blood by Automated count 04/20/2024 15:31:18 0 <=0 (/100 WBCs) Final Performing Location LABORATORY [facility] - [address] [place] [address]
--- OUTSIDE RECORDS SUMMARY | 2024-06-18 10:36 | External Medical Summary | Summary of Care ---
Author Name Unknown Organization [facility] Address [address] [place] [address] Phone [phone] Care Team Providers Care Pe Electrical Engineer Name Role Phone Mulugeta Arnett MD Primary Care Provider Reason for Visit * Reason Comments Chest Pain * Auth/Cert Specialty Diagnoses / Procedures Referred By Juany camargo Referred To Contact [facility] [address] [place] [address] Phone: [phone] Emergency Medicine [facility] [address] [place] [address] Referral ID Status Reason Start Date Expiration Date Visits Re quested Visits Authorized [id number] Encounter Details Date Type Department Care Team (Late st Contact Info) Description 04/12/2024 4:41 PM EDT - 04/12/2024 5:25 PM EDT Emergency [facility] Emergency Department ([facility]) [address] [place] [address] Ramírez Cash DO [address] [place] [phone] Other chest pain (Primary Dx) Discharge Disposition: Home - Self Care Allergies No known active allergiesdocumented as of this encounter (statuses as of 04/13/2024) Medications Medication Sig Dispensed Refills Start Date [...] suspected opioid overdose. Seek immediate medical attention. [email or web address] 1 Each 3 04/12/2024 Active documented as of this encounter (statuses as of 04/13/2024) Active Problems Problem Noted Date Diagnosed Date [...] as of this encounter (statuses as of 04/13/2024) Resolved Problems Problem Noted Date Diagnosed Date Resolved Date Aggressive behavior 10/07/2023 10/15/19 24 Psychosis 10/07/2023 10/15/2023 Cellulitis of right leg 07/12/202302/12 Sepsis without acute organ dysfunction 07/12/2023 03/11/2024 Tobacco use disorder 09/03/2015 024 documented as of this encounter (statuses as of 04/13/2024) Immunizations Name Administration Dates Next Due DTaP [...] Sign Reading Time Taken Comments Blood Pressure 115/79 04/12/2024 4:28 PM EDT Pulse 111 04/12/2024 4:28 PM EDT Temperature 36.1 C (97 F) 04/12/2024 4:28 PM EDT Respiratory Rate 16 04/12/2024 4:28 PM EDT Oxygen Saturation 100% 04/12/2024 4:28 PM EDT Inhaled Oxygen Concentration - - Weight 74.8 kg (165 lb) 04/12/2024 4:28 PM EDT Height 170.2 cm (5' 7") 04/12/2024 4:28 PM EDT Body Mass Index 25.84 04/12/2024 4:28 PM EDT documented in this encounter Functional [...] this encounter Discharge Instructions * Discharge Instructions* Iker Cedillo PA-C - 04/12/2024 5:16 PM EDT You were seen today in the emergency department for chest pain. You did agree to have labs done, these were drawn, you then wanted to leave after they were drawn and be called with the results. I will call you with anything abnormal on the results. A sign you were sent a prescription for your Subutex, please follow up with the primary care doctorfor refills of this medication. Please return to the ED with worsening condition. documented in this encounter ED Notes * Catrina Quispe RN - 04/12/2024 4:38 PM EDT Pt says that he is having CP that started today while he was walking. Denies the CP radiating anywhere. Says that is constant in the middle of his chest. Says "I think I had a stroke 2 days ago because my left side went numb." documented in this encounter Miscellaneous Notes * ED Dial Refinisher Note - Aby Giron RN - 04/12/2024 5:25 PM EDT Pt verbalized understanding of d/c instructions. Ambulated from ED with steady gait documented in this encounter Plan of Treatment Upcoming Encounters Date Type Department Care Team (Late st Contact Info) Description 05/07/2024 2:10 PM EDT Office Visit Optometry, [place] [address] Greg Reddy Jr., OD [address] [place] [address] 06/18/2024 10:00 AM EST Office Visit Cardiology, [place] [address] [place], [place] [address] [address] Rianna Batista MD [address] [place] [address] 08/05/2024 2:40 PM EST Office Visit [facility] [place] [address] [phone] Stacy Hopson CRNP [address] [place] [id number] Health Maintenance Due Date Last Done Comments DISCUSS TOBACCO CESSATION (R EFER TO SMARTSET #3331) 1999 Pneumococcal Vaccine: Pediat rics (0 to 5 Years) and At-Risk Patients (6 to 64 Years) (1 of 2 - PCV) 2005 HPV (Gardasil) Vaccine (2 - Male 2-dose series) 07/06/2011 01/03/2011 DTap/Tdap Vaccines (7 - Td o r Tdap) 01/03/2021 01/03/2011, 03/28/2005, 10/24/2000, Additional history exists COVID-19 Vaccine (1 - 2022-2 4 season) 2023 *SPIROMETRY ONCE FOR ASTHMA-ADULT 04/06/2024 Influenza Vaccine (FLU shot) (#1) 2024 009 Depression Monitoring 10/14/2024 10/15/2023 Hepatitis B Vaccine Completed 01/19/2000, 1999, 1999 MENINGOCOCCAL (MENACTRA/MENVEO) Completed 11/14/2016, 09/03/2015, 01/03/2011 documented as of this encounter Medical Devices Not on filedocumented as of this encounter Procedures Procedure Name Priority Date/Time Associated Diagnosis Comments EXTRA LIGHT BLUE TOP Routine 04/12/2024 5:18 PM EDT COMPREHENSIVE METABOLIC PANEL STAT 04/12/2024 5:18 PM EDT DIFFERENTIAL, AUTOMATED STAT 04/12/2024 5:17 PM EDT TROPONIN T, HIGH SENSITIVITY STAT 04/12/2024 5:17 PM EDT CBC STAT 04/12/2024 5:17 PM EDT CBC STAT 04/12/2024 5:17 PM EDT XR CHEST 1 VIEW STAT 04/12/2024 4:58 PM EDT documented in this encounter Results * EXTRA LIGHT BLUE TOP (04/12/2024 5:18 PM EDT) Blood Venous blood specimen / Unknown Venipuncture / Unknown 04/12/2024 5:18 PM EDT 04/12/2024 5:31 PM EDT Iker Cedillo PA-C LAB BLOOD ORDERA BLES LABORATORY [facility] [address] [place] [address] * (ABNORMAL) COMPREHENSIVE METABOLIC PANEL (04/12/2024 5:18 PM EDT) BUN 26(H) 6 - 20 mg/dL 04/12/2024 5:55 PM EDT LAB[facility]ORY [facility] Creatinine 0.9 0.6 - 1.2 mg/dL 04/12/2024 5:55 PM EDT LAB[facility]ORY [facility] Estimated Glomerular Filtration Rate >90 >=60 mL/min 04/12/2024 5:55 PM EDT LAB[facility]ORY [facility] Comment:eGFR is calculated b ased on the CKD-EPI 2020 equation. Sodium 139 135 - 146 mmol/L 04/12/2024 5:55 PM EDT LAB[facility]ORY [facility] Potassium 3.8 3.5 - 5.1 mmol/L 04/12/2024 5:55 PM EDT LAB[facility] Chloride 105 98 - 107 mmol/L 04/12/2024 5:55 PM EDT LAB[facility] CO2 22 22 - 32 mmol/L 04/12/2024 5:55 PM EDT LAB[facility] Anion Gap 12 7 - 15 mmol/L 04/12/2024 5:55 PM EDT LAB[facility] Glucose 122(H) 70 - 120 mg/dL 04/12/2024 5:55 PM EDT LAB[facility] Albumin 4.1 3.8 - 5.0 g/dL 04/12/2024 5:55 PM EDT LAB[facility] AST 22 10 - 50 U/L 04/12/2024 5:55 PM EDT [facility] Alkaline Phosphatase 93 35 - 130 U/L 04/12/2024 5:55 PM EDT [facility] Bilirubin, Total 0.3 <=1.2 mg/dL 04/12/2024 5:55 PM EDT [facility] Calcium 9.3 8.4 - 10.2 mg/dL 04/12/2024 5:55 PM EDT [facility] Protein 7.4 6.0 - 8.3 g/dL 04/12/2024 5:55 PM EDT [facility] ALT 26 10 - 50 U/L 04/12/2024 5:55 PM EDT [facility] Blood Venous blood specimen / Unknown Venipuncture / Unknown 04/12/2024 5:18 PM EDT 04/12/2024 5:31 PM EDT Iker Cedillo PA-C LAB BLOOD ORDERA BLES LAB[facility]AT[facility] [address] [place] [address] * DIFFERENTIAL, AUTOMATED (04/12/2024 5:17 PM EDT) WBC 9.75 4.00 - 10.80 K/uL 04/12/2024 5:35 PM EDT LAB[facility]ORY [facility] Neutrophils % 68.5 40.0 - 75.0 % 04/12/2024 5:35 PM EDT LAB[facility] Lymphocytes % 20.8 18.0 - 42.0 % 04/12/2024 5:35 PM EDT LAB[facility] Monocytes % 4.6 1.0 - 11.0 % 04/12/2024 5:35 PM EDT LAB[facility] Eosinophils % 4.9 0.0 - 6.0 % 04/12/2024 5:35 PM EDT LAB[facility] Basophils % 0.5 0.0 - 2.0 % 04/12/2024 5:35 PM EDT LAB[facility] Immature Granulocytes % 0.7 0.0 - 2.0 % 04/12/2024 5:35 PM EDT LABORATORY [facility] Absolute Neutrophils 6.67 1.80 - 7.70 K/uL 04/12/2024 5:35 PM EDT LABORATORY [facility] Absolute Lymphocytes 2.03 1.00 - 4.80 K/ul 04/12/2024 5:35 PM EDT LABORATORY [facility] Absolute Monocytes 0.45 0.00 - 1.10 K/uL 04/12/2024 5:35 PM EDT LABORATORY [facility] Absolute Eosinophils 0.48 0.00 - 0.70 K/uL 04/12/2024 5:35 PM EDT LABORATORY [facility] Absolute Basophils 0.05 0.00 - 0.20 K/uL 04/12/2024 5:35 PM EDT LABORATORY [facility] Absolute Immature Granulocytes 0.07 0.00 - 0.20 K/uL 04/12/2024 5:35 PM EDT LABORATORY [facility] Blood Venous blood specimen / Unknown Venipuncture / Unknown 04/12/2024 5:17 PM EDT 04/12/2024 5:31 PM EDT Iker Cedillo PA-C LAB BLOOD ORDERA BLES LABORATORY [facility] [address] [place] [address] * CBC (04/12/2024 5:17 PM EDT) WBC 9.75 4.00 - 10.80 K/uL 04/12/2024 5:35 PM EDT LABORATORY GL RBC 4.93 4.50 - 5.25 M/uL 04/12/2024 5:35 PM EDT LABORATORY GL HGB 15.1 14.0 - 16.8 g/dL 04/12/2024 5:35 PM EDT LABORATORY GL HCT 44.6 40.0 - 48.4 % 04/12/2024 5:35 PM EDT LABORATORY GL MCV 90.5 82.0 - 99.5 fL 04/12/2024 5:35 PM EDT LABORATORY GL MCH 30.6 27.0 - 34.0 pg 04/12/2024 5:35 PM EDT LABORATORY GL MCHC 33.9 32.0 - 36.0 g/dL 04/12/2024 5:35 PM EDT LABORATORY [facility] RDW 13.4 11.5 - 15.5 % 04/12/2024 5:35 PM EDT LABORATORY [facility] PLT 240 140 - 400 K/uL 04/12/2024 5:35 PM EDT LABORATORY [facility] MPV 9.2 6.6 - 11.1 fL 04/12/2024 5:35 PM EDT LABORATORY [facility] nRBCs 0 <=0 /100 WBCs 04/12/2024 5:35 PM EDT LABORATORY [facility] Blood Venous blood specimen / Unknown Venipuncture / Unknown 04/12/2024 5:17 PM EDT 04/12/2024 5:31 PM EDT Iker Cedillo PA-C LAB BLOOD ORDERA BLES Performing Organization Address City/[facility]/ZIP Co de Phone Number LABORATORY [address] [address] * TROPONIN T, HIGH SENSITIVITY (04/12/2024 5:17 PM EDT) [facility] Troponin T, High Sensitivity <6 <=22 ng/L 04/12/2024 6:01 PM EDT LABORATORY [facility] Blood Venous blood specimen / Unknown Venipuncture / Unknown 04/12/2024 5:17 PM EDT 04/12/2024 5:31 PM EDT Iker Cedillo PA-C LAB BLOOD ORDERA BLES Performing Organization Address City/[facility]/ZIP Co de Phone Number LABORATORY [address] [address] * XR CHEST 1 VIEW (04/12/2024 4:58 PM EDT) Anatomical Region Laterality Modality Chest Digital Radiogra phy 04/12/2024 4:53 PM EDT Impressions 04/12/2024 5:20 PM EDT IMPRESSION: 1. No acute cardiopulmonary disease identified. THIS DOCUMENT HAS BEEN ELECTRONICALLY SIGNED BY ALEXYS AMEZQUITA MD Narrative 04/12/2024 5:20 PM EDT PROCEDURE INFORMATION: Exam: XR Chest Exam date and time: 04/12/2024 4:53 PM Age: 23 years old Clinical indication: Pain; Angina pectoris; Additional info: Chest pain TECHNIQUE: Imaging protocol: Radiologic exam of the chest. Views: 1 view. COMPARISON: DX XR CHEST 2 VIEWS 04/09/2024 9:31 PM FINDINGS: Lungs: The lung obregon are clear. No infiltrates. The pulmonary vasculature is unremarkable. Pleural spaces: No effusions or pneumothoraces. Heart/Mediastinum: The heart is normal in size. The superior mediastinum is unremarkable. Bones/joints: No acute bony changes identified. Procedure Note Alexys Amezquita MD - 04/12/2024 PROCEDURE INFORMATION: Exam: XR Chest Exam date and time: 04/12/2024 4:53 PM Age: 23 years old Clinical indication: Pain; Angina pectoris; Additional info: Chest pain TECHNIQUE: Imaging protocol: Radiologic exam of the chest. Views: 1 view. COMPARISON: DX XR CHEST 2 VIEWS 04/09/2024 9:31 PM FINDINGS: Lungs: The lung obregon are clear. No infiltrates. The pulmonaryvasculature is unremarkable. Pleural spaces: No effusions or pneumothoraces. Heart/Mediastinum: The heart is normal in size. The superior mediastinumis unremarkable. Bones/joints: No acute bony changes identified. IMPRESSION IMPRESSION: 1. No acute cardiopulmonary disease identified. THIS DOCUMENT HAS BEEN ELECTRONICALLY SIGNED BY ALEXYS AMEZQUITA MD Iker Cedillo PA-C RADIOLOGY (RAD G ENERAL) documented in this encounter Visit Diagnoses Diagnosis Other chest pain- Primary documented in this encounter Administered Medications Inactive Administered Medications - up to 3 most recent administrations Medication Order MAR Action Action Date Dose Rate Site buprenorphine HCl (Subutex) sublingual tab 8 mg 8 mg, Oral, Once, On 04/12/24 at 1730, For 1 dose Given 04/12/2024 5:04 PM EDT 8 mg documented in this encounter Active and Recently Administered Medications Times are shown in EDT. Scheduled Medication Order 04/10/2024 04/11/2024 04/12/2024 buprenorphine HCl (Subutex) sublingual tab 8 mg (COMPLETED) 8 mg, Oral, Once, On 04/12/24 at 1730, For 1 dose 1704 (Given - Provid er: Aby Giron RN) documented in this encounter Advance Directives * [...] and were consensually agreed upon. Care Teams Pe Electrical Engineer Relationship Specialty Start Date End Date Mulugeta Arnett MD [address] [place] [address] PCP - General Family Medicine 07/16/23 documented as of this encounter
--- OUTSIDE RECORDS SUMMARY | 2024-06-18 10:36 | External Medical Summary ---
Author Name Unknown Address Unknown Organization : Laboratory Report Ordering Provider Test Date Status NO,UNKNOWN 04/20/2024 15:19:49 Final Observation Date Value Abnormality Reference (Units ) Status Glucose Point of Care 04/20/2024 15:19:49 120 70-120 (mg/dL) Final Performing Location
--- OUTSIDE RECORDS SUMMARY | 2024-06-18 10:36 | External Medical Summary | Summary of Care ---
Author Name Unknown Organization [facility] Address [address] [place] [address] Phone [phone] Care Team Providers Care Space Sciences Director Name Role Phone Mulugeta Arnett MD Primary Care Provider Reason for Visit * Reason Onset Date Comments Advice 04/11/2024 Encounter Details Date Type Department Care Team ([facility] st Contact Info) Description 04/11/2024 Telephone [facility] [address] [place] [address] Mulugeta Arnett MD [address] [place], [place] [phone] Advice Allergies No known active allergiesdocumented as of this encounter (statuses as of 04/15/2024) Medications Medication Sig Dispensed Refills Start Date End Date Status Diclofenac Sodium 75 MG Oral Tablet Delayed Release (Voltaren)Indications :Chronic low back pain with sciatica, sciatica laterality unspecified, unspecified back pain laterality Take 1 Tablet by mouth in the morning and 1 Tablet before bedtime. With food.. 60 Tablet 03/11/2024 Active hydrOXYzine HCl 10 MG Oral Tablet (Atarax)Indications:A nxiety Take 1 Tablet by mouth every 8 [...] Active Cyclobenzaprine HCl 10 MG Oral Tablet (Flexeril)Indications :Right-sided low back pain without sciatica, unspecified chronicity Take 1 Tablet by mouth at bedtime as needed for Muscle spasms. 10 Tablet 04/03/2024 Active documented as of this encounter (statuses as of 04/15/2024) Active Problems Problem Noted Date Diagnosed Date [...] as of this encounter (statuses as of 04/15/2024) Resolved Problems Problem Noted Date Diagnosed Date Resolved Date Aggressive behavior 10/07/2023 10/15/19 Psychosis 10/07/2023 10/15/2023 Cellulitis of right leg 07/12/2023 07 Sepsis without acute organ dysfunction 07/12/2023 03/11/2024 Tobacco use disorder 09/03/2015 024 documented as of this encounter (statuses as of 04/15/2024) Immunizations Name Administration Dates Next Due DTaP [...] encounter Miscellaneous Notes * Telephone Encounter - Becka Rodriguez MED ASSIST - 04/11/2024 11:41 AM EDT Pt aware and will call the company. Reinforced if he call abut ZIO, follow up with cardiology and feels if he is having an episode again that he is concerned as he states is a stroke he should seek medical attention. Pt verbalized understanding. * Telephone Encounter - Stacy Hopson CRNP - 04/11/2024 11:34 AM EDT Have him reach out to the company and follow their directions to have it replaced. The goal is for him to have it on during an episode to catch what may be happening. Please reinforce this with patient * Telephone Encounter - Becka Rodriguez MED ASSIST - 04/11/2024 11:24 AM EDT I called pt to see when his ZIO fell off and if he called the company as he was placed on the nurseschedule for replacement. Spoke to pt and he reports it fell off the same day it was put on but he really did not care til yesterday. Pt states he tried to put it back on around 3 pm yesterday when he had an episode. Pt states his left side went numb and he had pain and needles and was not able to get out of bed for 20 minutes. Pt states he no longer has numbness but has trouble walking as the bottom of his left foot feels numb. He denies any chest pain, facial droop or issues with speech now or when the episode occurred. He states he has been under a lot of stress. documented in this encounter Plan of Treatment Upcoming Encounters Date Type Department Care Team (Late st Contact Info) Description 05/07/2024 2:10 PM EDT Office Visit Optometry, [place] [address] [place] [address] Greg Reddy Jr., OD [address] [place] [address] 06/18/2024 10:00 AM EST Office Visit Cardiology, [place] [address] [place] [phone] Rianna Batista MD [address] [place], [place] [phone] 08/05/2024 2:40 PM EST Office Visit Family Practice, [place] 21 [facility] [place] [address] Stacy Hopson CRNP [address] [place], [place] [phone] Health Maintenance Due Date Last Done Comments DISCUSS TOBACCO CESSATION (R MANJINDERER TO SMARTSET #[id number]) 1999 Pneumococcal Vaccine: Pediat rics (0 to [...] and were consensually agreed upon. Care Teams Space Sciences Director Relationship Specialty Start Date End Date Mulugeta Arnett MD [address] [address] PCP - General Family Medicine 07/16/23 documented as of this encounter
--- OUTSIDE RECORDS SUMMARY | 2024-06-18 10:36 | External Medical Summary ---
Author Name Unknown Address Unknown Organization K1F:LABORATORY [facility] - [address] [facility] [place] [address] Laboratory Report Ordering Provider Test Date Status LESTER HARMAN 04/20/2024 16:27:33 Final ADMITTED patient Observation Date Value Abnormality Reference (Units ) Status Adenovirus DNA [Presence] in Nasopharynx by [facility] with non-probe detection 04/20/2024 16:27:33 Negative Negative Final Human coronavirus 229E RNA [Presence] in Nasopharynx by [facility] with non-probe detection 04/20/2024 16:27:33 Negative Negative Final Human coronavirus HKU1 RNA [Presence] in Nasopharynx by [facility] with non-probe detection 04/20/2024 16:27:33 Negative Negative Final Human coronavirus NL63 RNA [Presence] in Nasopharynx by [facility] with non-probe detection 04/20/2024 16:27:33 Negative Negative Final Human coronavirus OC43 RNA [Presence] in Nasopharynx by [facility] with non-probe detection 04/20/2024 16:27:33 Negative Negative Final SARS-CoV-2 (COVID-19) RNA [Presence] in Nasopharynx by [facility]INGS with non-probe detection 04/20/2024 16:27:33 Negative Negative Final Human metapneumovirus RNA [Presence] in Nasopharynx by [facility]INGS with non-probe detection 04/20/2024 16:27:33 Negative Negative Final Rhinovirus+Enterovirus RNA [Presence] in Nasopharynx by KINGS with non-probe detection 04/20/2024 16:27:33 Negative Negative Final Influenza virus A RNA [Presence] in Nasopharynx by [facility]INGS with non-probe detection 04/20/2024 16:27:33 Negative Negative Final Influenza virus B RNA [Presence] in Nasopharynx by [facility]INGS with non-probe detection 04/20/2024 16:27:33 Negative Negative Final Parainfluenza virus 1 RNA [Presence] in Nasopharynx by [facility]INGS with non-probe detection 04/20/2024 16:27:33 Negative Negative Final Parainfluenza virus 2 RNA [Presence] in Nasopharynx by [facility]INGS with non-probe detection 04/20/2024 16:27:33 Negative Negative Final Parainfluenza virus 3 RNA [Presence] in Nasopharynx by KINGS with non-probe detection 04/20/2024 16:27:33 Negative Negative Final Parainfluenza virus 4 RNA [Presence] in Nasopharynx by [facility]INGS with non-probe detection 04/20/2024 16:27:33 Negative Negative Final Respiratory syncytial virus RNA [Presence] in Nasopharynx by [facility] with non-probe detection 04/20/2024 16:27:33 Negative Negative Final Bordetella pertussis.pertussis toxin promoter region [Presence] in Nasopharynx by [facility]INGS with non-probe detection 04/20/2024 16:27:33 Negative Negative Final Chlamydophila pneumoniae DNA [Presence] in Nasopharynx by [facility]INGS with non-probe detection 04/20/2024 16:27:33 Negative Negative Final Mycoplasma pneumoniae DNA [Presence] in Nasopharynx by [facility] with non-probe detection 04/20/2024 16:27:33 Negative Negative Final Bordetella parapertussis VY0002 DNA [Presence] in Nasopharynx by [facility] with non-probe detection 04/20/2024 16:27:33 Negative Negative Final
The primers that detect Rhinovirus may cross react with some Enterorviruses. The validation of bronchial specimens, tracheal aspirates, and throats for this assay was developed and performance characteristics determined by [employer]. The validation of alternate specimen types has not been cleared or approved by the U.S. Food and Drug Administration (FDA). It has been determined that such clearance or approval is not necessary. [facility] - [address] [facility] [address] [address]
--- OUTSIDE RECORDS SUMMARY | 2024-06-18 10:36 | External Medical Summary ---
Author Name Unknown Address Unknown Organization K01:LABORATORY [facility] - [address] [facility] [address] Laboratory Report Ordering Provider Test Date Status LESTER HARMAN 04/20/2024 18:15:33 Final Cutoff Concentrations:
D rug Level
Alpha-Hydroxyalprazolam 10 ng/mL
7-Aminoclonazepam 20 ng/mL
Nordiazepam 20 ng/mL
Oxazepam 20 ng/mL
Temazepam 20 ng/mL
Lorazepam 10 ng/mL

This test was developed and its performance characteristics determined by [employer]. It has not been cleared or approved by the US Food and Drug Administration. Observation Date Value Abnormality Reference (Units) Status METHODOLOGY 04/20/2024 18:15:33 LC-MS/MS Final Alpha hydroxyalprazolam cutoff [Mass/volume] in Urine for Confirmatory method 04/20/2024 18:15:33 Negative Negative Final 7-Aminoclonazepam [Mass/volume] in Urine by Confirmatory method 04/20/2024 18:15:33 Negative Negative Final Nordiazepam cutoff [Mass/volume] in Urine for Confirmatory method 04/20/2024 18:15:33 Negative Negative Final Oxazepam cutoff [Mass/volume] in Urine for Confirmatory method 04/20/2024 18:15:33 Negative Negative Final Temazepam cutoff [Mass/volume] in Urine for Confirmatory method 04/20/2024 18:15:33 Negative Negative Final LORazepam cutoff [Mass/volume] in Urine for Confirmatory method 04/20/2024 18:15:33 495 Above high normal Negative (ng/mL) Final Performing Location LABORATORY [facility] - [facility] [place] [address]
--- OUTSIDE RECORDS SUMMARY | 2024-06-18 10:36 | External Medical Summary ---
Author Name Unknown Address Unknown Organization K1F:LABORATORY [facility] - [address] [facility] [place] [address] Laboratory Report Ordering Provider Test Date Status JAROD ADAMDER 04/12/2024 17:17:00 Final Observation Date Value Abnormality Reference (Units ) Status SYNC LEUKOCYTES IN BLOOD BY AUTOMATED COUNT 04/12/2024 17:17:00 9.75 4.00-10.80 (K/uL) Final Segs 04/12/2024 17:17:00 68.5 40.0-75.0 (%) Final Lymphs % 04/12/2024 17:17:00 20.8 18.0-42.0 (%) Final Monos 04/12/2024 17:17:00 4.6 1.0-11.0 (%) Final Eosinophils 04/12/2024 17:17:00 4.9 0.0-6.0 (%) Final Basos 04/12/2024 17:17:00 0.5 0.0-2.0 (%) Final Immature Granulocyte, Percent 04/12/2024 17:17:00 0.7 0.0-2.0 (%) Final Absolute Segs 04/12/2024 17:17:00 6.67 1.80-7.70 (K/uL) Final Lymphs, absolute 04/12/2024 17:17:00 2.03 1.00-4.80 (K/ul) Final Monos, Abs 04/12/2024 17:17:00 0.45 0.00-1.10 (K/uL) Final Eos, Abs 04/12/2024 17:17:00 0.48 0.00-0.70 (K/uL) Final Basos, Abs 04/12/2024 17:17:00 0.05 0.00-0.20 (K/uL) Final Immature Granulocytes, Number 04/12/2024 17:17:00 0.07 0.00-0.20 (K/uL) Final Performing Location [facility]ATORY [facility] [address] [facility] [address] [place] [address]
--- OUTSIDE RECORDS SUMMARY | 2024-06-18 10:36 | External Medical Summary ---
Author Name Unknown Address Unknown Organization K1F:LABORATORY [facility] - [address] [place] [address] Laboratory Report Ordering Provider Test Date Status LESTER HARMAN 04/20/2024 15:31:18 Final Observation Date Value Abnormality Reference (Units ) Status BUN 04/20/2024 15:31:18 24 Above high normal 6-20 (mg/dL) Final Creatinine 04/20/2024 15:31:18 0.8 0.6-1.2 (mg/dL) Final Glomerular filtration rate/1.73 sq M.predicted [Volume Rate/Area] in Serum, Plasma or Blood by Creatinine-based formula (CKD-EPI) 04/20/2024 15:31:18 >90 >=60 (mL/min) Final eGFR is calculated based on the CKD-EPI 2020 equation. Sodium 04/20/2024 15:31:18 138 135-146 (m mol/L) Final Potassium 04/20/2024 15:31:18 Final Specimen too hemolyzed. Reor yu if needed. Cl 04/20/2024 15:31:18 104 98-107 (mm ol/L) Final CO2 04/20/2024 15:31:18 19 Below low normal 22- 32 (mmol/L) Final Anion gap 04/20/2024 15:31:18 15 7-15 (mmol /L) Final Glucose 04/20/2024 15:31:18 117 70-120 (mg /dL) Final Albumin 04/20/2024 15:31:18 4.7 3.8-5.0 (g /dL) Final AST (Aspartate aminotransferase) 04/20/2024 15:31:18 Fin al Specimen too hemolyzed. Reor yu if needed. Alk Phos 04/20/2024 15:31:18 90 35-130 (U/ L) Final Results may be falsely eleva alessandra due to hemolysis. Bilirubin, Total 04/20/2024 15:31:18 0.4 <=1 .2 (mg/dL) Final Calcium 04/20/2024 15:31:18 9.8 8.4-10.2 ( mg/dL) Final Protein 04/20/2024 15:31:18 8.5 Above high normal 6. 0-8.3 (g/dL) Final ALT (Alanine aminotransferase) 04/20/2024 15:31:18 21 10-50 (U/L) Fin al Results may be falsely eleva alessandra due to hemolysis. Performing Location LABORATORY [facility] - [facility] [place][note 2] [address] [address]. [place] [address]
--- OUTSIDE RECORDS SUMMARY | 2024-06-18 10:36 | External Medical Summary | Summary of Care ---
Author Name Unknown Organization [facility] Address [address] [place] [address] Phone [phone] Care Team Providers Care Data Integrity Specialist Name Role Phone Mulugeta Arnett MD Primary Care Provider Reason for Visit * Reason Onset Date Comments Advice 04/15/2024 Encounter Details Date Type Department Care Team ([facility] st Contact Info) Description 04/15/[address] [address] ADDRESS AVAILABLE Advice Allergies No known active allergiesdocumented as of this encounter (statuses as of 04/18/2024) Medications Medication Sig Dispensed Refills Start Date [...] suspected opioid overdose. Seek immediate medical attention. [email or web address]?v=[email or web address] 1 Each 3 04/12/2024 Active documented as of this encounter (statuses as of 04/18/2024) Active Problems Problem Noted Date Diagnosed Date [...] as of this encounter (statuses as of 04/18/2024) Resolved Problems Problem Noted Date Diagnosed Date Resolved Date Aggressive behavior 10/07/2023 10/15/19 Psychosis 10/07/2023 10/15/2023 Cellulitis of right leg 07/12/2023 07/3 Sepsis without acute organ dysfunction 07/12/2023 03/11/2024 Tobacco use disorder 09/03/2015 024 documented as of this encounter (statuses as of 04/18/2024) Immunizations Name Administration Dates Next Due DTaP [...] encounter Miscellaneous Notes * Telephone Encounter - Soledad Roberts MED ASSIST - 04/15/2024 3:31 PM EDT PT came to clinic with left sided numbness, asking for an appointment, one was made for 5:[address] Duke. I spoke with Dr. Duke and he advised for pt to go to the Emergency Department. I relayed the information to the PT. documented in this encounter Plan of Treatment Upcoming Encounters Date Type Department Care Team (Late st Contact Info) Description 05/07/2024 2:10 PM EDT Office Visit Optometry, [place] [address] [place] [address] Greg Reddy Jr., OD [address] [place] [address] 06/18/2024 10:00 AM EST [place] [address] [place] [address] Rianna Batista MD [address] [place] [address] 08/05/2024 2:40 PM EST Office Visit Family Practice, [place] [address] [address] Stacy Hopson CRNP [address] [address] Health Maintenance Due Date Last Done Comments DISCUSS TOBACCO CESSATION (R EFER TO SMARTSET #[id number]) 1999 Pneumococcal Vaccine: Pediat rics (0 to [...] and were consensually agreed upon. Care Teams Data Integrity Specialist Relationship Specialty Start Date End Date Mulugeta Arnett MD [address] [phone] PCP - General Family Medicine 07/16/23 documented as of this encounter
--- OUTSIDE RECORDS SUMMARY | 2024-06-18 10:36 | External Medical Summary ---
Author Name Unknown Address Unknown Organization K1F:LABORATORY [facility] - [address] [facility] [address] Laboratory Report Ordering Provider Test Date Status LESTER HARMAN 04/20/2024 18:15:33 Final Observation Date Value Abnormality Reference (Units ) Status Color of Urine by Auto 04/20/2024 18:15:33 Yellow Light Yellow, Yellow, Dark Yellow Final Clarity, Urine 04/20/2024 18:15:33 Clear Clear Final Glucose [Mass/volume] in Urine by Automated test strip 04/20/2024 18:15:33 Negative Negative (mg/dL) Final Bilirubin.total [Presence] in Urine by Automated test strip 04/20/2024 18:15:33 Negative Negative Final Ketones [Mass/volume] in Urine by Automated test strip 04/20/2024 18:15:33 Trace Abnormal Negative (mg/dL) Final Specific gravity, Urine 04/20/2024 18:15:33 1.025 1.003-1.030 Final Hemoglobin [Presence] in Urine by Automated test strip 04/20/2024 18:15:33 Negative Negative Final pH, Urine 04/20/2024 18:15:33 6.0 5.0-7.5 (Units) Final Protein [Mass/volume] in Urine by Automated test strip 04/20/2024 18:15:33 Negative Negative (mg/dL) Final Urobilinogen [Mass/volume] in Urine by Automated test strip 04/20/2024 18:15:33 0.2 0.2, 1.0 (mg/dL) Final Nitrite [Presence] in Urine by Automated test strip 04/20/2024 18:15:33 Negative Negative Final Leukocyte esterase [Presence] in Urine by Automated test strip 04/20/2024 18:15:33 Negative Negative Final RBC, Urine 04/20/2024 18:15:33 0-2 0-2 (/HPF) Final WBC, Urine 04/20/2024 18:15:33 0-2 0-2 (/HPF) Final Bacteria [#/area] in Urine sediment by Microscopy high power field 04/20/2024 18:15:33 0-25 0-25 (/HPF) Final Mucus, Urine 04/20/2024 18:15:33 Many Abnormal None (/HPF) Final Crystals.amorphous [#/area] in Urine sediment by Microscopy high power field 04/20/2024 18:15:33 Many Abnormal None (/HPF) Final Performing Location LABORATORY [facility] - [facility] [place] [address]
--- OUTSIDE RECORDS SUMMARY | 2024-06-18 10:36 | External Medical Summary ---
Author Name Unknown Address Unknown Organization K01:LABORATORY [facility] [place] [address] [facility] [address] Laboratory Report Ordering Provider Test Date Status LESTER HARMAN 04/20/2024 18:15:33 Final Cutoff Concentration:
D rug Level
THC-COOH 10 ng/mL

This test was developed and its performance characteristics determined by [employer]. It has not been cleared or approved by the US Food and Drug Administration.
null Observation Date Value Abnormality Reference (Units ) Status METHODOLOGY 04/20/2024 18:15:33 LC-MS/MS Final Cannabinoids, Urine confirmatory 04/20/2024 18:15:33 59 Above high normal Negative (ng/mL) Final Performing Location LABORATORY [facility] - [address] [facility] [address]
--- OUTSIDE RECORDS SUMMARY | 2024-06-18 10:36 | External Medical Summary | Summary of Care ---
Author Name Unknown Organization [facility] Address [address] [place] [address] Phone [phone] Care Team Providers Care Freight Rate Analyst Name Role Phone Mulugeta Arnett MD Primary Care Provider Encounter Details Date Type Department Care Team ([facility] st Contact Info) Description 04/14/2024 Population Health External Data Unspecified Department Allergies No known active allergiesdocumented as of this encounter (statuses as of 04/14/2024) Medications Medication Sig Dispensed Refills Start Date [...] suspected opioid overdose. Seek immediate medical attention. [email or web address]/[email or web address]?v=v2 [email or web address] 1 Each 3 04/12/2024 Active documented as of this encounter (statuses as of 04/14/2024) Active Problems Problem Noted Date Diagnosed Date [...] as of this encounter (statuses as of 04/14/2024) Resolved Problems Problem Noted Date Diagnosed Date Resolved Date Aggressive behavior 10/07/2023 10/15/19 24 Psychosis 10/07/2023 10/15/2023 Cellulitis of right leg 07/12/2023 07/3 Sepsis without acute organ dysfunction 07/12/2023 03/11/2024 Tobacco use disorder 09/03/2015 024 documented as of this encounter (statuses as of 04/14/2024) Immunizations Name Administration Dates Next Due DTaP [...] Description 05/07/2024 2:10 PM EDT [place] 16 [place] [address] Greg Reddy Jr., OD 16 [place] [address] 06/18/2024 10:00 AM EST Office Visit Cardiology, [place] [address] [place] [address] Rianna Batista MD 400 [place] [address] 08/05/2024 2:40 PM EST Office Visit Family Practice, [place] [address] [facility] [place] [place] [phone] Stacy Hopson CRNP 21 [facility] [place] [phone] Health Maintenance Due Date Last Done Comments DISCUSS TOBACCO CESSATION (R EFER TO SMARTSET #[id number]) 1999 Pneumococcal Vaccine: Pediat rics (0 to [...] and were consensually agreed upon. Care Teams Freight Rate Analyst Relationship Specialty Start Date End Date Mulugeta Arnett MD [address] [place] [address] PCP - General Family Medicine 07/16/23 documented as of this encounter
--- OUTSIDE RECORDS SUMMARY | 2024-06-18 10:36 | External Medical Summary ---
Author Name Unknown Address Unknown Organization K1F:LABORATORY [facility] - [address] [facility] [place] [address] Laboratory Report Ordering Provider Test Date Status LESTER HARMAN 04/20/2024 15:31:18 Final Observation Date Value Abnormality Reference (Units ) Status SYNC LEUKOCYTES IN BLOOD BY AUTOMATED COUNT 04/20/2024 15:31:18 13.79 Above high normal 4.00-10.80 (K/uL) Final Segs 04/20/2024 15:31:18 81.2 Above high normal 40.0-75.0 (%) Final Lymphs % 04/20/2024 15:31:18 13.9 Below low normal 18.0-42.0 (%) Final Monos 04/20/2024 15:31:18 3.1 1.0-11.0 (%) Final Eosinophils 04/20/2024 15:31:18 1.0 0.0-6.0 (%) Final Basos 04/20/2024 15:31:18 0.4 0.0-2.0 (%) Final Immature Granulocyte, Percent 04/20/2024 15:31:18 0.4 0.0-2.0 (%) Final Absolute Segs 04/20/2024 15:31:18 11.20 Above high normal 1.80-7.70 (K/uL) Final Lymphs, absolute 04/20/2024 15:31:18 1.91 1.00-4.80 (K/ul) Final Monos, Abs 04/20/2024 15:31:18 0.43 0.00-1.10 (K/uL) Final Eos, Abs 04/20/2024 15:31:18 0.14 0.00-0.70 (K/uL) Final Basos, Abs 04/20/2024 15:31:18 0.06 0.00-0.20 (K/uL) Final Immature Granulocytes, Number 04/20/2024 15:31:18 0.05 0.00-0.20 (K/uL) Final Performing Location LABORATORY [facility] - [facility] [place] [address]. [place] [address]
--- OUTSIDE RECORDS SUMMARY | 2024-06-18 10:36 | External Medical Summary ---
Author Name Unknown Address Unknown Organization K1F:LABORATORY [facility] - [address] [place] [address] Laboratory Report Ordering Provider Test Date Status LES ADAM 04/12/2024 17:17:00 Final Observation Date Value Abnormality Reference (Units ) Status WBC, Total 04/12/2024 17:17:00 9.75 4.00-10.80 (K/uL) Final RBC 04/12/2024 17:17:00 4.93 4.50-5.25 (M/uL) Final Hemoglobin 04/12/2024 17:17:00 15.1 14.0-16.8 (g/dL) Final HCT 04/12/2024 17:17:00 44.6 40.0-48.4 (%) Final MCV 04/12/2024 17:17:00 90.5 82.0-99.5 (fL) Final MCH 04/12/2024 17:17:00 30.6 27.0-34.0 (pg) Final MCHC 04/12/2024 17:17:00 33.9 32.0-36.0 (g/dL) Final RDW 04/12/2024 17:17:00 13.4 11.5-15.5 (%) Final Platelets 04/12/2024 17:17:00 240 140-400 (K/uL) Final MPV 04/12/2024 17:17:00 9.2 6.6-11.1 (fL) Final Nucleated erythrocytes/100 leukocytes [Ratio] in Blood by Automated count 04/12/2024 17:17:00 0 <=0 (/100 WBCs) Final Performing Location LABORATORY [facility] - [address] [place] [address]
--- OUTSIDE RECORDS SUMMARY | 2024-06-18 10:37 | External Medical Summary | Continuity of Care Document ---
Author Name Unknown Organization [facility] Address [address] [place] [id number] Care Team Providers Care Commodities Broker Name Role Phone Edwin Figueroa Primary Care Physician [phone] [facility] [id number] Date(s): 03/19/24 - 03/20/24 [facility] [address] [place] [id number] [place] Encounter Diagnosis Anxiety(Discharge Diagnosis) - 03/19/24 Methamphetamine use(Discharge Diagnosis) - 03/19/24 Other stimulant abuse, uncomplicated(Final) - Anxiety disorder, unspecified(Final) - Other chest pain(Final) - Discharge Disposition: Left Against Medical Advice Attending Physician: MD Renata, Kishan Ibrahim Allergies, Adverse Reactions, Alerts No Known Allergies Functional Status 03/19/24 History of Fall in Last 3 Months Ramirez N o Presence of Secondary Diagnosis Ramirez No Use of Ambulatory Aid Ramirez None/bedrest /nurse assist IV/Heparin Lock Fall Risk Ramirez No Gait/Transferring Fall Risk Ramirez Normal /bedrest/immobile Mental Status Fall Risk Ramirez Oriented t o own ability Ramirez Fall Risk Score 0 Ramirez Fall Risk No Risk 03/19/24 Speech Pattern Clear Medications gabapentin 300 mg oral capsule Start: 03/20/24 9:01:00 AM EDT, 1 cap, PO, bid, as stated by patient Start Date: 03/20/24 Status: Ordered Subutex 8 mg sublingual tablet Start: 03/20/24 9:05:00 AM EDT, 3 tab, SL, Daily, as stated by patient Start Date: 03/20/24 Status: Ordered Problem List Diagnosis Diagnosis Type Effective Dates Health Status Clinical Service Informant Methamphetamine use Discharge Diagnosis 03/19/24 Non-Specified Anxiety Discharge Diagnosis 03/19/24 Non-Specified Results Laboratory List Name Date Drug Screen Urine.([facility]) 03/19/24 Urinalysis with Microscopic if Indicatd. 03/19/24 Acetaminophen Level. 03/19/24 Alcohol Level. 03/19/24 Automated Differential. 03/19/24 C-Reactive Protein. (CRP.) 03/19/24 CBC w/ Diff. 03/19/24 Comprehensive Metabolic Panel. (CMP.) 03/19/24 Creatine Kinase. (CPK.) 03/19/24 D-Dimer. 03/19/24 Erythrocyte Sedimentation Rate.. 03/19/24 Lactic Acid. 03/19/24 Magnesium Level. 03/19/24 NT-Pro BNP. (BNP, NT-Pro.) 03/19/24 Phosphorus Level. 03/19/24 Salicylate Level. 03/19/24 Thyroid Stimulating Hormone. (TSH .) 03/19 Troponin T (5th Gen). 03/19/24 SARS-CoV2/FLU A/B and RSV by PCR. (COVID -19/FluAB/RSV.) 03/19/24 Most recent to oldest [Reference Range]: 1 CReacProt [<=0.49 mg/dL] <0.30 mg/dL (03/19/24 8:07 PM) Troponin T (5th Gen) [0-22 ng/L] <6 ng/L (03/19/24 8: PM) eGFR CKD-EPI [>=60 mL/min/1.73 m2] >90 m L/min/1.73 m2 (03/19/24 8:07 PM) U Hydrocodone Scr [Not Detected] Not Det ected 1 (03/19/24 9:44 PM) Methadone (u) [Not Detected] Not Detecte d (03/19/24 9:44 PM) U Fentanyl Scr Not Detected 2 (03/19/24 9:44 PM) Estimated CrCl 145.53 mL/min (03/19/24 9:05 PM) Lactate (kevin) [0.5-2.2 mmol/L] 1.9 mmol/ L (03/19/24 8:07 PM) RDW-CV [11.5-14.2 %] 13.7 % (03/19/24 8: PM) RDW-SD 44 *NA* (03/19/24 8: PM) Nuc RBC Relative Count 0 /100 WBCs *NA* (03/19/24 8:07 PM) Nuc RBC Abs Count 0.00 K/uL *NA* (03/19/24 8:07 PM) D-Dimer Qnt [<=0.53 ug/mL FEU] 0.57 ug/m L FEU 3 *HI* (03/19/24 8:07 PM) Salicylate Lvl [<=19.9 mg/dL] <1.0 mg/dL (03/19/24 8:07 PM) NT ProBNP [<=124 pg/mL] 41 pg/mL (03/19/24 8:07 PM) Oxycodone (u) [Not Detected] Not Detecte d (03/19/24 9:44 PM) U THC Screen [Not Detected] Not Detected (03/19/24 9:44 PM) Ascorbic Acid (u) [Negative] Negative (03/19/24 9:44 PM) Phosphorus Level. [2.5-4.5 mg/dL] 2.2 mg /dL *LOW* (03/19/24 8:07 PM) CO2 [22-29 mmol/L] 26 mmol/L (03/19/24 8:07 PM) Ethanol Level. [<=10.1 mg/dL] <10.0 mg/d L (03/19/24 8:07 PM) MPV [9.0-12.2 fL] 9.4 fL (03/19/24 8:07 PM) Immature Gran% 0.5 % *NA* (03/19/24 8: PM) Neut% 82.2 % *NA* (03/19/24 8:07 PM) Lymph% 11.6 % *NA* (03/19/24 8:07 PM) [place]% 5.4 % *NA* (03/19/24 8:07 PM) Baso% 0.2 % *NA* (03/19/24 8:07 PM) Eos% 0.1 % *NA* (03/19/24 8:07 PM) Immat Gran, Abs [0.00-0.40 K/uL] 0.06 K/ uL (03/19/24 8:07 PM) Neut, Abs [2.00-7.70 K/uL] 10.51 K/uL *HI* (03/19/24 8:07 PM) Lymph, Abs [1.00-3.40 K/uL] 1.48 K/uL (03/19/24 8:07 PM) [place], Abs [0.00-1.00 K/uL] 0.69 K/uL (03/19/24 8:07 PM) Baso, Abs [0.00-0.10 K/uL] 0.02 K/uL (03/19/24 8:07 PM) Eos, Abs [0.00-0.50 K/uL] 0.01 K/uL (03/19/24 8:07 PM) Acetaminophen [10.0-30.0 ug/mL] <5.0 ug/ mL *LOW* (03/19/24 PM) Anion Gap [5-14 mmol/L] 14 mmol/L (03/19/24 8:07 PM) Alb [3.5-5.2 g/dL] 4.6 g/dL (03/19/24 8: PM) Alk Phos [40-130 unit/L] 81 unit/L (03/19/24 8:07 PM) ALT [0-41 unit/L] 38 unit/L (03/19/24 8:07 PM) Amphetamines(u) [Not Detected] Presumpti ve Pos *Abnormal* (03/19/24 9:44 PM) Appear (u) Clear (03/19/24 9:44 PM) AST [0-40 unit/L] 18 unit/L (03/19/24 8:07 PM) Benzodiazepines(u) [Not Detected] Not De tected (03/19/24 9:44 PM) Bili (u) [Negative] Negative (03/19/24 9:44 PM) BUN [6-23 mg/dL] 19 mg/dL (03/19/24 8:07 PM) Ca [8.4-10.2 mg/dL] 9.8 mg/dL (03/19/24 8:07 PM) CPK [39-308 unit/L] 41 unit/L (03/19/24 8:07 PM) Cl- [98-107 mmol/L] 102 mmol/L (03/19/24 8:07 PM) Cocaine(u) [Not Detected] Not Detected (03/19/24 9:44 PM) Cret [0.70-1.30 mg/dL] 0.75 mg/dL (03/19/24 8: PM) ESR [<=15 mm/hr] 21 mm/hr *HI* (03/19/24 8:07 PM) Glu [74-109 mg/dL] 141 mg/dL *HI* (03/19/24 8: PM) Hct [35.0-44.0 %] 42.0 % (03/19/24 8: PM) Hgb [13.0-17.0 g/dL] 14.4 g/dL (03/19/24 8:07 PM) RSV, Rapid Antigen [Negative] Negative (03/19/24 6:38 PM) Influenza Type A, Rapid Antigen [Negativ e] Negative 4 (03/19/24 6:38 PM) Influenza Type B, Rapid Antigen [Negativ e] Negative (03/19/24 6:38 PM) K [3.5-5.1 mmol/L] 4.0 mmol/L (03/19/24 8:07 PM) Ketones [Negative mg/dL] Negative mg/dL (03/19/24:44 PM) Leuk Est [Negative] Negative (03/19/24:44 PM) MCH [28.0-33.0 pg] 30.1 pg (03/19/24 8: PM) MCHC [32.0-36.0 g/dL] 34.3 g/dL (03/19/24 8: PM) MCV [81.0-96.0 fL] 87.9 fL (03/19/24 8: PM) Mg [1.6-2.6 mg/dL] 1.8 mg/dL (03/19/24 8:07 PM) Na [136-145 mmol/L] 142 mmol/L (03/19/24 8:07 PM) Nitrite (u) [Negative] Negative (03/19/24 9:44 PM) Opiates(u) [Not Detected] Not Detected (03/19/24:44 PM) Plts [150-350 K/uL] 271 K/uL (03/19/24 8:07 PM) RBC [4.40-5.60 M/uL] 4.78 M/uL (03/19/24 8:07 PM) COVID-19 Coronavirus PCR [Not Detected] Not Detected 5 (03/19/24 6:38 PM) COVID-19 Source Nasopharyngeal (03/19/24 6:38 PM) T Bili [0.0-1.2 mg/dL] <0.1 mg/dL (03/19/24 8:07 PM) Prot [6.4-8.3 g/dL] 8.0 g/dL (03/19/24 8:07 PM) TSH [0.30-4.20 uIU/mL] 1.31 uIU/mL (03/19/24 8:07 PM) Color (u) Yellow (03/19/24 9:44 PM) Glu (u) [Negative mg/dL] Negative mg/dL (03/19/24 9:44 PM) Hgb (u) [Negative] Negative (03/19/24 9:44 PM) pH (u) [5.0-8.0] 6.0 (03/19/24 9:44 PM) Prot (u) [Negative mg/dL] Negative mg/dL (03/19/24 9:44 PM) RBC (u) 0-2 /HPF *NA* (03/19/24 9:44 PM) Urobili [Normal mg/dL] Normal mg/dL (03/19/24 9:44 PM) SG [1.003-1.030] 1.035 *HI* (03/19/24 9:44 PM) WBC (u) [None /HPF] 0-2 /HPF (03/19/24 9:44 PM) WBC [4.00-10.40 K/uL] 12.77 K/uL *HI* (03/19/24 8:07 PM) Congregate Care Setting-QST Not Given (03/19/24 6:38 PM) Employed in Healthcare?-QST No (03/19/24 6:38 PM) Ethnicity-QST Not Given (03/19/24 6:38 PM) First Test?-QST Not Given (03/19/24 6:38 PM) Hospitalized?-QST Not Given (03/19/24 6:38 PM) ICU?-QST No (03/19/24 6:38 PM) ?(QST) Not Given (03/19/24 6:38 PM) Race-QST Not Given (03/19/24 6:38 PM) Symptomatic?-QST Yes (03/19/24 6:38 PM) 1Interpretive Data: Drug Level Amphetamines 500 ng/mL Benzodiazepines 100 ng/mL Cannabinoids 50 ng/mL Cocain Metabolite 150 ng/mL Hydrocodone 100 ng/mL Methadone Metabolite 100 ng/mL Morphine/ Codeine 300 ng/mL Oxycodone 100 ng/mL The above screening results are presumptive and can only be used for medical purposes. Confirmatorytesting is available upon request. Intended for medical treatment only. 2Interpretive Data: Fentanyl Assay Cutoff >=5 ng/mL The above screening results are presumptive and can only be used for medical purposes. Confirmatorytesting is available upon request. Intended for medical treatment only. 3Interpretive Data: The clinical d-dimer cut-off value of <0.5 ug/mL FEU has been established by the jacquard card lacer for the exclusion of pulmonary embolism and/or deep venous thrombosis in outpatients with low pre-test probability. 4Result Comment: No Influenza A Detected. A negative result does not rule out the possibility of influenza infection as the sensitivity of this test is approximately 98%. Patients being admitted to [facility] should have the RVP assay ordered. 5Interpretive Data: This assay has been granted an Emergency Use Authorization (EUA) by the U.S. Food and drug Administration. The performance of the assay (Regenesance) has been verified by the [facility] laboratory. Reported to [facility] Orders for Microbiology Reports Name Date Culture Blood. 03/19/24 Culture Blood. 03/19/24 Microbiology Reports TEST:Culture Blood. STATUS:Order in Progress BODY SITE: SOURCE:Peripheral Blood COLLECTED DATE/TIME:03/19/24 9:01 PM PRELIMINARY REPORT No growth at 3 days TEST:Culture Blood. STATUS:Order in Progress BODY SITE: SOURCE:Peripheral Blood COLLECTED DATE/TIME:03/19/24 8:59 PM PRELIMINARY REPORT No growth at 3 days Radiology Reports * Exam Date Time Procedure Performing Provider Status 03/19/24 9:[address] Chest - PE Marisol Schwartz; Final Notes: (CT Chest - PE) Reason For Exam: cp Report EXAM: CTA CHEST WITH CONTRAST HISTORY: cp; Technologist Notes: Pt to ED with chief complaint of chest pain and hearing voices about going to assisted. Pt denies SI or HI. Pt denies voices telling him to hurt anyone or himself. Pt denies having hx of voices before. Pt r. Pt anxious in triage.; IV Contrast Volume in ml: 75.00; Contrast Type (IV): Omnipaque 350 COMPARISON: None available. TECHNIQUE: CTA chest with intravenous contrast was performed. MIP images were obtained and reviewed. CONTRAST: 75 mL Omnipaque 350 injected intravenously. Number of previous CTs and/or Cardiac NM exams performed in last 12 months (per [facility] MIPS Quality Measure 360): 0 FINDINGS: PULMONARY ARTERIES: No suspicious filling defects in the visualized portions of the pulmonary arteries. No enlargement of the main pulmonary artery. AORTA: No aortic aneurysm or dissection. HEART: Normal size without pericardial effusion. MEDIASTINUM/PRADEEP: No lymphadenopathy. CHEST WALL/AXILLA: Unremarkable. LUNGS/PLEURA: Lungs are clear. Central airways are clear. No pleural effusion. No pneumothorax. UPPER ABDOMEN: Unremarkable. MUSCULOSKELETAL: Slight chronic anterior wedging of the T12 and L1 vertebral bodies. IMPRESSION: No evidence for pulmonary emboli. No acute process. Workstation ID: [id number] Final Dictated by:MD Ansari Elias Dictated DT/TM:03/19/2024 10:23 Signed by:MD Ansari Elias Signed (Electronic Signature):03/19/2024 10:21 Vital Signs Most recent to oldest [Reference Range]: 1 2 3 Height 172 cm (03/19/24 6:12 PM) Patient Weight 68.95 kg (03/19/24 6:12 PM) Body Mass Index 23.31 kg/m2 (03/19/24 6:12 PM) Temperature [36.5-37.9 DegC] 37.4 DegC (03/19/24 9:00 PM) 36.8 DegC (03/19/24 6:12 PM) Heart Rate 128 bpm (03/19/24 11:00 PM) 131 bpm (03/19/24 10:00 PM) 137 bpm (03/19/24 9:00 PM) Respiratory Rate 20 br/min (03/19/24 11:00 PM) 19 br/min (03/19/24 10:00 PM) 20 br/min (03/19/24 9:00 PM) Blood Pressure 136/89mmHg (03/19/24 11:00 PM) 136/90mmHg (03/19/24 10:00 PM) 113/68mmHg (03/19/24 9:00 PM) Cuff Pulse Pressure 45 mmHg (03/19/24 9:00 PM) Social History Social History Type Response Smoking Status Current every day he edilberto smoker Sex Male Sex Representation Male (finding) Cardiology * MD Palm Priya: VERIFY, PERFORM Event Display: EKG Authored Date: PROCEDURE DATE: [id number] Sinus tachycardia Incomplete RBBB ST junctional depression is nonspecific Comparison Summary: No significant change Summary: Borderline ECG Compared with: 03/19/2024 6:23 PM Electronically Signed By: Arpita Dumont MD Date: 03/19/2024 Time: 21:20 * MD Palm Priya: VERIFY, PERFORM Event Display: EKG Authored Date: * MD Palm Priya: VERIFY, PERFORM Event Display: EKG Authored Date: PROCEDURE DATE: [id number] SINUS TACHYCARDIA Rightward axis RIGHT BUNDLE BRANCH BLOCK Nonspecific ST T abnormality Comparison Summary: No serial comparison made Summary: Abnormal ECG Electronically Signed By: Arpita Dumont MD Date: 03/19/2024 Time: 21:19 * MD Palm Priya: VERIFY, PERFORM Event Display: EKG Authored Date: Emergency department Summary note * MD Yanez Paul W: MODIFY, MODIFY, PERFORM, MODIFY, MODIFY, MODIFY, MODIFY, MODIFY Event Display: ED Summary Authored Date: Basic Information Time Seen: MD Yanez Paul W 03/19/2024 18:37 Chief Complaint Pt to ED with chief complaint of chest pain and hearing voices about going to assisted. Pt denies SI orHI. Pt denies voices telling him to hurt anyone or himself. Pt denies having hx of voices before. Pt r. Pt anxious in triage. History of Present Illness 23-year-old male presents emergency departmentfor complaints of hearing voicesanxiousness. Patient reports that he was in skilled nursing he was off medications while he is in skilled nursing he has not establish care since leaving skilled nursing. [facility] they were concerned that he may have hadsepsis and endocarditis at that time but he left the hospital withoutcompleting treatment or evaluation he reports he was notseen or evaluatedby a medical facility while he was inprison. He denies any fevers or chills. Denies any chest pain or short of breath. He is noted to be significantly tachycardic at triage. Patient denies drug or alcohol use. No history of alcohol withdrawal syndrome. Hehas not been drinking he denies anyamphetamine, cocaine or methamphetamine use Review of Systems No fevers or chills, no cough or sputum, no nausea vomiting diarrhea, no urinary symptomsno chestpain or short of breath. Positive anxiety, no SIno HI. Physical Exam Vitals & Measurements T:36.8C HR:154(Monitored) RR:24 SpO2:98% Oxygen Therapy:Room Air HT:172cm WT:68.950kg(Dosing) WT:68.95kg BMI:23.31 23-year-old male no acute distress Head atraumatic normocephalic Eyes PERRL EOMI anicteric Oropharynx shows no erythema or exudate Neck is supple Chest stable nontender Heart regularrhythm, tachycardic no murmur gallop or rub Lungs clear to auscultation Abdomen soft nontender Extremities full range of motion no swelling oredema Skin warm and dry no rashes Neuro conscious alert cranial nerves are intact strength normal sensation is normal Psychiatric anxious, no SI, positive auditory hallucinations, no visual hallucinations Medical Decision Making 23-year-old male presenting the emergency department for behavioral health evaluation noted to be significantly tachycardic at triage,initial EKG from triage appeared to have limb lead reversal with aextreme right axis deviationrepeat EKG with attention to limb leads confirmed normal axisinc omplete right bundle jaswinder block is noted. At this point time given his questionable history ofinfectious etiology in June but notany follow-up treatment we will go ahead and getEKG cardiac enzymes dimerblood cultures lactic acid inflammatory markers,in the interim he is treated with IV fluids will consider treatment with benzodiazepine urine drug screenis pending along with aspirin Tylenol levelstachycardia may be related to anxietyalso question possibility of substance abuse. Reexamination/Reevaluation 2044patient's heart rate is improved to 130s with firstliter of IV fluid infusing. D-dimer iselevated CT PE ordered atient CT PE is negative for PE,patient's heart rate improved further after finishing IV fluids and IV Ativan urine drug screen is positive for amphetamines patient admitted to his primary nursehe did methamphetamine I suspectthatlarge part of his tachycardia at this timewhite count is mildly elevated but inflammatory markers are otherwise normal lactic acid is normalat this time low concern for infectious etiology or endocarditis as he does not have amurmur he does not have fever or white count or other symptoms at this timewe will go ahead andmedically clear patientforcrisis evaluationI am not certain there is grounds for voluntary admission if not consider warm handoff evaluation as I think his problems are predominantlylikely related to substance use and his hallucinations may be related to his methamphetamine use. 2325patient seen by crisis no grounds for voluntary 201 admission feel symptoms are predominantlyrelated to his substance abuse. Patient agreeable to warm handoff warm handoff contacted at this time. 0007warm handoff came and saw patient at the bedside declinedwarm handoff evaluation wants to be discharged at this time patient discharged follow- upoutpatient advised to call warm handoff if he wants further treatmentfor his substance use. Assessment/Plan Anxiety Methamphetamine use Patient Education Generalized Anxiety Disorder, Adult Amphetamine Use Disorder Follow Up With When Contact Information Edwin Figueroa Within Call physician within next business day [address] [phone] Business (1) Additional Instructions: Medication Administration Administered: Medications: NS Bolus, 1000 mL, Bolus-IV (03/19/2024 20:08 EDT) Ativan, 1 mg, PO (03/19/2024 20:54 EDT) Omnipaque 350, 75 mL, contrast-IV (03/19/2024 21:20 EDT) nicotine patch., 21 mg, transdermal (03/19/2024 22:17 EDT) Allergies NKA Lab Results Chemistry LATEST RESULTS Na 03/19/24 20:07 142 K 03/19/24 20:07 4.0 Cl- 03/19/24 20:07 102 CO2 03/19/24 20:07 26 Anion Gap 03/19/24 20:07 14 BUN 03/19/24 20:07 19 Cret 03/19/24 20:07 0.75 Estimated CrCl 03/19/24 21:05 145.53 eGFR CKD-EPI 03/19/24 20:07 >90 Glu 03/19/24 20:07 141 High Ca 03/19/24 20:07 9.8 Mg 03/19/24 20:07 1.8 Phosphorus Level. 03/19/24 20:07 2.2 Low Lactate (kevin) 03/19/24 20:07 1.9 CBC LATEST RESULTS WBC 03/19/24 20:07 12.77 High Hgb 03/19/24 20:07 14.4 Hct 03/19/24 20:07 42.0 RBC 03/19/24 20:07 4.78 MCV 03/19/24 20:07 87.9 MCHC 03/19/24 20:07 34.3 MCH 03/19/24 20:07 30.1 RDW-CV 03/19/24 20:07 13.7 RDW-SD 03/19/24 20:07 44 Plts 03/19/24 20:07 271 Nuc RBC Relative Count 03/19/24 20:07 0 Nuc RBC Abs Count 03/19/24 20:07 0.00 MPV 03/19/24 20:07 9.4 Immature Gran% 03/19/24 20:07 0.5 Neut% 03/19/24 20:07 82.2 Lymph% 03/19/24 20:07 11.6 [place]% 03/19/24 20:07 5.4 Baso% 03/19/24 20:07 0.2 Eos% 03/19/24 20:07 0.1 Immat Gran, Abs 03/19/24 20:07 0.06 Neut, Abs 03/19/24 20:07 10.51 High Lymph, Abs 03/19/24 20:07 1.48 [place], Abs 03/19/24 20:07 0.69 Baso, Abs 03/19/24 20:07 0.02 Eos, Abs 03/19/24 20:07 0.01 Coagulation LATEST RESULTS D-Dimer Qnt 03/19/24 20:07 0.57 High Respiratory Therapy LATEST RESULTS pH Kevin 03/19/24 20:07 7.37 pCO2 Kevin 03/19/24 20:07 51 pO2 Kevin 03/19/24 20:07 48 HCO3 Kevin 03/19/24 20:07 29.6 Base Excess Kevin 03/19/24 20:07 3.1 Drug Monitor LATEST RESULTS Acetaminophen 03/19/24 20:07 <5.0 Low Salicylate Lvl 03/19/24 20:07 <1.0 Liver/GI LATEST RESULTS ALT 03/19/24 20:07 38 T Bili 03/19/24 20:07 <0.1 Alk Phos 03/19/24 20:07 81 AST 03/19/24 20:07 18 Nutrition LATEST RESULTS Alb 03/19/24 20:07 4.6 Prot 03/19/24 20:07 8.0 Cardiac/Lipi LATEST RESULTS Troponin T (5th Gen) 03/19/24 20:07 <6 CPK 03/19/24 20:07 41 NT ProBNP 03/19/24 20:07 41 Endocrine LATEST RESULTS TSH 03/19/24 20:07 1.31 Rheumatology LATEST RESULTS CReacProt 03/19/24 20:07 <0.30 ESR 03/19/24 20:07 21 High Immunology LATEST RESULTS Influenza Type A, Rapid Antigen 03/19/24 18:38 Negative Influenza Type B, Rapid Antigen 03/19/24 18:38 Negative COVID-19 Source 03/19/24 18:38 Nasopharyngeal COVID-19 Coronavirus PCR 03/19/24 18:38 Not Detected RSV, Rapid Antigen 03/19/24 18:38 Negative Congregate Care Setting-QST 03/19/24 18:38 Not Given Employed in Healthcare?-QST 03/19/24 18:38 No Ethnicity-QST 03/19/24 18:38 Not Given First Test?-QST 03/19/24 18:38 Not Given Hospitalized?-QST 03/19/24 18:38 Not Given ICU?-QST 03/19/24 18:38 No ?(QST) 03/19/24 18:38 Not Given Race-QST 03/19/24 18:38 Not Given Symptomatic?-QST 03/19/24 18:38 Yes Toxicology LATEST RESULTS Ethanol Level. 03/19/24 20:07 <10.0 Amphetamines(u) 03/19/24 21:44 Presumptive Pos Abnormal Benzodiazepines(u) 03/19/24 21:44 Not Detected Cocaine(u) 03/19/24 21:44 Not Detected Opiates(u) 03/19/24 21:44 Not Detected Oxycodone (u) 03/19/24 21:44 Not Detected U Fentanyl Scr 03/19/24 21:44 Not Detected Methadone (u) 03/19/24 21:44 Not Detected U THC Screen 03/19/24 21:44 Not Detected U Hydrocodone Scr 03/19/24 21:44 Not Detected Urine LATEST RESULTS Color (u) 03/19/24 21:44 Yellow Appear (u) 03/19/24 21:44 Clear Glu (u) 03/19/24 21:44 Negative Bili (u) 03/19/24 21:44 Negative Ketones 03/19/24 21:44 Negative SG 03/19/24 21:44 1.035 High Hgb (u) 03/19/24 21:44 Negative pH (u) 03/19/24 21:44 6.0 Prot (u) 03/19/24 21:44 Negative Urobili 03/19/24 21:44 Normal Nitrite (u) 03/19/24 21:44 Negative Leuk Est 03/19/24 21:44 Negative Ascorbic Acid (u) 03/19/24 21:44 Negative WBC (u) 03/19/24 21:44 0-2 RBC (u) 03/19/24 21:44 0-2 Diagnostic Results (03/19/2024 21:[address] Chest - PE) IMPRESSION: No evidence for pulmonary emboli. No acute process. [1] ECG EKG [id number] tachycardia rate of 158, right axis deviation, incomplete right bundle branchblock, nonspecific ST-T changes suspect possible limb lead reversal. No prior EKG available for comparison. Repeat EKG time 1837 with attention to limb leadssinus tachycardia rate of 159, incomplete right bundle branch block,no acute ST-T changes,axis is normal at this time. Confirming previous EKG had limb lead reversal, abnormal EKG,comparison to prior EKG from 1822 demonstratesnormalization of axis confirming limb lead reversal on prior EKG. [1]CT Chest - PE; MD Coty, Roman 03/19/2024 21:27 EDT Electronic Signature on File Electronically Reviewed/Signed by: Kishan Yanez MD Author Signature Dt/Tm:03/20/2024 01:32 AM Department of Emergency Medicine PWS Patient Care team information Care Team Personnel Name: MD Henry, Edwin Martinez Position: Referring DIRECT Member Role: Primary Care Provider Address: [address] [place] [id number] Name: Jeanna Batista RN, Aleksandra Palacios Position: RN - C Member Role: Direct Care Nurse Name: MD Renata, Kishan Ibrahim Position: Physician - Emerg Med [place] Member Role: Covering (3 days after created) Address: [address] [place] [address] [place] [address] [place]
--- OUTSIDE RECORDS SUMMARY | 2024-06-18 10:37 | External Medical Summary ---
Author Name Unknown Address Unknown Organization [facility] [employer] [facility] [employer] [facility] [address] [place] [id number] Laboratory Report Ordering Provider Test Date Status Dolly,Brentonarti 03/20/2024 10:38:00 Final Observation Date Value Abnormality Reference (Units ) Status Ethanol [Mass/volume] in Serum or Plasma 03/20/2024 11:14:17 <10.0 <=10.1 (mg/dL) Final Performing Location [facility] [employer] [address] [place] [id number]
--- OUTSIDE RECORDS SUMMARY | 2024-06-18 10:37 | External Medical Summary | Summary of Care ---
Author Name Unknown Organization [facility] Address [address] [place] [address] Phone [phone] Care Team Providers Care Fireperson Name Role Phone Mulugeta Arnett MD Primary Care Provider Encounter Details Date Type Department Care Team ([facility] st Contact Info) Description 04/04/2024 Referral Triage Care Coordination and Integration [address], [place] [phone] Catrina Benito OSA [address] [place] [address] Allergies No known active allergiesdocumented as of this encounter (statuses as of 04/04/2024) Medications Medication Sig Dispensed Refills Start Date [...] as of this encounter (statuses as of 04/04/2024) Active Problems Problem Noted Date Diagnosed Date [...] as of this encounter (statuses as of 04/04/2024) Resolved Problems Problem Noted Date Diagnosed Date Resolved Date Aggressive behavior 10/07/2023 10/15/19 24 Psychosis 10/07/2023 10/15/2023 Cellulitis of right leg 07/12/2023 07/3 Sepsis without acute organ dysfunction 07/12/2023 03/11/2024 Tobacco use disorder 09/03/2015 024 documented as of this encounter (statuses as of 04/04/2024) Immunizations Name Administration Dates Next Due DTaP Dipth/Tet/Acell Pertussis (Infanrix), Peds 03/28/2005,10/24/2000,03/22/2000,01/18,1999 HIB PRP-T, 4 Dose, PF, IM (H iberix, ActHib) 10/24/2000,03/22/2000,01/19/2000,10/18 HPV Vaccine, 4-Valent 01/03/2011 Hepatitis A, Ped/Adol., 18 y ear and below, 2-Dose 01/03/2011 Hepatitis B, 0-19 yrs 01/19/2000,1999,07/13 IPV - Polio Virus Vaccine (Inact) 2004,03/22/2000,01/19/2000,10/18 MMR - Measles/Mumps/Rubella Vaccine 03/28/2005,0 10/24/2000 Meningococcal Conjugate Vacc ine (Menactra/Menveo) 09/03/2015,01/03/2011 PPD 06/04/2023 Pneumococcal Conjugate Vacci ne, 7 Valent 01/23/2001,10/24/2000 Seasonal Influenza, Split, I IV3, With Preserve, Inj 06/10/2009 TDAP, Age 7 and older, IM [...] s 04/03/2024 Does the household have a [facility] source of income? (Household - for ages [...] as of this encounter Progress Notes * Catrina Benito OSA - 04/04/2024 5:52 PM EDT Images from the original note were not included. Order Details Procedure: POPULATION HEALTH REFERRAL OP Associated diagnoses: Z59.48,Z58.6 (ICD-10-CM) - Lack of adequate food and safe drinking water Z59.89 (ICD-10-CM) - Other problems related to housing and economic circumstances Date: 04/03/2024 Provider: Stacy Bhatti CRNP Department: [facility] Progress Note Office Visit with STACY BHATTI Order Questions Question Answer Referral Priority Within 3 days (urgent) Where should this appointment be scheduled? [facility] Role Player Services Representative Player Services Representative Referral Reason Food Resources Financial Resources Coverage Information [facility] PS[facility]CH CARVEOUT (Elapsed) Response History Effective from: 01/17/2021 Subscriber name: CortezLuis M Benefits Inquiry [facility] FAMILY/[facility] FAMILY PLAN MA-NE (E-Verified) Response History Effective from: 09/27/2023 Subscriber name: Tyler Toroty Christensen Group number: [id number] Benefits Inquiry Notes Expand All Collapse All Provider Comments 04/03/2024 4:43 PM EDT by Stacy Bhatti Is patient being transitioned from [facility] to Complex Case Management? No documented in this encounter Plan of Treatment Upcoming Encounters Date Type Department Care Team (Late st Contact Info) Description 05/07/2024 2:10 PM EDT Office Visit Optometry, [place] [address] [place] [address] Greg Reddy Jr., OD [address] [place] [address] 06/18/2024 10:00 AM EST Office Visit Cardiology, [place] [place] [address] Rianna Batista MD [address] [place] [address] 08/05/2024 2:40 PM EST Office Visit [facility], [place] [address] [place] [phone] St[facility]hatti CR[facility] [address] [place] [phone] Health Maintenance Due Date Last Done Comments DISCUSS TOBACCO CESSATION (Michelle COTE TO SMARTSET #9213) 1999 Pneumococcal Vaccine: Pediat rics (0 to 5 Years) and At-Risk Patients (6 to 64 Years) (1 of 2 - PCV) 2005 HPV (Gardasil) Vaccine (2 - Male 2-dose series) 07/06/2011 01/03/2011 DTaP,Tdap,and Td Vaccines (7 - Td or Tdap) 01/03/2021 01/03/2011, 03/28/2005, 10/24/2000, Additional history exists COVID-19 Vaccine ( - 2022-2 4 season) 2023 Influenza Vaccine (FLU shot) (#1) 2024 009 Depression Monitoring 10/14/2024 10/15/2023 Hepatitis B Vaccine Completed 01/19/2000, 1999, 1999 MENINGOCOCCAL (MENACTRA/MENVEO) Completed , 01/03/2011 documented as of this encounter Medical [...] and were consensually agreed upon. Care Teams Fireperson Relationship Specialty Start Date End Date Mulugeta Arnett MD [address] [place] [address] PCP - General Family Medicine 07/16/23 documented as of this encounter
--- OUTSIDE RECORDS SUMMARY | 2024-06-18 10:37 | External Medical Summary | Summary of Care ---
Author Name Unknown Organization [facility] Address [address] [place] [address] Phone [phone] Care Team Providers Care Meat Department Manager Name Role Phone Mulugeta Arnett MD Primary Care Provider Reason for Referral * Social Care (Within 3 days (urgent)) - Pending Review Specialty Diagnoses / Procedures Referred By Juany camargo Referred To Contact Rod Mill Tender Diagnoses Lack of adequate food and safe drinking water Other problems related to housing and economic circumstances Stacy Hopson CRNP [address] [place] [address] Referral ID Status Reason Start Date Expiration Date Visits Requested Visits Authorized [id number] Pending Review Specialty Services Required 04/03/[phone] Question Answer Referral Priority Within 3 days (urgent) Where should this appointment be scheduled? [facility] Role Sales Support Specialist Sales Support Specialist Referral Reason Food Resources, Financial Resources Comments Is patient being transitioned from [facility] to Complex Case Management? No * Evaluate & Treat - Unlimited Visits (Within 30 days (routine)) - Pending Review Specialty Diagnoses / Procedures Referred By Juany camargo Referred To Contact Cardiovascular Medicine / Cardiology Diagnoses Chest pain, unspecified type Stacy Hopson CRNP [address] [place] [address] Referral ID Status Reason Start Date Expiration Date Visits Requested Visits Authorized [id number] Pending Review Specialty Services Required 04/03/[phone] Question Answer Referral Priority Within 30 days (routine) Where should this appointment be scheduled? [facility] To which of the following clinics are you referring your patient? General Cardiology Clinic Reason for Visit * Reason Comments Acute Pt would like cardio logy referral. Encounter Details Date Type Department Care Team ([place] st Contact Info) Description 04/03/2024 4:20 PM EDT Office Visit [facility], [place] [address] [place] [phone] Stacy Hopson CRNP [address] [place] [address] Chest pain, unspecified type*; Uncomplicated asthma, unspecified asthma severity, unspecified whether persistent; Right-sided low back pain without sciatica, unspecified chronicity; Lack of adequate food and safe drinking water; Other problems related to housing and economic circumstances Allergies No known active allergiesdocumented as of this encounter (statuses as of 04/03/2024) Medications Medication Sig Dispensed Refills Start Date End Date Status Diclofenac Sodium 75 MG Oral Tablet Delayed Release (Voltaren)Indicat ions:Chronic low back pain with sciatica, sciatica laterality unspecified, unspecified back pain laterality Take 1 Tablet by mouth in the morning and 1 Tablet before bedtime. With food.. 60 Tablet 03/11/2024 Active hydrOXYzine HCl 10 MG Oral Tablet (Atarax)Indicatio [...] for Muscle spasms. 10 Tablet 04/03/2024 Active Cyclobenzaprine HCl 10 MG Oral Tablet (Flexeril) Take 1 Tablet by mouth at bedtime as needed for Muscle spasms. 10 Tablet 10/15/2023 4 Discontinued(Refi ll) predniSONE 10 MG Oral Tablet (Deltasone)Indica tions:Chronic low back pain with sciatica, sciatica laterality unspecified, unspecified back pain laterality Take 5 tabs for 2 days, 4 tabs for 2 days, 3 tabs for 2 days, 2 tabs for 2 days 1 tab for 2 days 30 Tablet 03/11/2024 4 Discontinued Cyclobenzaprine HCl 10 MG Oral Tablet (Flexeril) Take 1 Tablet by mouth at bedtime as needed for Muscle spasms. 10 Tablet 04/03/2024 4 Discontinued documented as of this encounter (statuses as of 04/03/2024) Active Problems Problem Noted Date Diagnosed Date [...] as of this encounter (statuses as of 04/03/2024) Resolved Problems Problem Noted Date Diagnosed Date Resolved Date Aggressive behavior 10/07/2023 10/15/19 24 Psychosis 10/07/2023 10/15/2023 Cellulitis of right leg 07/12/2023 07 Sepsis without acute organ dysfunction 07/12/2023 03/11/2024 Tobacco use disorder 09/03/2015 024 documented as of this encounter (statuses as of 04/03/2024) Immunizations Name Administration Dates Next Due DTaP [...] Recorded PHQ Adult Total Score 5 10/15/2023 Personal Safety Answer Date Recorded Do you feel unsafe or have concerns for your saf ety? No 07/12/2023 Do you have concerns for you r family's safety? (Household - for ages 0-17 years) Not on file 07/12/2023 Utilities Answer Date Recorded Do you have trouble paying y our heating, water, or electric bill? No 07/12/2023 Is your family able to pay t he heat, water, or electric bill? (Household - for ages 0-17 years) Not on file 07/12/2023 Does your family have access to good internet? (Household - for ages 0-17 years) Not on file 07/12/2023 Social Connections Answer Date Recorded How often do you feel lonely or isolated from those around you? (Adult - for ages 18 years and over) Not on file 01/29/2024 Transportation Needs Answer Date Record ed READ ONLY Do you have troubl e getting a ride to medical visits or work? Sometimes True 07/12/2023 Does your family have a hard time getting a ride to doctors visits? (Household - for ages 0-17 years) Not on file 07/12/2023 Has lack of transportation k ept you from medical appointments, meetings, work, or from getting things needed for daily living? Check all that apply. (Adult - for ages 18 years and over) Not on file 07/12/2023 Do you (or your family) have trouble finding or paying for a ride (transportation)? (Household - for ages 0-17 years) Not on file 07/12/2023 Housing Stability Answer Date Recorded Do you currently live in a s helter or have no steady place to sleep at night? (Adult - for ages 18 years and over) Not on file 07/12/2023 READ ONLY Do you think you a re at risk of becoming homeless? No 07/12/2023 Does your family worry about paying for your home or becoming homeless? (Household - for ages 0-17 years) Not on file 1 09/11/2022 Are you homeless or worried that you might be in the future? (Adult - for ages 18 years and over) Not on file Are you (or your family) gabrielle eless or worried that you might be in the future? (Household - for ages 0-17 years) Not on file Food Insecurity Answer Date Recorded Do you need food for this week? Yes 07/12/2023 Are you able to get enough f ood for your family? (Household - for ages 0-17 years) Not on file 07/12/2023 Does your family need food t his week? (Household - for ages 0-17 years) Not on file 07/12/2023 Do you always have enough fo od for your family? (Household - for ages 0-17 years) Not on file 07/12/2023 Sex and Gender Information Value Date Recorded Sex Assigned at Male 12/04/2023 4:41 PM EDT Gender Identity Male 12/04/2023 4:41 PM EDT Sexual Orientation Straight 12/04/2023 4: 41 PM EDT Job Start Date Occupation Industry Not on file Not on file Not on file documented as of this encounter Last Filed Vital Signs Vital Sign Reading Time Taken Comments Blood Pressure 126/74 04/03/2024 4:08 PM EDT Pulse 97 04/03/2024 4:08 PM EDT Temperature 36.2 C (97.2 F) 04/03/2024 4:08 PM ED T Respiratory Rate 18 04/03/2024 4:08 PM EDT Oxygen Saturation 98% 04/03/2024 4:08 PM EDT Inhaled Oxygen Concentration - - Weight 78 kg (171 lb 14.4 oz) 04/03/2024 4:08 PM EDT Height - - Body Mass Index 26.14 02/10/2024 7:07 AM EDT documented in this encounter Functional [...] (15 years old or older) No 10/07/19 24 Cognitive Status Response Date of Assessm ent Because of a physical, menta l, or emotional condition, do you have serious difficulty concentrating, remembering, or making decisions? (5 years old or older) No 10/07/2023 documented as of this encounter Progress Notes * Stacy Hopson CRNP - 04/03/2024 4:33 PM EDT Images from the original note were not included. History of Present Illness Luis Toro is a 23 year old male that presents for Acute (Pt would like cardiology referral.) Luis presents to the clinic reporting about a year of chest pain. He has been seen in the ER and has had negative workups completed. He has had multiple syncopal episodes related to chest pain. He is concerned because he used to inject illicit drugs and is worried that it has damaged his heart. Review of Systems Constitutional: Negative for activity change and appetite change. Cardiovascular: Positive for chest pain. Gastrointestinal: Negative for blood in stool, constipation and diarrhea. Genitourinary: Negative for difficulty urinating. Neurological: Positive for syncope. Psychiatric/Behavioral: The patient is nervous/anxious. Physical Exam BP 126/74 | Pulse 97 | Temp 36.2 C (97.2 F) (Tympanic) | Resp 18 | Wt 78 kg (171 lb 14.4 oz) | SpO2 98% | BMI 26.14 kg/m | BSA 1.93 m Physical Exam Vitals and nursing note reviewed. Constitutional: Comments: drowsy HENT: Head: Normocephalic. Right Ear: External ear normal. Left Ear: External ear normal. Nose: Nose normal. Mouth/Throat: Mouth: Mucous membranes are moist. Eyes: Pupils: Pupils are equal, round, and reactive to light. Cardiovascular: Rate and Rhythm: Normal rate and regular rhythm. Pulmonary: Effort: Pulmonary effort is normal. Abdominal: Palpations: Abdomen is soft. Skin: Capillary Refill: Capillary refill takes less than 2 seconds. Neurological: General: No focal deficit present. Mental Status: He is oriented to person, place, and time. Psychiatric: Attention and Perception: Attention normal. Mood and Affect: Mood is anxious. Speech: Speech normal. Behavior: Behavior normal. Behavior is cooperative. Thought Content: Thought content normal. Cognition and Memory: Cognition normal. Judgment: Judgment normal. I have reviewed most recent labs None Assessment and Plan Chest pain, unspecified type (Primary) - CARDIOLOGY REFERRAL OP - EXTERNAL EKG 8 TO 15 DAYS HOME ENROLLMENT; Future; Expected date: 04/04/2024 Uncomplicated asthma, unspecified asthma severity, unspecified whether persistent -albuterol PRN Wrap-Up Time: I spent a total of 20-29 minutes (exact time 20 mins) on the date of service in preparation, delivery, and documentation of the care provided to Luis Toro excluding any time spent in the performance of separately billed services. documented in this encounter Nursing Notes * Yue Powell LPN - 04/03/2024 4:05 PM EDT Chief Complaint Patient presents with Acute Pt would like cardiology referral. documented in this encounter Plan of Treatment Upcoming Encounters Date Type Department Care Team (Late st Contact Info) Description 05/07/2024 2:10 PM EDT [facility] [place] [address] Greg Reddy Jr., OD [address] [place] [phone] Scheduled Orders Name Type Priority Associated Diagnoses Orde r Schedule EXTERNAL EKG 8 TO 15 DAYS HOME ENROLLMENT Holter Routine Chest pain, unspecified type Expected: 04/04/2024 (Approximate), Expires: 04/03/2025 Scheduled Referrals Name Type Priority Associated Diagnoses Orde r Schedule CARDIOLOGY REFERRAL OP Referral Within 30 days (routine) Chest pain, unspecified type Ordered: 04/03/2024 POPULATION HEALTH REFERRAL OP Referral Within 3 days (urgent) Lack of adequate food and safe drinking water Other problems related to housing and economic circumstances Ordered: 04/03/2024 Health Maintenance Due Date Last Done Comments DISCUSS TOBACCO CESSATION (R EFER TO SMARTSET #[id number]) 1999 Pneumococcal Vaccine: Pediat rics (0 to 5 Years) and At-Risk Patients (6 to 64 Years) (1 of 2 - PCV) 2005 HPV (Gardasil) Vaccine (2 - Male 2-dose series) 07/06/2011 01/03/2011 DTaP,Tdap,and Td Vaccines (7 - Td or Tdap) 01/03/2021 01/03/2011, 03/28/2005, 10/24/2000, Additional history exists COVID-19 Vaccine (1 - 2022-2 4 season) 2023 Influenza Vaccine (FLU shot) (#1) 2024 009 Depression Monitoring 10/14/2024 10/15/2023 Hepatitis B Vaccine Completed 01/19/2000, 1999, 1999 MENINGOCOCCAL (MENACTRA/MENVEO) Completed , 01/03/2011 documented as of this encounter Medical Devices Not on filedocumented as of this encounter Visit Diagnoses Diagnosis Chest pain, unspecified type- Primary Uncomplicated asthma, unspecified asthma severity, unspecified whether persistent Right-sided low back pain without sciatica, unspecified chronicity Lack of adequate food and safe drinking water Effects of hunger Other problems related to housing and economic circumstances documented in this encounter Advance Directives * [...] and were consensually agreed upon. Care Teams Meat Department Manager Relationship Specialty Start Date End Date Mulugeta Arnett MD [address] [phone] PCP - General Family Medicine 07/16/23 documented as of this encounter"
--- OUTSIDE RECORDS SUMMARY | 2024-06-18 10:37 | External Medical Summary ---
Author Name Unknown Address Unknown Organization [facility] [employer] [facility] [employer] [facility] [address] [place] [id number] Laboratory Report Ordering Provider Test Date Status DollyBrentonarti 03/20/2024 10:38:00 Final Observation Date Value Abnormality Reference (Units ) Status Acetaminophen [Mass/volume] in Serum or Plasma 03/20/2024 11:14:16 <5.0 Below low normal 10.0-30.0 (ug/mL) Final Performing Location [facility] [employer] [address] [place] [address]
--- OUTSIDE RECORDS SUMMARY | 2024-06-18 10:37 | External Medical Summary | Summary of Care ---
Author Name Unknown Organization [facility] Address [address] [place] [address] Phone [phone] Care Team Providers Care Sea Shell Gatherer Name Role Phone Mulugeta Arnett MD Primary Care Provider Reason for Visit * Reason Onset Date Comments Encounter Created in Error 04/11/2024 Encounter Details Date Type Department Care Team ([facility] st Contact Info) Description 04/11/2024 Telephone [facility] [address] [place] [address] Mulugeta Arnett MD [address] [place] [address] Encounter Created in Error Allergies No known active allergiesdocumented as of this encounter (statuses as of 04/11/2024) Medications Medication Sig Dispensed Refills Start Date [...] as of this encounter (statuses as of 04/11/2024) Active Problems Problem Noted Date Diagnosed Date [...] as of this encounter (statuses as of 04/11/2024) Resolved Problems Problem Noted Date Diagnosed Date Resolved Date Aggressive behavior 10/07/2023 10/15/19 24 Psychosis 10/07/2023 10/15/2023 Cellulitis of right leg 07/12/2023 07/ Sepsis without acute organ dysfunction 07/12/2023 03/11/2024 Tobacco use disorder 09/03/2015 024 documented as of this encounter (statuses as of 04/11/2024) Immunizations Name Administration Dates Next Due DTaP [...] 04/03/2024 Does the household have a re lar source of income? (Household - for ages [...] encounter Miscellaneous Notes * Telephone Encounter - Vibha Carey OSA - 04/11/2024 11:02 AM EDT Error documented in this encounter Plan of Treatment Upcoming Encounters Date Type Department Care Team (Late st Contact Info) Description 04/11/2024 12:40 PM EDT Nurse Only Ancillary 1st Floor, [place] [address] [place] [address] Nurse Amairani [place] [address] [facility] [place] [address] 05/07/2024 2:10 PM EDT Office Visit Optometry, [place] [address] [place] [address] Greg Reddy Jr., OD [address] [place] [address] 06/18/2024 10:00 AM EST Office Visit Cardiology, [place] [address] [place] [address] Rianna Batista MD [address] [place] [address] 08/05/2024 2:40 PM EST Office Visit Family Practice, [place] [address] [place] [phone] Stacy Hopson CRNP [address] [place] [address] Health Maintenance Due Date Last Done Comments DISCUSS TOBACCO CESSATION (R EFER TO SMARTSET #6778) 1999 Pneumococcal Vaccine: Pediat rics (0 to [...] and were consensually agreed upon. Care Teams Sea Shell Gatherer Relationship Specialty Start Date End Date Mulugeta Arnett MD [address] [place] [phone] PCP - General Family Medicine 07/16/23 documented as of this encounter
--- OUTSIDE RECORDS SUMMARY | 2024-06-18 10:37 | External Medical Summary ---
Author Name Unknown Address Unknown Organization [facility] [address] [place] [address] [place] [address] Laboratory Report Ordering Provider Test Date Status Renata Holley 03/19/2024 21:01:00 Final stuck pt he complained the e ntire time ask me to take the needle out linwood will try RN Rebeka aware03/19/2024 20:33:26 EDT EE Observation Date Value Abnormality Reference (Units ) Status Final 03/25/2024 00:01:23 No growth at 5 days Final Performing Location [facility] [address] [place] [address] [place] [id number]
--- OUTSIDE RECORDS SUMMARY | 2024-06-18 10:37 | External Medical Summary | Summary of Care ---
Author Name Unknown Organization [facility] Address [address] [place] [address] Phone [phone] Care Team Providers Care Receiving Manager Name Role Phone Mulugeta Arnett MD Primary Care Provider Encounter Details Date Type Department Care Team ([facility] st Contact Info) Description 04/10/2024 Population Health External Data Unspecified Department Allergies No known active allergiesdocumented as of this encounter (statuses as of 04/10/2024) Medications Medication Sig Dispensed Refills Start Date [...] as of this encounter (statuses as of 04/10/2024) Active Problems Problem Noted Date Diagnosed Date [...] as of this encounter (statuses as of 04/10/2024) Resolved Problems Problem Noted Date Diagnosed Date Resolved Date Aggressive behavior 10/07/2023 10/15/19 24 Psychosis 10/07/2023 10/15/2023 Cellulitis of right leg 07/12/2023 07/3 Sepsis without acute organ dysfunction 07/12/2023 03/11/2024 Tobacco use disorder 09/03/2015 024 documented as of this encounter (statuses as of 04/10/2024) Immunizations Name Administration Dates Next Due DTaP [...] 05/07/2024 2:10 PM EDT Office Visit Optometry, [place] [address] [place] [address] Greg Reddy Jr., OD [address] [place] [address] 06/18/2024 10:00 AM EST Office Visit Cardiology, [place] [address] [facility] [place] [address] Rianna Batista MD [address] [place], [place] [phone] 08/05/2024 2:40 PM EST Office Visit Family Practice, [place] [address] [place] [address] Stacy Hopson CRNP [address] [place], [place] [phone] Health Maintenance Due Date Last Done Comments DISCUSS TOBACCO CESSATION (R EFER TO SMARTSET #[id number]) 1999 Pneumococcal Vaccine: Pediat rics (0 to 5 Years) and At-Risk Patients (6 to 64 Years) (1 of 2 - PCV) 2005 HPV (Gardasil) Vaccine (2 - Male 2-dose series) 07/06/2011 01/03/2011 DTap/Tdap Vaccines (7 - Td o r Tdap) 01/03/2021 01/03/2011, 03/28/2005, 10/24/2000, Additional history exists COVID-19 Vaccine ( - 2022-2 4 season) 2023 *SPIROMETRY ONCE FOR ASTHMA-ADULT 04/06/2024 Influenza Vaccine (FLU shot) (#1) 2024 009 Depression Monitoring 10/14/2024 10/15/2023 Hepatitis B Vaccine Completed 01/19/2000, 1999, 1999 MENINGOCOCCAL (MENACTRA/MENVEO) Completed 6, 01/03/2011 documented as of this encounter Medical [...] and were consensually agreed upon. Care Teams Receiving Manager Relationship Specialty Start Date End Date Mulugeta Arnett MD [address] [phone] PCP - General Family Medicine 07/16/23 documented as of this encounter
--- OUTSIDE RECORDS SUMMARY | 2024-06-18 10:37 | External Medical Summary ---
Author Name Unknown Address Unknown Organization [facility] [employer]:[facility] [employer] [address] [place] [id number] Laboratory Report Ordering Provider Test Date Status Renata Holley 03/19/2024 20:07:00 Final Observation Date Value Abnormality Reference (Units ) Status Troponin T.cardiac [Mass/volume] in Serum or Plasma 03/19/2024 21:05:49 <6 0-22 (ng/L) Final Performing Location [facility] [employer] Imaging Technologist ry [address] [place] [address]
--- OUTSIDE RECORDS SUMMARY | 2024-06-18 10:37 | External Medical Summary ---
Author Name Unknown Address Unknown Organization [facility] [employer] Chemistry:[facility] [employer] [address] [place] [address] Laboratory Report Ordering Provider Test Date Status Renata Holley 03/19/2024 21:44:00 Final Observation Date Value Abnormality Reference (Units) Status Amphetamine [Presence] in Urine by Screen method 03/19/2024 22:15:37 Presumptive Pos^Presumptive Pos Abnormal Not Detected Final Benzodiazepines [Presence] in Urine by Screen method 03/19/2024 22:15:37 Not Detected^Not Detected Not Detected Final Cannabinoids [Presence] in Urine by Screen method 03/19/2024 22:15:37 Not Detected^Not Detected Not Detected Final Benzoylecgonine [Presence] in Urine 03/19/2024 22:15:37 Not Detected^Not Detected Not Detected Final HYDROcodone [Presence] in Urine by Screen method 03/19/2024 22:15:37 Not Detected^Not Detected Not Detected Final Drug Level
Amphetamines 500 ng/mL
Benzodiazepines 100 ng/mL
Cannabinoids 50 ng/mL
Cocain Metabolite 150 ng/mL
Hydrocodone 100 ng/mL
Methadone Metabolite 100 ng/mL
Morphine/ Codeine 300 ng/mL
Oxycodone 100 ng/mL

The above screening results are presumptive and can only be used for medical purposes. Confirmatory testing is available upon request.
Intended for medical treatment only. U Fentanyl Scr 03/19/2024 22:15:37 Not Detected^Not Detected Final Fentanyl Assay Cutoff >=5 ng /mL
The above screening results are presumptive and can only be used for medical purposes. Confirmatory testing is available upon request. Intended for medical treatment only. Methadone [Presence] in Urine 03/19/2024 22:15:37 Not Detected^Not Detected Not Detected Final Opiates [Presence] in Urine by Screen method 03/19/2024 22:15:37 Not Detected^Not Detected Not Detected Final oxyCODONE [Presence] in Urine 03/19/2024 22:15:37 Not Detected^Not Detected Not Detected Final Performing Location [facility] [employer] Television Receiver Analyzer ry [address] [place] [id number]
--- OUTSIDE RECORDS SUMMARY | 2024-06-18 10:37 | External Medical Summary | Summary of Care ---
Author Name Unknown Organization [facility] Address [address] [place] [address] Phone [phone] Care Team Providers Care Color Matcher Name Role Phone Mulugeta Arnett MD Primary Care Provider Reason for Visit * Reason Comments Chest Pain * Auth/Cert Specialty Diagnoses / Procedures Referred By Juany camargo Referred To Contact [facility] [address] [place] [address] Phone: [phone] [facility] [address] [id number] Referral ID Status Reason Start Date Expiration Date Visits Re quested Visits Authorized [id number] Encounter Details Date Type Department Care Team (Late st Contact Info) Description 04/09/2024 10:54 PM EDT - 04/09/2024 10:56 PM EDT Emergency [facility] Emergency Department ([facility]) [address] [place] [address] Fabian Brito MD [address] [place] [address] Chest pain Discharge Disposition: Left ED Without Being Seen Allergies No known active allergiesdocumented as of [...] Psychosis 10/07/2023 10/15/2023 Cellulitis of right leg 07/12/2023/ Sepsis without acute organ dysfunction 07/12/2023 03/11/2024 [...] Sign Reading Time Taken Comments Blood Pressure 137/74 04/09/2024 9:23 PM EDT Pulse 104 04/09/2024 9:23 PM EDT Temperature 36.7 C (98.1 F) 04/09/2024 9:23 PM ED T Respiratory Rate 18 04/09/2024 9:23 PM EDT Oxygen Saturation 100% 04/09/2024 9:23 PM EDT Inhaled Oxygen Concentration - - Weight 74.8 kg (165 lb) 04/09/2024 9:23 PM EDT Height 170.2 cm (5' 7") 04/09/2024 9:23 PM EDT Body Mass Index 25.84 04/09/2024 9:23 PM EDT documented in this encounter Functional [...] No 10/07/2023 documented as of this encounter ED Notes * Jaelyn Kruse, VALERIA - 04/09/2024 9:18 PM EDT Pt came to ED due to CP. Pt was outside when called into triage room, pt was smoking a cigarette outside. Pt reports CP for months now and reports that he had CP that. CP centrally located and denies radiation at this time. Reports bilaterally numbness in hands. Denies drug usage in last 2 days. Noted sweating in triage. Reports shakiness. Denies SI/HI or hallucinations. Denies withdrawal symptoms documented in this encounter Plan of Treatment Upcoming Encounters Date Type Department Care Team (Late st Contact Info) Description 05/07/2024 2:10 PM EDT Office Visit Optometry, [place] [address] [place] [address] Greg Reddy Jr., OD [address] [place] [address] 06/18/2024 10:00 AM EST Office Visit Cardiology, [place] [address] [place] [address] Rianna Batista MD [address] [facility] [place] [address] 08/05/2024 2:40 PM EST Office Visit Family Practice, [place] [address] [phone] Stacy Hopson CRNP [address] [facility] [place] [address] Scheduled Orders Name Type Priority Associated Diagnoses Orde r Schedule EKG EKG STAT Chest pain Perform Now for 1 Occurrences starting 04/09/2024 until 04/09/2024 COMPREHENSIVE METABOLIC PANEL Lab STAT One Time for 1 Occurrences starting 04/09/2024 until 04/09/2024 CBC WITH WBC DIFFERENTIAL Lab STAT One Time for 1 Occurrences starting 04/09/2024 until 04/09/2024 TROPONIN T, HIGH SENSITIVITY Lab STAT Perform Now for 1 Occurrences starting 04/09/2024 until 04/09/2024 TROPONIN T, HIGH SENSITIVITY Lab STAT One Time for 1 Occurrences starting 04/09/2024 until 04/09/2024 EXTRA LIGHT BLUE TOP Lab STAT One Time for 1 Occurrences starting 04/09/2024 until 04/09/2024 CBC Lab STAT Once for 1 Occ urrences starting 04/09/2024 until 04/09/2024 DIFFERENTIAL, AUTOMATED Lab STAT O nce for 1 Occurrences starting 04/09/2024 until 04/09/2024 Health Maintenance Due Date Last Done Comments DISCUSS TOBACCO CESSATION (R EFER TO SMARTSET #0905) 1999 Pneumococcal Vaccine: Pediat rics (0 to [...] Procedure Name Priority Date/Time Associated Diagnosis Comments XR CHEST 2 VIEWS STAT 04/09/2024 9:33 PM EDT documented in this encounter Results * XR CHEST 2 VIEWS (04/09/2024 9:33 PM EDT) Anatomical Region Laterality Modality Chest Digital Radiogra phy 04/09/2024 9:31 PM EDT Impressions 04/09/2024 10:04 PM EDT IMPRESSION: No acute findings. THIS DOCUMENT HAS BEEN ELECTRONICALLY SIGNED BY CHIOMA HERNANDEZ MD Narrative 04/09/2024 10:04 PM EDT PROCEDURE INFORMATION: Exam: XR Chest Exam date and time: 04/09/2024 9:31 PM Age: 23 years old Clinical indication: Pain; Chest pressure; Additional info: Chest pain TECHNIQUE: Imaging protocol: Radiologic exam of the chest. Views: 2 views. COMPARISON: DX XR CHEST 1 VIEW 01/03/2024 11:27 PM FINDINGS: Lungs: Unremarkable. No consolidation. Pleural spaces: Unremarkable. No pleural effusion. No pneumothorax. Heart/Mediastinum: Unremarkable. No cardiomegaly. Bones/joints: Unremarkable. Procedure Note Chioma Hernandez MD - 04/09/2024 PROCEDURE INFORMATION: Exam: XR Chest Exam date and time: 04/09/2024 9:31 PM Age: 23 years old Clinical indication: Pain; Chest pressure; Additional info: Chest pain TECHNIQUE: Imaging protocol: Radiologic exam of the chest. Views: 2 views. COMPARISON: DX XR CHEST 1 VIEW 01/03/2024 11:27 PM FINDINGS: Lungs: Unremarkable. No consolidation. Pleural spaces: Unremarkable. No pleural effusion. No pneumothorax. Heart/Mediastinum: Unremarkable. No cardiomegaly. Bones/joints: Unremarkable. IMPRESSION IMPRESSION: No acute findings. THIS DOCUMENT HAS BEEN ELECTRONICALLY SIGNED BY CHIOMA HERNANDEZ MD Tee Whitehead MD RADIOLOGY (RAD GENER AL) documented in this encounter Visit Diagnoses Diagnosis Chest pain Chest pain, unspecified documented in this encounter Advance Directives * [...] and were consensually agreed upon. Care Teams Color Matcher Relationship Specialty Start Date End Date Mulugeta Arnett MD [address] [address] PCP - General Family Medicine 07/16/23 documented as of this encounter
--- OUTSIDE RECORDS SUMMARY | 2024-06-18 10:37 | External Medical Summary | Summary of Care ---
Author Name Unknown Organization [facility] Address [address] [place] [address] Phone [phone] Care Team Providers Care Riveter Automobile Brakes Name Role Phone Mulugeta Arnett MD Primary Care Provider Reason for Referral * Social Care (Within 3 days (urgent)) - Pending Review Specialty Diagnoses / Procedures Referred By Juany camargo Referred To Contact High Pressure Boiler Operator Diagnoses Lack of adequate food and safe drinking water Other problems related to housing and economic circumstances Stacy Hopson CRNP [address] [place] [address] Referral ID Status Reason Start Date Expiration Date Visits Requested Visits Authorized [id number] Pending Review Specialty Services Required 04/03/2024 999 999 Question Answer Referral Priority Within 3 days (urgent) Where should this appointment be scheduled? [facility] Role Crime Prevention Police Officer Crime Prevention Police Officer Referral Reason Food Resources, Financial Resources Comments Is patient being transitioned from [facility] to Complex Case Management? No * Evaluate & Treat - Unlimited Visits (Within 30 days (routine)) - Pending Review Specialty Diagnoses / Procedures Referred By Juany camargo Referred To Contact Cardiovascular Medicine / Cardiology Diagnoses Chest pain, unspecified type Stacy Hopson CRNP [address] [place] [address] Referral ID Status Reason Start Date Expiration Date Visits Requested Visits Authorized [id number] Pending Review Specialty Services Required 04/03/2024 999 [...] Description 04/03/2024 4:20 PM EDT Office Visit [facility] [place] [address] [place] [phone] Stacy Hopson CRNP [address] [place] [address] Chest pain, unspecified type*; Uncomplicated asthma, unspecified [...] 05/07/2024 2:10 PM EDT Office Visit Optometry, [place] [address] [place] [address] Greg Reddy Jr., OD [address] [place] [address] 06/18/2024 10:00 AM EST [place] [address] [place] [address] Rianna Batista MD [address] [place] [address] 08/05/2024 2:40 PM EST Office Visit Family Practice, [place] [address] [place] [phone] Stacy Hopson CRNP [address] [place] [address] Scheduled Orders Name Type Priority Associated Diagnoses [...] DISCUSS TOBACCO CESSATION (R EFER TO SMARTSET #[id number]) 1999 Pneumococcal Vaccine: Pediat rics (0 to [...] and were consensually agreed upon. Care Teams [employer] Brakes Relationship Specialty Start Date End Date Mulugeta Arnett MD 21 [facility] [place] [address] PCP - General Family Medicine 07/16/23 documented as of this encounter"
--- OUTSIDE RECORDS SUMMARY | 2024-06-18 10:37 | External Medical Summary | Summary of Care ---
Author Name Unknown Organization [facility] Address [address] [place] [address] Phone [phone] Care Team Providers Care Motor Scooter Repairer Name Role Phone Mulugeta Arnett MD Primary Care Provider Reason for Visit * Reason Onset Date Comments Referral 04/09/2024 Encounter Details Date Type Department Care Team ([facility] st Contact Info) Description 04/09/2024 New Patient Triage (DENTAL PRACTITIONER USE ONLY) [address] [address] Rupa Delatorre CRNP [address] [place], [place] [phone] Referral Allergies No known active allergiesdocumented as of this encounter (statuses as of 04/09/2024) Medications Medication Sig Dispensed Refills Start Date [...] as of this encounter (statuses as of 04/09/2024) Active Problems Problem Noted Date Diagnosed Date [...] as of this encounter (statuses as of 04/09/2024) Resolved Problems Problem Noted Date Diagnosed Date Resolved Date Aggressive behavior 10/07/2023 10/15/19 24 Psychosis 10/07/2023 10/15/2023 Cellulitis of right leg 07/12/202302/12 Sepsis without acute organ dysfunction 07/12/2023 03/11/2024 Tobacco use disorder 09/03/2015 024 documented as of this encounter (statuses as of 04/09/2024) Immunizations Name Administration Dates Next Due DTaP [...] as of this encounter Progress Notes * Surya Washington PA-C - 04/09/2024 9:37 PM EDT Does patient need to be seen?: Yes Modality: Office visit Urgency: Within 30 days (routine) Discussed care plan with patient or proxy?: Yes Alfredot Communicated with patient on Date (mm/dd/yyyy): 04/09/2024 at Time ([facility]): 10:22 AM Patient currently (04/09/2024 @ 9:40) being evaluated at the [facility] ER Surya Washington PA-C Department of Cardiology * Yelena Khan LPN - 04/09/2024 10:11 AM EDT Images from the original note were not included. New Patient Triage What is the diagnosis/reason for referral?: chest pain Enter order ID here: [id number] Specialty specific documentation: Other Discussed care plan with patient or proxy?: Yes MyG Communicated with patient on Date (mm/dd/yyyy): 04/09/2024 at Time ([facility]): 1020 APPOINTMENT INFO: 06/18/2024 Dr Batista INFO FROM CARDIAC REFERRAL Referred by Stacy Hopson CRNP/Family Medicine - notes below. Luis presents to the clinic reporting about a year of chest pain. He has been seen in the ER and has had negative workups completed. He has had multiple syncopal episodes related to chest pain. He is concerned because he used to inject illicit drugs and is worried that it has damaged his heart. Cardio referral and ZIO were ordered. Pt had recent ER visits and admissions to [facility] 03/19 and 03/20 (notes below) [facility] - clearance for intermediate. Pt was acting excessively sleepy during intermediate booking, ER completed a work up and cleared him for booking documented in this encounter Plan of Treatment Upcoming Encounters Date Type Department Care Team (Late st Contact Info) Description 05/07/2024 2:10 PM EDT Office Visit Optometry, [place] [address] [place] [address] Greg Reddy Jr., EL [address] [place] [address] 06/18/2024 10:00 AM EST Office Visit Cardiology, [place] [address] [place], [place] [phone] Rianna Batsita MD [address] [place], [place] [phone] 08/05/2024 2:40 PM EST Office Visit Family Practice, [place] [address] [place] [address] Stacy Hopson CRNP [address] [place], [place] [phone] Health Maintenance Due Date Last Done Comments DISCUSS TOBACCO CESSATION (Michelle COTE TO SMARTSET #[id number]) 1999 Pneumococcal Vaccine: Pediat rics (0 to [...] and were consensually agreed upon. Care Teams Motor Scooter Repairer Relationship Specialty Start Date End Date Mulugeta Arnett MD [address] [address] PCP - General Family Medicine 07/16/23 documented as of this encounter
--- OUTSIDE RECORDS SUMMARY | 2024-06-18 10:37 | External Medical Summary | Continuity of Care Document ---
Author Name Unknown Organization [facility] Address [address] [place] [address] Care Team Providers Care Roll Operator Name Role Phone Edwin Figueroa Primary Care Physician [phone] [facility]counter [id number] Date(s): 03/20/24 - 03/20/24 [facility] [address] [place] [address] [place] Encounter Diagnosis Psychiatric problem(Discharge Diagnosis) - 03/20/24 Discharge Disposition: Psychiatric Facility/Unit Attending Physician: MD Aleida, Dolly Anguiano Allergies, Adverse Reactions, Alerts No Known Allergies Functional Status 03/20/24 History of Fall in Last 3 Months Ramirez N o Presence of Secondary Diagnosis Ramirez No Use of Ambulatory Aid Ramirez None/bedrest /nurse assist IV/Heparin Lock Fall Risk Ramirez No Gait/Transferring Fall Risk Ramirez Normal /bedrest/immobile Mental Status Fall Risk Ramirez Oriented t o own ability Ramirez Fall Risk Score 0 Ramirez Fall Risk No Risk 03/20/24 Speech Pattern Clear Medications gabapentin 300 mg oral capsule Start: 03/20/24 9:01:00 AM EDT, 1 cap, PO, bid, as stated by patient Start Date: 03/20/24 Status: Ordered Subutex 8 mg sublingual tablet Start: 03/20/24 9:05:00 AM EDT, 3 tab, SL, Daily, as stated by patient Start Date: 03/20/24 Status: Ordered Problem List Diagnosis Diagnosis Type Effective Dates Health Status Clinical Service Informant Psychiatric problem Discharge Diagnosis 03/20/24 Non-Specified Results Laboratory List Name Date Acetaminophen Level. 03/20/24 Alcohol Level. (Ethanol Level, ETOH Leve l.) 03/20/24 Salicylate Level. 03/20/24 Most recent to oldest [Reference Range]: 1 Salicylate Lvl [<=19.9 mg/dL] <1.0 mg/dL (03/20/24 10:38 AM) Ethanol Level. [<=10.1 mg/dL] <10.0 mg/d L (03/20/24 10:38 AM) Acetaminophen [10.0-30.0 ug/mL] <5.0 ug/ mL *LOW* (03/20/24 10:38 AM) Vital Signs Most recent to oldest [Reference Range]: 1 2 Height 172 cm (03/20/24 8:41 AM) Patient Weight 68.95 kg (03/20/24 8:41 AM) Body Mass Index 23.31 kg/m2 (03/20/24 8:41 AM) Temperature [36.5-37.9 DegC] 37.5 DegC (03/20/24 8:41 AM) Heart Rate 90 bpm (03/20/24 3:32 PM) 107 bpm (03/20/24 8:41 AM) Respiratory Rate 14 br/min (03/20/24 3:32 PM) 16 br/min (03/20/24 8:41 AM) Blood Pressure 139/86mmHg (03/20/24 3:32 PM) 125/97mmHg (03/20/24 8:41 AM) Mean Blood Pressure 107 mmHg (03/20/24 8:41 AM) Cuff Pulse Pressure 53 mmHg (03/20/24 3:32 PM) Social History Social History Type Response Smoking Status Current every day he edilberto smoker Sex Male Sex Representation Male (finding) Note * MD Sanon Steven: PERFORM, MODIFY, MODIFY Event Display: Psychiatry Consult Authored Date: Name:RACHEL HYDE Patient Number:[id number] :2000 Date of Service:03/20/2024 The patient gave consent for this telehealth consult. Chief Complaint Pt was walking around in the rain of the ED parking lot. Pt was DC'd last night and has no recolection of his actions or whereabouts since dischagre. History of Present Illness Psychiatry consult was requested for this 23-year-old male related to psychosis. The following was documented by the physician: "Patient is a 23-year-old male who presents to the emergency department with possible psychiatric concerns. Patient was seen in the emergency department yesterday for chest pain, had a negative CT PE, at that time also had a medical workup that was positive for amphetamines on his drug screen, and patient received a behavioral health evaluation, at that time, patient reported using methamphetamines 2 days ago and was hearing voices since then, patient was discharged from the emergency department however reportedly he was wandering around the area outside the hospital since discharge last night, was found reportedly dancing in the street per PD, and reportedlywas talking to himself in the parking lot and looking into cars. Patient tells me that he was just walking around because he does not know the [place] area. He denies any drug use. He states that he has not been hallucinating. Patient denies any medical problems, denies any suicidal ideation or homicidal ideation or desire to hurt himself.. Health Status Allergies: Allergic Reactions (Selected) NKA. Past Medical/ Family/ Social History Surgical history: No active procedure history items have been selected or recorded.. Family history: No family history items have been selected or recorded.. Problem list: No qualifying data available" Nursing reports the patient has been pleasant and cooperative since his arrival here. He has no recall of what transpired from the time he left the emergency room yesterday until the time he represented. Nursing reports that the patienthas frequently been foundin a catatonic positionsfor example sitting with hisarmslifted up in the air of sitting motionless or standing in the doorwayas if her frozen statue forlength of time. At 1 point when nursing asked the patient what he was thinking about he responded "I think I am crazy"but then declined to further elaborateas to why he has had this. In meeting with the patienthe states he has been feeling very depressed and sad for some time as well as very anxious and nervous.He reports he is here due to his drug use. He admits to usingmethamphetaminerecently but is very vaguein terms offurther quantifyingthe frequencyand amounts of use. The patient remained very vagueand avoidant in discussing what stressorshave been playing a role in his depression and anxiety. Past psychiatric history:The patient reportshe has had no prior treatmentand that he has had no rehab help for his drug use. He reports he has never been prescribed any psychiatric medications. He isreporting that he is currently takingSubutex and gabapentin at home which she statesare both prescribed forneuropathy and back pain. He does admit to some past injection of opioidsbut was very vague about this as well. Social history: The patient is single and has no children. He is not working at this time. He lives with his grandmother. He reports no abuse. Family history: Unremarkableper patient Substance use history:As above. The patient states he smokes 1 pack of cigarettes per day. Heremains very vague regarding his substance use. [place] suicide severity risk scale: The patient denies history of wishes or suicidal ideationscore no risk for suicide. Vital signs and labsreviewed. The patient's drug screen is a presumptive positive for amphetamines. Mental status examination:The patient is alert and well-oriented to all spheres. Affect appears depressed and somewhat anxious. He was seated for the assessment. He episodically made eye contact and at other times look down at the floor. He demonstrated adequate attention to grooming. Speech was at times poorly articulatedmaking it difficult tounderstand some of the patient's responses.In general the patient was a poor historianoffering vague responses and failing to elaborateat times when requested. At times he presented with circumstantialand tangential. He denies suicidal homicidal ideation. He appears to be of average intelligence last use vocabulary, so structure and syntax. He did admit to auditory visual hallucinations. He states "I seeweirdthings". He states that he also hears voices talking to him. Hedeniedcommand hallucinationsbut was otherwise extremely vagueand further elaboratingand detailing his hallucinations. Hispsychosis has intermittently impaired his insight and judgment. At this time he does recognize the need for inpatient psychiatric treatment. Addendum: Following my visitwith the patient, he further decompensatedwith escalating agitation and florid psychosisas observed by Dr. Shin. Physical Exam Vitals & Measurements T:37.5C HR:107(Monitored) RR:16 BP:125/97 SpO2:99% Oxygen Therapy:Room Air HT:172cm WT:68.950kg(Dosing) WT:68.95kg BMI:23.31 Assessment/Plan 23-year-old male presenting withpsychosis following methamphetamine use. Unspecified psychosis;methamphetamine use disorder;rule out methamphetamine inducedpsychosis; unspecified mood disorder; unspecified anxiety disorder;rule out methamphetamine induced mood disorder with anxiety. Recommendations:Inpatient psychiatric treatment is indicatedvoluntarily, and if not then involuntarily, forprevention of precautions, further diagnostic evaluation and treatment stabilizationgiven the patient'spsychosisand compromised safety awareness. The patient is in agreement of this plan. In the meantime recommend starting Zyprexa 5 mg p.o. dailyfor psychosis and his mood stabilizer. Consider additional Zyprexa 5 to 10 mg p.o. or IMevery 6 hours as needed agitation/psychosis. Total Zyprexa should not exceed 30 mg per 24 hours.Recommend resuming the home medication regimen consisting of Subutex and gabapentin(the patient reports his last dose of each wasyesterday)after confirming the medications and their dosing. Continue current psychiatric precautions. Reconsult psychiatry as needed. The patient gives his informed consent for the medications. Psychiatric problem Medications Home buprenorphine(Subutex 8 mg sublingual tablet), 24 mg= 3 tab, SL, Daily gabapentin(gabapentin 300 mg oral capsule), 300 mg= 1 cap, PO, bid Allergies NKA Social History Smoking Status Current every day heavy smoker Electronic Signature on File CC: Dolly Shin MD [address] [place] [address] Electronically Reviewed/Signed by: Domingo Sanon M.D. Author Signature Dt/Tm:03/20/2024 11:27 AM Department of Psychiatry Electronically Reviewed/Signed by: Christina Gamezer Signature Dt/Tm: 03/20/2024 01:00 PM Department of Psychiatry Electronically Reviewed/Signed by: Christina Gamez Signature Dt/Tm: 03/20/2024 01:05 PM Department of Psychiatry SS Emergency department Summary note * MD Tawnya, Justin Can: PERFORM Event Display: ED Summary Authored Date: [id number] PHYSICIAN HANDOFF Prehospital events - Per initial HPI : "Patient is a 23-year-old male who presents to the emergency department with possible psychiatric concerns. Patient was seen in the emergency department yesterday for chest pain, had a negative CT PE, at that time also had a medical workup that was positive for amphetamines onhis drug screen, and patient received a behavioral health evaluation, at that time, patient reported using methamphetamines 2 days ago and was hearing voices since then, patient was discharged from the emergency department however reportedly he was wandering around the area outside the hospital since discharge last night, was found reportedly dancing in the street per PD, and reportedly was talking to himself in the parking lot and looking into cars. Patient tells me that he was just walking around because he does not know the [place] area. He denies any drug use. He states that he has not been hallucinating. Patient denies any medical problems, denies any suicidal ideation or homicidal ideation or desire to hurt himself.. ED course: -The patient was medically cleared andunderwent 302by 2ER physicians. Patient was signed out to me pending placement for inpatient psychiatric care. Results and Re-evaluation: -Patientdid leave with transport for inpatient psychiatric care. Noacute issues were brought to my attention prior to patient leaving Reexamination/Reevaluation Vitals & Measurements T:37.5C HR:90(Monitored) RR:14 BP:139/86 SpO2:100% Oxygen Therapy:Room Air HT:172cm WT:68.950kg(Dosing) WT:68.95kg BMI:23.31 Lab Results Drug Monitor LATEST RESULTS HISTORICAL RESULTS Acetaminophen 03/20/24 10:38 <5.0 Low 03/19/24 <5.0 Low Salicylate Lvl 03/20/24 10:38 <1.0 03/19/24 <1.0 Toxicology LATEST RESULTS HISTORICAL RESULTS Ethanol Level. 03/20/24 10:38 <10.0 03/19/24 <10.0 Assessment/Plan Psychiatric problem Electronic Signature on File Electronically Reviewed/Signed by: Justin Bowling MD Author Signature Dt/Tm:03/21/2024 10:53 AM Emergency Medicine [facility] * MD Aleida, Dolly Anguiano: SIGN, PERFORM, VERIFY Event Display: ED Summary Authored Date: [id number] Patient: RACHEL HYDE Age: 23 years Sex: Male : 2000 Associated Diagnoses: None Author: MD Shin Monica C Basic Information Additional information: Patient's physician(s): Basic Information Time seen: Date & time 03/20/2024 08:35:00. History source: Patient. Arrival mode: Private vehicle. History limitation: None. History of Present Illness Patient is a 23-year-old male who presents to the emergency department with possible psychiatric concerns. Patient was seen in the emergency department yesterday for chest pain, had a negative CT PE,at that time also had a medical workup that was positive for amphetamines on his drug screen, and patient received a behavioral health evaluation, at that time, patient reported using methamphetamines 2 days ago and was hearing voices since then, patient was discharged from the emergency departmenthowever reportedly he was wandering around the area outside the hospital since discharge last night, was found reportedly dancing in the street per PD, and reportedly was talking to himself in the parking lot and looking into cars. Patient tells me that he was just walking around because he does not know the [place] area. He denies any drug use. He states that he has not been hallucinating. Patient denies any medical problems, denies any suicidal ideation or homicidal ideation or desire to hurt himself.. Health Status Allergies: Allergic Reactions (Selected) NKA. Past Medical/ Family/ Social History Surgical history: No active procedure history items have been selected or recorded.. Family history: No family history items have been selected or recorded.. Problem list: No qualifying data available . Physical Examination Vital Signs Measurements 03/19/2024 18:17 EDT Osteoporosis Screening Tool 8.99 03/19/2024 18:12 EDT Height 172 cm Height Method Patient stated Patient Weight 68.95 kg Weight 68.950 kg Weight Method Standing Scale Body Mass Index 23.31 kg/m2 . General: Alert, no acute distress. Skin: Warm, dry. Head: Normocephalic. Eye: Normal conjunctiva. Respiratory: Respirations are non-labored, Symmetrical chest wall expansion. Musculoskeletal: Patient has some old abrasions on the right wrist. Neurological: Alert and oriented to person, place, time, and situation, normal speech observed. Psychiatric: Cooperative, Patient has a blank, flat affect. Medical Decision Making Rationale: Patient is a pleasant 23-year-old male who presents to the emergency department with abnormal behavior. At this time, we will repeat the acetaminophen, salicylate, alcohol, and UDS levels as the patient may have ingested substances since his discharge, otherwise patient had recent lab work. Will plan for crisis consultation.. Patient continued to respond to internal stimuli as well as performing odd behavior in the room, patient did also have a psychiatric consultation which recommended voluntary treatment, however patient was not willing to sign a 201. 302 was signed by myself and Dr. Fernandez, patient was also given antipsychotics but he did refuse to take p.o. medication. I did speak with the telepsychiatrist regarding the patient and he was in agreement with 302 as well.. Health Status Allergies: Allergic Reactions (Selected) NKA. Past Medical/ Family/ Social History Surgical history: No active procedure history items have been selected or recorded.. Family history: No family history items have been selected or recorded.. Problem list: No qualifying data available . Physical Examination Vital Signs Vital Signs 03/20/2024 15:32 EDT Heart Rate 90 bpm Respiratory Rate 14 br/min Systolic Blood Pressure 139 mmHg Diastolic Blood Pressure 86 mmHg Cuff Pulse Pressure 53 mmHg SpO2 100 % 03/20/2024 08:47 EDT MEWS Score 1 03/20/2024 08:41 EDT Temperature 37.5 DegC Temperature Route Tympanic Heart Rate 107 bpm Respiratory Rate 16 br/min Systolic Blood Pressure 125 mmHg Diastolic Blood Pressure 97 mmHg Mean Blood Pressure 107 mmHg Oxygen Therapy Room Air SpO2 99 % 03/19/2024 23:29 EDT MEWS Score 3 03/19/2024 23:24 EDT MEWS Score 4 03/19/2024 23:00 EDT Heart Rate 128 bpm Respiratory Rate 20 br/min Systolic Blood Pressure 136 mmHg Diastolic Blood Pressure 89 mmHg Oxygen Therapy Room Air SpO2 96 % 03/19/2024 22:18 EDT MEWS Score 4 03/19/2024 22:00 EDT Heart Rate 131 bpm Respiratory Rate 19 br/min Systolic Blood Pressure 136 mmHg Diastolic Blood Pressure 90 mmHg Oxygen Therapy Room Air SpO2 96 % 03/19/2024 21:09 EDT MEWS Score 4 03/19/2024 21:00 EDT Temperature 37.4 DegC Temperature Route Temporal Heart Rate 137 bpm Respiratory Rate 20 br/min Systolic Blood Pressure 113 mmHg Diastolic Blood Pressure 68 mmHg Cuff Pulse Pressure 45 mmHg Oxygen Therapy Room Air SpO2 96 % 03/19/2024 20:30 EDT Temperature Central Warm 03/19/2024 20:19 EDT MEWS Score 4 03/19/2024 20:00 EDT Heart Rate 146 bpm Respiratory Rate 22 br/min Systolic Blood Pressure 155 mmHg Diastolic Blood Pressure 100 mmHg Oxygen Therapy Room Air SpO2 95 % 03/19/2024 18:12 EDT Temperature 36.8 DegC Temperature Route Temporal Heart Rate 154 bpm Respiratory Rate 24 br/min Oxygen Therapy Room Air SpO2 98 % . Measurements 03/20/2024 08:48 EDT Osteoporosis Screening Tool 8.99 03/20/2024 08:41 EDT Height 172 cm Height Method Patient stated Patient Weight 68.95 kg Weight 68.950 kg Weight Method Standing Scale Body Mass Index 23.31 kg/m2 [place] Body Weight 67.7 kg 03/19/2024 18:17 EDT Osteoporosis Screening Tool 8.99 03/19/2024 18:12 EDT Height 172 cm Height Method Patient stated Patient Weight 68.95 kg Weight 68.950 kg Weight Method Standing Scale Body Mass Index 23.31 kg/m2 . Medical Decision Making Electrocardiogram: Cardiac 03/19/2024 18:37 EDT EKG ECG C 03/19/2024 18:23 EDT EKG ECG C . Results review: Lab results : Laboratory 03/20/2024 10:38 EDT Acetaminophen <5.0 ug/mL LOW Salicylate Lvl <1.0 mg/dL Ethanol Level. <10.0 mg/dL . Impression and Plan Diagnosis Psychiatric problem ([id number] F99) Plan Condition: Guarded. Disposition: Patient care transitioned to: Time: 03/20/2024 15:44:00, MD Tawnya, Justin Thomas Electronic Signature on File Electronically Reviewed/Signed by: Dolly Shin MD Author Signature Dt/Tm:03/20/2024 03:44 PM Department of Emergency Medicine [facility] * MD Shin Monica C: PERFORM, MODIFY, MODIFY, MODIFY, SIGN, VERIFY Event Display: ED Summary Authored Date: [id number] Patient: RACHEL HYDE Age: 23 years Sex: Male : 2000 Associated Diagnoses: None Author: MD Shin Monica C Basic Information Time seen: Date & time 03/20/2024 08:35:00. History source: Patient. Arrival mode: Private vehicle. History limitation: None. History of Present Illness Patient is a 23-year-old male who presents to the emergency department with possible psychiatric concerns. Patient was seen in the emergency department yesterday for chest pain, had a negative CT PE,at that time also had a medical workup that was positive for amphetamines on his drug screen, and patient received a behavioral health evaluation, at that time, patient reported using methamphetamines 2 days ago and was hearing voices since then, patient was discharged from the emergency departmenthowever reportedly he was wandering around the area outside the hospital since discharge last night, was found reportedly dancing in the street per PD, and reportedly was talking to himself in the parking lot and looking into cars. Patient tells me that he was just walking around because he does not know the [place] area. He denies any drug use. He states that he has not been hallucinating. Patient denies any medical problems, denies any suicidal ideation or homicidal ideation or desire to hurt himself.. Health Status Allergies: Allergic Reactions (Selected) NKA. Past Medical/ Family/ Social History Surgical history: No active procedure history items have been selected or recorded.. Family history: No family history items have been selected or recorded.. Problem list: No qualifying data available . Physical Examination Vital Signs Measurements 03/19/2024 18:17 EDT Osteoporosis Screening Tool 8.99 03/19/2024 18:12 EDT Height 172 cm Height Method Patient stated Patient Weight 68.95 kg Weight 68.950 kg Weight Method Standing Scale Body Mass Index 23.31 kg/m2 . General: Alert, no acute distress. Skin: Warm, dry. Head: Normocephalic. Eye: Normal conjunctiva. Respiratory: Respirations are non-labored, Symmetrical chest wall expansion. Musculoskeletal: Patient has some old abrasions on the right wrist. Neurological: Alert and oriented to person, place, time, and situation, normal speech observed. Psychiatric: Cooperative, Patient has a blank, flat affect. Medical Decision Making Rationale: Patient is a pleasant 23-year-old male who presents to the emergency department with abnormal behavior. At this time, we will repeat the acetaminophen, salicylate, alcohol, and UDS levels as the patient may have ingested substances since his discharge, otherwise patient had recent lab work. Will plan for crisis consultation.. Electrocardiogram: Cardiac 03/19/2024 18:37 EDT EKG ECG C 03/19/2024 18:23 EDT EKG ECG C . Impression and Plan Diagnosis Psychiatric problem ([id number] F99) Plan Condition: Guarded. Electronic Signature on File Electronically Reviewed/Signed by: Dolly Shin MD Author Signature Dt/Tm:03/22/2024 06:27 PM Department of Emergency Medicine Electronically Reviewed/Signed by: Document Refuse [facility] Patient Care team information Care Team Personnel Name: MD Henry, Edwin Martinez Position: Referring DIRECT Member Role: Primary Care Provider Address: [address] [place] [id number] [place] Name: MD Bowling Shane E Position: Physician - Emerg Med SA Member Role: Covering (3 days after created) Address: [address] [place] [address] [place] Name: MD Aleida, Dolly Anguiano Position: Physician - Emerg Med SA Member Role: Attending Physician Address: [address] [place] [address] [place] Name: VALERIA Tavarez Dennis C Position: RN - C Member Role: Registered Nurse
--- OUTSIDE RECORDS SUMMARY | 2024-06-18 10:38 | External Medical Summary ---
Author Name Unknown Address Unknown Organization [facility] [employer]:[facility] [employer] [address] [place] [address] Laboratory Report Ordering Provider Test Date Status Renata Holley 03/19/2024 20:07:00 Final Observation Date Value Abnormality Reference (Units ) Status pH of Venous blood 03/19/2024 20:18:04 7.37 7.32-7.43 Final Carbon dioxide [Partial pressure] in Venous blood 03/19/2024 20:18:04 51 40-60 (mmHg) Final Oxygen [Partial pressure] in Venous blood 03/19/2024 20:18:04 48 25-50 (mmHg) Final Base excess in Venous blood by calculation 03/19/2024 20:18:04 3.1 -2-2 (mmol/L) Final Bicarbonate [Moles/volume] in Venous blood 03/19/2024 20:18:04 29.6 23.0-31.0 (mmol/L) Final Performing Location [facility] [employer] [facility] [address] [place] [address]
--- OUTSIDE RECORDS SUMMARY | 2024-06-18 10:38 | External Medical Summary ---
Author Name Unknown Address Unknown Organization [facility] [employer]:[facility] [employer] [address] [place] [address] Laboratory Report Ordering Provider Test Date Status Renata Holley 03/19/2024 20:07:00 Final Observation Date Value Abnormality Reference (Units ) Status Ethanol [Mass/volume] in Serum or Plasma 03/19/2024 21:05:49 <10.0 <=10.1 (mg/dL) Final Performing Location [facility] [employer] [address] [place] [address]
--- OUTSIDE RECORDS SUMMARY | 2024-06-18 10:38 | External Medical Summary ---
Author Name Unknown Address Unknown Organization [facility] [employer] Chemistry:[facility] [employer] Chemistry [address] [place] [address] Laboratory Report Ordering Provider Test Date Status Renata Holley 03/19/2024 20:07:00 Final Observation Date Value Abnormality Reference (Units ) Status Thyrotropin [Units/volume] in Serum or Plasma 03/19/2024 21:05:49 1.31 0.30-4.20 (uIU/mL) Final Performing Location [facility] [employer] Burring Wheel Operator ry [address] [place] [address]
--- OUTSIDE RECORDS SUMMARY | 2024-06-18 10:38 | External Medical Summary ---
Author Name Unknown Address Unknown Organization [facility] [address] [place] [address] 170 Laboratory Report Ordering Provider Test Date Status Renata Holley 03/19/2024 20:07:00 Final Observation Date Value Abnormality Reference (Units ) Status Fibrin D-dimer FEU [Mass/volume] in Platelet poor plasma 03/19/2024 20:41:06 0.57 Above high normal <=0.53 (ug/mL FEU) Final The clinical d-dimer cut-off value of <0.5 ug/mL FEU has been established by the continuous pillowcase cutter for the exclusion of pulmonary embolism and/or deep venous thrombosis in outpatients with low pre-test probability. Performing Location [facility] [address] [place] [address]
--- OUTSIDE RECORDS SUMMARY | 2024-06-18 10:38 | External Medical Summary | Summary of Care ---
Author Name Unknown Organization [facility] Address [address] [place] [address] Phone [phone] Care Team Providers Care Wire Rigger Name Role Phone Mulugeta Arnett MD Primary Care Provider Encounter Details Date Type Department Care Team ([facility] Contact Info) Description 02/05/2024 Population Health External Data Unspecified Department Allergies No known active allergiesdocumented as of this encounter (statuses as of 02/05/2024) Medications Medication Sig Dispensed Refills Start Date End Date Status Cyclobenzaprine HCl 10 MG Oral Tablet (Flexeril) Take 1 Tablet by mouth at bedtime as needed for Muscle spasms. 10 Tablet 10/15/2023 Active Albuterol Sulfate HFA 108 (90 Base) MCG/ACT Inhalation Aerosol Solution Inhale 2 Puffs by mouth every 6 hours as needed for Dyspnea. 18 g 10/15/2023 Active Nicotine 21 MG/24HR Transdermal Patch 24 Hour (Nicoderm CQ) Place 1 Patch over 24 hours topically on the skin in the morning. 10/16/2023 Active OXcarbazepine 150 MG Oral Tablet (Trileptal) Take 1 Tablet by mouth in the morning and 1 Tablet before bedtime. 30 Tablet 1 10/15/2023 Active OLANZapine 10 MG Oral Tablet (zyPREXA) Take one-half Tablet by mouth in the morning and one-half Tablet before bedtime. 15 Tablet 1 10/15/2023 Active Albuterol Sulfate HFA 108 (90 Base) MCG/ACT Inhalation Aerosol Solution Inhale 2 Puffs by mouth every 4 hours as needed for Cough. 18 g 01/04/2024 Active Buprenorphine HCl 8 MG Sublingual Tablet Sublingual (Subutex) Place 2.5 Tablets under the tongue daily. 15 Tablet 01/22/2024 Active Buprenorphine HCl 8 MG Sublingual Tablet Sublingual (Subutex) Take 2 and 1/2 tablets under the tongue daily. 10 Tablet 01/31/2024 Active documented as of this encounter (statuses as of 02/05/2024) Active Problems Problem Noted Date Diagnosed Date History of posttraumatic stress disorder (PTSD) 10/09/2023 Opioid use disorder 10/09/2023 Tobacco use disorder 10/09/2023 History of depression 10/09/2023 Left against medical advice 07/14/2023 Bacteremia due to methicilli n susceptible Staphylococcus aureus (MSSA) 07/14/2023 Methamphetamine use disorder, severe 07/12/2023 Crack cocaine use 07/12/2023 Cellulitis of right leg 07/12/2023 Pulmonary nodules 07/12/2023 IV drug abuse 07/12/2023 Sepsis without acute organ dysfunction Major depressive disorder, recurrent 01/20/2021 Depression 09/03/2015 documented as of this encounter (statuses as of 02/05/2024) Resolved Problems Problem Noted Date Diagnosed Date Resolved Date Aggressive behavior 10/07/2023 10/15/19 24 Psychosis 10/07/2023 10/15/2023 Tobacco use disorder 09/03/2015 024 documented as of this encounter (statuses as of 02/05/2024) Immunizations Name Administration Dates Next Due DTaP Dipth/Tet/Acell Pertussis (Infanrix), Peds 03/28/2005,10/24/2000,03/22/2000,01/18,1999 HIB PRP-T, 4 Dose, PF, IM (Hiberix) 10/11,03/22/2000,01/19/2000,10/18 HPV Vaccine, 4-Valent 01/03/2011 Hep A - Hepatitis A (ped/ado le, 1-18 Yrs) 01/03/2011 Hepatitis B, 0-19 yrs 01/19/2000,1999,07/13 IPV [...] as of this encounter Plan of Treatment Health Maintenance Due Date Last Done Comments Pneumococcal Vaccine: Pediat rics (0 to 5 Years) and At-Risk Patients (6 to 64 Years) (1 of 2 - PCV) 2005 GARDASIL-HPV IMMUNIZATION SE TRACEY (2 - Male 2-dose series) 07/06/2011 01/03/2011 DTaP,Tdap,and Td Vaccines (7 - Td or Tdap) 01/03/2021 01/03/2011, 03/28/2005, 10/24/2000, Additional history exists COVID-19 Vaccine ( - 2022-2 4 season) 2023 Influenza Vaccine (FLU shot) (Season Ended) 2024 06/10/2009 Depression Monitoring 10/14/2024 10/15/2023 Hepatitis B Completed 01/19/2000, 08/13, 1999 MENINGOCOCCAL (MENACTRA/MENVEO) Completed , 01/03/2011 documented [...] and were consensually agreed upon. Care Teams Wire Rigger Relationship Specialty Start Date End Date Mulugeta Arnett MD [address] [id number] PCP - General Family Medicine 07/16/23 documented as of this encounter
--- OUTSIDE RECORDS SUMMARY | 2024-06-18 10:38 | External Medical Summary ---
Author Name Unknown Address Unknown Organization [facility] [employer] Chemistry:[facility] [employer] [facility] [address] [place] [address] Laboratory Report Ordering Provider Test Date Status Renata Holley 03/19/2024 20:07:00 Final Observation Date Value Abnormality Reference (Units ) Status Natriuretic peptide.B prohormone N-Terminal [Mass/volume] in Blood by Immunoassay 03/19/2024 21:05:49 41 <=124 (pg/mL) Final Performing Location [facility] [employer] Service Order Taker ry [address] [place] [address]
--- OUTSIDE RECORDS SUMMARY | 2024-06-18 10:38 | External Medical Summary ---
Author Name Unknown Address Unknown Organization [facility] [employer] [facility] [employer] [facility] [address] [place] [address] Laboratory Report Ordering Provider Test Date Status Quincy Holleyraheempriyankakanwal 03/19/2024 20:07:00 Final Observation Date Value Abnormality Reference (Units ) Status Leukocytes [#/volume] in Blood by Automated count 03/19/2024 20:27:17 12.77 Above high normal 4.00-10.40 (K/uL) Final Erythrocytes [#/volume] in Blood by Automated count 03/19/2024 20:27:17 4.78 4.40-5.60 (M/uL) Final Hemoglobin [Mass/volume] in Blood 03/19/2024 20:27:17 14.4 13.0-17.0 (g/dL) Final Hematocrit [Volume Fraction] of Blood by Automated count 03/19/2024 20:27:17 42.0 35.0-44.0 (%) Final MCV [Entitic volume] by Automated count 03/19/2024 20:27:17 87.9 81.0-96.0 (fL) Final MCH [Entitic mass] by Automated count 03/19/2024 20:27:17 30.1 28.0-33.0 (pg) Final MCHC [Mass/volume] by Automated count 03/19/2024 20:27:17 34.3 32.0-36.0 (g/dL) Final Erythrocyte distribution width [Ratio] by Automated count 03/19/2024 20:27:17 13.7 11.5-14.2 (%) Final Platelets [#/volume] in Blood by Automated count 03/19/2024 20:27:17 271 150-350 (K/uL) Final Erythrocyte distribution width [Entitic volume] by Automated count 03/19/2024 20:27:17 44 Final Platelet mean volume [Entitic volume] in Blood by Automated count 03/19/2024 20:27:17 9.4 9.0-12.2 (fL) Final Nucleated erythrocytes/100 cells in Bone marrow by Manual count 03/19/2024 20:27:17 0 (/100 WBCs) Final Nucleated erythrocytes [#/volume] in Blood by Manual count 03/19/2024 20:27:17 0.00 (K/uL) Final Performing Location [facility] [employer] [facility] [address] [place] [address]
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
--- OUTSIDE RECORDS SUMMARY | 2024-06-18 10:38 | External Medical Summary ---
Author Name Unknown Address Unknown Organization [facility] [employer] [facility] [employer] [facility] [address] [place] [address] Laboratory Report Ordering Provider Test Date Status Renata Holley 03/19/2024 20:07:00 Final Observation Date Value Abnormality Reference (Units ) Status Lactate [Moles/volume] in Serum or Plasma 03/19/2024 20:37:15 1.9 0.5-2.2 (mmol/L) Final Performing Location [facility] [employer] Buggy Driver ry [address] [place] [address]
--- OUTSIDE RECORDS SUMMARY | 2024-06-18 10:38 | External Medical Summary ---
Author Name Unknown Address Unknown Organization [facility] [employer] Chemistry:[facility] [employer] [facility] [address] [place] [address] Laboratory Report Ordering Provider Test Date Status Renata Holley 03/19/2024 20:07:00 Final Observation Date Value Abnormality Reference (Units ) Status C reactive protein [Mass/volume] in Serum or Plasma 03/19/2024 20:51:26 <0.30 <=0.49 (mg/dL) Final Performing Location [facility] [employer] Greige Goods Examiner ry [address] [place] [address]
--- OUTSIDE RECORDS SUMMARY | 2024-06-18 10:38 | External Medical Summary ---
Author Name Unknown Address Unknown Organization : Laboratory Report Ordering Provider Test Date Status DENZEL DE LOS SANTOS 02/10/2024 07:15:25 Final Observation Date Value Abnormality Reference (Units ) Status Glucose Point of Care 02/10/2024 07:15:25 97 70-120 (mg/dL) Final Performing Location
--- OUTSIDE RECORDS SUMMARY | 2024-06-18 10:38 | External Medical Summary | Summary of Care ---
Author Name Unknown Organization [facility] Address [address] [place] [address] Phone [phone] Care Team Providers Care Field Representative Name Role Phone Mulugeta Arnett MD Primary Care Provider Reason for Visit * Reason Comments Acute Encounter Details Date Type Department Care Team ([facility] Contact Info) Description 03/11/2024 11:20 AM EDT Office Visit [facility] [address] [facility] [place] [address] Rigoberto Marmolejo PA-C [address], [place] [id number] Anxiety*; Chronic low back pain with sciatica, sciatica laterality unspecified, unspecified back pain laterality Allergies No known active allergiesdocumented as of this encounter (statuses as of 03/11/2024) Medications Medication Sig Dispensed Refills Start Date End Date Status Cyclobenzaprine HCl 10 MG Oral Tablet (Flexeril) Take 1 Tablet by mouth at bedtime as needed for Muscle spasms. 10 Tablet 10/15/2023 Active Diclofenac Sodium 75 MG Oral Tablet Delayed Release (Voltaren)Indicat ions:Chronic low back pain with sciatica, sciatica laterality unspecified, unspecified back pain laterality Take 1 Tablet by mouth in the morning and 1 Tablet before bedtime. With food.. 60 Tablet 03/11/2024 Active predniSONE 10 MG Oral Tablet (Deltasone)Indica tions:Chronic low back pain with sciatica, sciatica laterality unspecified, unspecified back pain laterality Take 5 tabs for 2 days, 4 tabs for 2 days, 3 tabs for 2 days, 2 tabs for 2 days 1 tab for 2 days 30 Tablet 03/11/2024 Active hydrOXYzine HCl 10 MG Oral Tablet (Atarax)Indicatio ns:Anxiety Take 1 Tablet by mouth every 8 hours as needed for Anxiety. 30 Tablet 03/11/2024 Active Albuterol Sulfate HFA 108 (90 Base) MCG/ACT Inhalation Aerosol Solution Inhale 2 Puffs by mouth every 6 hours as needed for Dyspnea. 18 g 10/15/2023 03/11/2024 Discontinued (Medication List Clean Up) Nicotine 21 MG/24HR Transdermal Patch 24 Hour (Nicoderm CQ) Place 1 Patch over 24 hours topically on the skin in the morning. 10/16/2023 03/11/2024 Discontinued (Medication List Clean Up) OXcarbazepine 150 MG Oral Tablet (Trileptal) Take 1 Tablet by mouth in the morning and 1 Tablet before bedtime. 30 Tablet 1 10/15/2023 03/11/2024 Discontinued (Medication List Clean Up) OLANZapine 10 MG Oral Tablet (zyPREXA) Take one-half Tablet by mouth in the morning and one-half Tablet before bedtime. 15 Tablet 1 10/15/2023 03/11/2024 Discontinued (Medication List Clean Up) Albuterol Sulfate HFA 108 (90 Base) MCG/ACT Inhalation Aerosol Solution Inhale 2 Puffs by mouth every 4 hours as needed for Cough. 18 g 01/04/2024 03/11/2024 Discontinued (Medication List Clean Up) documented as of this encounter (statuses as of 03/11/2024) Active Problems Problem Noted Date Diagnosed Date [...] as of this encounter (statuses as of 03/11/2024) Resolved Problems Problem Noted Date Diagnosed Date Resolved Date Aggressive behavior 10/07/2023 10/15/19 24 Psychosis 10/07/2023 10/15/2023 Cellulitis of right leg 07/12/2023 07/ Sepsis without acute organ dysfunction 07/12/2023 03/11/2024 Tobacco use disorder 09/03/2015 024 documented as of this encounter (statuses as of 03/11/2024) Immunizations Name Administration Dates Next Due DTaP [...] Sign Reading Time Taken Comments Blood Pressure 115/76 03/11/2024 11:25 AM EDT Pulse 98 03/11/2024 11:25 AM EDT Temperature 36 C (96.8 F) 03/11/2024 11:25 AM EDT Respiratory Rate 16 03/11/2024 11:25 AM EDT Oxygen Saturation 98% 03/11/2024 11:25 AM EDT Inhaled Oxygen Concentration - - Weight 66.5 kg (146 lb 8 oz) 03/11/2024 11:25 AM EDT Height - - Body Mass Index 22.28 02/10/2024 7:07 AM EDT documented in this [...] as of this encounter Progress Notes * Rigoberto Marmolejo PA-C - 03/11/2024 11:37 AM EDT Subjective: Luis Toro is a 23 year old male. Chief Complaint Patient presents with Acute HPI: C/O increasing anxiety for the past month. Had been on zypreza and trileptal-stopped taking those. Does not want to see a psychiatrist. Wants some xanax to take the "edge off". Stopped all illicit drug use-trying to get a job. Not eating or sleeping well. No suicidal or homicidal ideations. C/O chronic low back pain-wants flexeril again. Stopped the suboxone on his own-not willing to go backon. No family history on file. PHM: Patient Active Problem List Diagnosis Depression Major depressive disorder, recurrent (HCC) Methamphetamine use disorder, severe (HCC) Crack cocaine use Pulmonary nodules IV drug abuse (HCC) Left against medical advice Bacteremia due to methicillin susceptible Staphylococcus aureus (MSSA) History of posttraumatic stress disorder (PTSD) Opioid use disorder Tobacco use disorder History of depression Current Outpatient Medications Medication Sig Dispense Refill Diclofenac Sodium 75 MG Oral Tablet Delayed Release (Voltaren) Take 1 Tablet by mouth in the morning and 1 Tablet before bedtime. With food.. 60 Tablet 0 predniSONE 10 MG Oral Tablet (Deltasone) Take 5 tabs for 2 days, 4 tabs for 2 days, 3 tabs for 2 days, 2 tabs for 2 days 1 tab for 2 days 30 Tablet 0 hydrOXYzine HCl 10 MG Oral Tablet (Atarax) Take 1 Tablet by mouth every 8 hours as needed for Anxiety. 30 Tablet 0 Cyclobenzaprine HCl 10 MG Oral Tablet (Flexeril) Take 1 Tablet by mouth at bedtime as needed for Muscle spasms. 10 Tablet 0 No current facility-administered medications for this visit. Past Medical History: Diagnosis Date Major depressive disorder, recurrent (HCC) Methamphetamine dependence (HCC) PTSD (post-traumatic stress disorder) Tobacco use disorder Review of patient's allergies indicates: No Known Allergies Objective: BP 115/76 | Pulse 98 | Temp 36 C (96.8 F) (Tympanic) | Resp 16 | Wt 66.5 kg (146 lb 8 oz) | SpO2 98% | BMI 22.28 kg/m | BSA 1.79 m General: alert, healthy, and appears slightly anxious Affect: Dressed appropriately. Makes eye contact when speaking. Head: Normocephalic, No masses, lesions, tenderness or abnormalities Eye Exam: PERRLA, extraocular movements intact, conjunctiva are pink and non- injected, sclera clear Ears: External ears normal, Canals clear, TM's Normal Nose: no mucosal erythema, no mucosal edema, no purulent discharge Oropharynx: no exudate, no erythema, lips, buccal mucosa, and tongue normal, and mucous membranes are moist Neck: supple, no adenopathy, no bruits, thyroid normal size, non-tender, without nodularity Heart: regular rate & rhythm, no murmur, and no gallops Lungs: chest symmetric with normal AP diameter, no chest deformities noted, no chest wall tenderness, lungs clear to auscultation Pulses: carotid=2/4 w/o bruits Abdomen: abdomen soft, non-tender, normal bowel sounds, and no masses or organomegaly Back: back symmetric, no curvature, no costovertebral angle tenderness, range of motion is normal Extremities: less than 2 second capillary refill, no joint deformities, effusion, or inflammation Neuro Exam: alert & oriented x 3 with fluent speech, no focal motor/sensory deficits, gait normal, reflexes normal and symmetric Skin: skin color, texture, turgor are normal, no rashes or significant lesions Assessment/Plan: Anxiety (Primary) Note: wants xanax or ativan - hydrOXYzine HCl 10 MG Oral Tablet (Atarax); Take 1 Tablet by mouth every 8 hours as needed for Anxiety. - Offered psychiatry referral-does not want to go at this time - F/U if symptoms persist Chronic low back pain with sciatica, sciatica laterality unspecified, unspecified back pain laterality Note: wants flexeril and/or gabapentin - Diclofenac Sodium 75 MG Oral Tablet Delayed Release (Voltaren); Take 1 Tablet by mouth in the morning and 1 Tablet before bedtime. With food.. - predniSONE 10 MG Oral Tablet (Deltasone); Take 5 tabs for 2 days, 4 tabs for 2 days, 3 tabs for 2days, 2 tabs for 2 days 1 tab for 2 days - Ice or heat prn - Activities as tolerated - F/U if symptoms persist I spent a total of 20-29 minutes (exact time 22 mins) on the date of service in preparation, delivery, and documentation of the care provided to Luis Toro excluding any time spent in the performance of separately billed services or time spent by another provider/QHP. Rigoberto Marmolejo PA-C 03/11/2024 11:44 AM documented in this encounter Plan of Treatment Health Maintenance [...] 1999, 1999 MENINGOCOCCAL (MENACTRA/MENVEO) Completed , 01/03/2011 HIV Screening Completed 09/15/2021 Hepatitis C Screening Completed 09/15/2021 , 09/15/2021, 09/15/2021, Additional history exists documented as of this encounter Medical Devices Not on filedocumented as of this encounter Visit Diagnoses Diagnosis Anxiety- Primary Anxiety state, unspecified Chronic low back pain with sciatica, sciatica laterality unspecified, unspecified back pain laterality documented in this encounter Advance Directives * [...] and were consensually agreed upon. Care Teams Field Representative Relationship Specialty Start Date End Date Mulugeta Arnett MD [address] [id number] PCP - General Family Medicine 07/16/23 documented as of this encounter
--- OUTSIDE RECORDS SUMMARY | 2024-06-18 10:38 | External Medical Summary ---
Author Name Unknown Address Unknown Organization [facility] [employer] Chemistry:[facility] [employer] Chemistry [address] [place] [address] Laboratory Report Ordering Provider Test Date Status Renata Holley 03/19/2024 20:07:00 Final Observation Date Value Abnormality Reference (Units ) Status Creatine kinase [Enzymatic activity/volume] in Serum or Plasma 03/19/2024 23:09:57 41 39-308 (unit/L) Final Performing Location [facility] [employer] Accordion Maker ry [address] [place] [address]
--- OUTSIDE RECORDS SUMMARY | 2024-06-18 10:38 | External Medical Summary ---
Author Name Unknown Address Unknown Organization [facility] [employer] [facility] [employer] [facility] [address] [place] [address] Laboratory Report Ordering Provider Test Date Status Renata Holley 03/19/2024 20:07:00 Final Observation Date Value Abnormality Reference (Units ) Status Acetaminophen [Mass/volume] in Serum or Plasma 03/19/2024 21:05:49 <5.0 Below low normal 10.0-30.0 (ug/mL) Final Performing Location [facility] [employer] Ass[employer] Sourcing Manager ry [address] [place] [address]
--- OUTSIDE RECORDS SUMMARY | 2024-06-18 10:38 | External Medical Summary ---
Author Name Unknown Address Unknown Organization [facility] [address] [place] [address] Laboratory Report Ordering Provider Test Date Status Renata Holley 03/19/2024 20:07:00 Final Observation Date Value Abnormality Reference (Units ) Status Phosphate [Mass/volume] in Serum or Plasma 03/19/2024 21:05:49 2.2 Below low normal 2.5-4.5 (mg/dL) Final Performing Location [facility] Public Address Systems Mechanic ry [address] [place] [address]
--- OUTSIDE RECORDS SUMMARY | 2024-06-18 10:38 | External Medical Summary | Summary of Care ---
Author Name Unknown Organization [facility] Address [address] [place] [address] Phone [phone] Care Team Providers Care Bull Float Finisher Name Role Phone Mulugeta Arnett MD Primary Care Provider Encounter Details Date Type Department Care Team ([facility] st Contact Info) Description 02/11/2024 Population Health External Data Unspecified Department Allergies No known active allergiesdocumented as of this encounter (statuses as of 02/11/2024) Medications Medication Sig Dispensed Refills Start Date [...] as of this encounter (statuses as of 02/11/2024) Active Problems Problem Noted Date Diagnosed Date [...] as of this encounter (statuses as of 02/11/2024) Resolved Problems Problem Noted Date Diagnosed Date Resolved Date Aggressive behavior 10/07/2023 10/15/19 24 Psychosis 10/07/2023 10/15/2023 Tobacco use disorder 09/03/2015 024 documented as of this encounter (statuses as of 02/11/2024) Immunizations Name Administration Dates Next Due DTaP Dipth/Tet/Acell Pertussis (Infanrix), Peds 03/28/2005,10/24/2000,03/22/2000,01/18,1999 HIB PRP-T, 4 Dose, PF, IM (Hiberix) 10/11,03/22/2000,01/19/2000,10/18 HPV Vaccine, 4-Valent 01/03/2011 Hepatitis A, Ped/Adol., [...] 009 Depression Monitoring 10/14/2024 10/15/2023 Hepatitis B Completed [...] and were consensually agreed upon. Care Teams Bull Float Finisher Relationship Specialty Start Date End Date Mulugeta Arnett MD [address] [address] PCP - General Family Medicine 07/16/23 documented as of this encounter
--- OUTSIDE RECORDS SUMMARY | 2024-06-18 10:38 | External Medical Summary | Summary of Care ---
Author Name Unknown Organization [facility] Address [address] [place] [address] Phone [phone] Care Team Providers Care Sports Management Professor Name Role Phone Mulugeta Arnett MD Primary Care Provider Reason for Visit * Reason Comments Other Clearance for prison * Auth/Cert Specialty Diagnoses / Procedures Referred By Juany t Referred To Contact [facility] [address] [place] [address] Phone: [phone] Emergency Medicine [address] [address] Referral ID Status Reason Start Date Expiration Date Visits Re quested Visits Authorized [id number] Encounter Details Date Type Department Care Team (Late st Contact Info) Description 02/10/2024 7:04 AM EDT - 02/10/2024 7:34 AM EDT Emergency [facility] ([facility]) [address] [place] [address] Tee Whitehead MD [address] [place] [address] Encounter for medical screening examination (Primary Dx) Discharge Disposition: Other Allergies No known active allergiesdocumented as of this encounter (statuses as of 02/10/2024) Medications Medication Sig Dispensed Refills Start Date [...] as of this encounter (statuses as of 02/10/2024) Active Problems Problem Noted Date Diagnosed Date [...] as of this encounter (statuses as of 02/10/2024) Resolved Problems Problem Noted Date Diagnosed Date Resolved Date Aggressive behavior 10/07/2023 10/15/19 Psychosis 10/07/2023 10/15/2023 Tobacco use disorder 09/03/2015 024 documented as of this encounter (statuses as of 02/10/2024) Immunizations Name Administration Dates Next Due DTaP [...] Sign Reading Time Taken Comments Blood Pressure 146/103 02/10/2024 7:07 AM EDT Pulse 106 02/10/2024 7:07 AM EDT Temperature 36.9 C (98.4 F) 02/10/2024 7:07 AM ED T Respiratory Rate 20 02/10/2024 7:07 AM EDT Oxygen Saturation 97% 02/10/2024 7:07 AM EDT Inhaled Oxygen Concentration - - Weight 69.4 kg (153 lb) 02/10/2024 7:07 AM EDT Height 172.7 cm (5' 8") 02/10/2024 7:07 AM EDT Body Mass Index 23.26 02/10/2024 7:07 AM EDT documented in this [...] this encounter Discharge Instructions * Discharge Instructions* Tee Whitehead MD - 02/10/2024 7:18 AM EDT The patient has no acute or chronic medical problems precluding there discharge into police custody. Please return to the ER for any new or worsening symptoms otherwise. documented in this encounter ED Notes * Tee Whitehead MD - 02/10/2024 7:17 AM EDT HISTORY OF PRESENT ILLNESS Luis Toro is a 23 year old male who presents to the ED for evaluation of Other (Clearance for prison). The patient was seen at 02/10/24 0707. Patient brought in by police custody due to acting excessively sleepy during his prison booking. They brought him here for medical clearance. The patient denies using drugs, alcohol. Denies any trauma, falls, injuries. States that he slept a few hours last night. Denies any complaints upon arrival. No known drug allergies The patient's allergies, past history, and medications were reviewed. PHYSICAL EXAM Initial Vitals (see all): BP 146/103 | Pulse 106 | Resp 20 | Temp 98.4 | O2 97 %Weight 69.4 kg | Height 172.7 cm | BMI 23.26 kg/m2 Initial Pain Assessment (see all): 0 (no pain)/10 ([facility] Adult Scale 0-10) Physical Exam Vitals and nursing note reviewed. Constitutional: General: He is not in acute distress. Appearance: Normal appearance. He is well-developed. He is not ill-appearing, toxic-appearing or diaphoretic. HENT: Head: Normocephalic and atraumatic. Nose: Nose normal. Mouth/Throat: Mouth: Mucous membranes are moist. Pharynx: Oropharynx is clear. Eyes: General: No scleral icterus. Extraocular Movements: Extraocular movements intact. Conjunctiva/sclera: Conjunctivae normal. Pupils: Pupils are equal, round, and reactive to light. Neck: Thyroid: No thyromegaly. Vascular: No JVD. Cardiovascular: Rate and Rhythm: Regular rhythm. Tachycardia present. Heart sounds: Normal heart sounds. No murmur heard. No friction rub. No gallop. Pulmonary: Effort: Pulmonary effort is normal. No respiratory distress. Breath sounds: Normal breath sounds. No wheezing or rales. Chest: Chest wall: No tenderness. Abdominal: General: Bowel sounds are normal. There is no distension. Palpations: Abdomen is soft. There is no mass. Tenderness: There is no abdominal tenderness. There is no guarding or rebound. Musculoskeletal: General: No swelling, tenderness, deformity or signs of injury. Normal range of motion. Cervical back: Normal range of motion and neck supple. No muscular tenderness. Skin: General: Skin is warm and dry. Neurological: General: No focal deficit present. Mental Status: He is alert. Mental status is at baseline. Comments: Moving all extremities spontaneously Psychiatric: Mood and Affect: Mood normal. Behavior: Behavior normal. PROCEDURES AND TREATMENTS ED Orders | ED Results MEDICAL DECISION MAKING Nursing notes and vital signs were reviewed. ED Course as of 02/10/24 0721 Sun Feb 10, 2024 0717 Fingerstick blood sugar 97 [MM] 0717 BP: 146/103 [MM] 0717 Pulse: 106 [MM] 0717 Resp: 20 [MM] 0717 SpO2: 97 % [MM] 0717 Temp: 36.9 C (98.4 F) [MM] ED Course User Index [MM] Tee Whitehead MD Patient here for medical clearance. Patient is acting mildly intoxicated, does not have slurred speech, does not smell of alcohol. He stays awake during my entire evaluation. He is not dozing off. His vital signs are overall unremarkable other than mild tachycardia. Fingerstick blood sugar 97 this morning. Physical examination shows no signs of head trauma. The patient has no acute or chronic medical problems precluding his discharge into police custody. Patient cleared for prison. Return precautions given. Clinical Impressions Encounter for medical screening examination Disposition Discharged. The patient's condition at disposition was: stable. Tee Whitehead * Indy Richey RN - 02/10/2024 7:08 AM EDT Patient brought in by police for medical clearance for prison documented in this encounter Miscellaneous Notes * ED Glass Engraver Note - Indy Richey RN - 02/10/2024 7:32 AM EDT D/c instructions given to police. Patient ambulated from ED in their custody. documented in this encounter Plan of Treatment [...] Procedure Name Priority Date/Time Associated Diagnosis Comments GLUCOSE METER, POINT OF CARE BLADIMIR 02/10/2024 7:15 AM EDT documented in this encounter Results * GLUCOSE METER, POINT OF CARE (02/10/2024 7:15 AM EDT) Glucose Meter 97 70 - 120 mg/dL 02/10/2024 7:59 AM EDT [facility] Blood Whole blood specimen / Unknown 02/10/2024 7:15 AM EDT 02/10/2024 7:59 AM EDT Tee Whitehead MD LAB POINT OF CARE TE ST DOCKED DEVICE UNSOLICITED RESULTS [facility] [address] [place] [id number] documented in this encounter Visit Diagnoses Diagnosis Encounter for medical screening examination- Primary documented in this encounter Advance Directives * [...] and were consensually agreed upon. Care Teams Sports Management Professor Relationship Specialty Start Date End Date Mulugeta Arnett MD [address] [facility] [place] [address] PCP - General Family Medicine 07/16/23 documented as of this encounter
--- OUTSIDE RECORDS SUMMARY | 2024-06-18 10:38 | External Medical Summary ---
Author Name Unknown Address Unknown Organization [facility] [address] [place] [address] Laboratory Report Ordering Provider Test Date Status Renata Holley 03/19/2024 20:07:00 Final Observation Date Value Abnormality Reference (Units ) Status Salicylates [Mass/volume] in Serum or Plasma 03/19/2024 20:49:06 <1.0 <=19.9 (mg/dL) Final Performing Location [facility] [employer] ry [address] [place] [address]
--- OUTSIDE RECORDS SUMMARY | 2024-06-18 10:38 | External Medical Summary ---
Author Name Unknown Address Unknown Organization [facility] [place] Chemistry:[facility] [address] [place] [address] Laboratory Report Ordering Provider Test Date Status Amrit Holleykanwal 03/19/2024 20:07:00 Final Observation Date Value Abnormality Reference (Units ) Status Glucose [Mass/volume] in Serum or Plasma 03/19/2024 21:05:49 141 Above high normal 74-109 (mg/dL) Final Urea nitrogen [Mass/volume] in Serum or Plasma 03/19/2024 21:05:49 19 6-23 (mg/dL) Final Creatinine [Mass/volume] in Serum or Plasma 03/19/2024 21:05:49 0.75 0.70-1.30 (mg/dL) Final GLOMERULAR FILTRATION RATE/1.73 SQ M.PREDICTED:ARVRAT:PT:SER /PLAS/BLD:QN:CREATININE AND CYSTATIN C-BASED FORMULA (CKD-EPI 2020) 03/19/2024 21:05:49 >90 >=60 (mL/min/1.73 m2) Final Sodium [Moles/volume] in Serum or Plasma 03/19/2024 21:05:49 142 136-145 (mmol/L) Final Potassium [Moles/volume] in Serum or Plasma 03/19/2024 21:05:49 4.0 3.5-5.1 (mmol/L) Final Chloride [Moles/volume] in Serum or Plasma 03/19/2024 21:05:49 102 98-107 (mmol/L) Final Carbon dioxide, total [Moles/volume] in Serum or Plasma 03/19/2024 21:05:49 26 22-29 (mmol/L) Final Anion gap 3 in Serum or Plasma 03/19/2024 21:05:49 14 5-14 (mmol/L) Final Calcium [Mass/volume] in Serum or Plasma 03/19/2024 21:05:49 9.8 8.4-10.2 (mg/dL) Final Protein [Mass/volume] in Serum or Plasma 03/19/2024 21:05:49 8.0 6.4-8.3 (g/dL) Final Albumin [Mass/volume] in Serum or Plasma by Bromocresol green (BCG) dye binding method 03/19/2024 21:05:49 4.6 3.5-5.2 (g/dL) Final Bilirubin.total [Mass/volume] in Serum or Plasma 03/19/2024 21:05:49 <0.1 0.0-1.2 (mg/dL) Final Aspartate aminotransferase [Enzymatic activity/volume] in Serum or Plasma 03/19/2024 21:05:49 18 0-40 (unit/L) Final Alanine aminotransferase [Enzymatic activity/volume] in Serum or Plasma 03/19/2024 21:05:49 38 0-41 (unit/L) Final Alkaline phosphatase [Enzymatic activity/volume] in Serum or Plasma 03/19/2024 21:05:49 81 40-130 (unit/L) Final Performing Location [facility] [employer] Water Pumper ry [address] [address]
--- OUTSIDE RECORDS SUMMARY | 2024-06-18 10:38 | External Medical Summary ---
Author Name Unknown Address Unknown Organization [facility] [address] [place] [address] Laboratory Report Ordering Provider Test Date Status Renata Holley 03/19/2024 18:38:00 Final Observation Date Value Abnormality Reference (Units ) Status Specimen source identified 03/19/2024 20:55:34 Nasopharyngeal^N asopharyngeal Final Whether this is the patient's first test for condition of interest 03/19/2024 20:55:34 Not Given^Not Given Final Whether the patient has symptoms related to condition of interest 03/19/2024 20:55:34 Yes^Yes Final Whether patient is employed in a healthcare setting 03/19/2024 20:55:34 No^No Final Whether patient resides in a congregate care setting 03/19/2024 20:55:34 Not Given^Not Given Final Whether the patient was hospitalized for condition of interest 03/19/2024 20:55:34 Not Given^Not Given Final Whether the patient was admitted to intensive care unit (ICU) for condition of interest 03/19/2024 20:55:34 No^No Final Are you currently [PhenX] 03/19/2024 20:55:34 Not Given^Not Given Final Race 03/19/2024 20:55:34 Not Given^Not Given Final Race or ethnicity 03/19/2024 20:55:34 Not Given^Not Given Final SARS-CoV-2 (COVID-19) RNA [Presence] in Nasopharynx by [facility] with probe detection 03/19/2024 20:55:34 Not Detected^Not Detected Not Detected Final This assay has been granted an Emergency Use Authorization (EUA) by the U.S. Food and drug Administration. The performance of the assay ([employer]) has been verified by the [facility] Virology laboratory. Reported to [facility] Influenza virus A RNA [Presence] in Upper respiratory specimen by [facility] with probe detection 03/19/2024 20:55:34 Negative^Negative Negative Final No Influenza A Detected. A n egative result does not rule out the possibility of influenza infection as the sensitivity of this test is approximately 98%. Patients being admitted to [facility] should have the RVP assay ordered. Haemophilus influenzae B DNA [Presence] in Specimen by [facility] with probe detection 03/19/2024 20:55:34 Negative^Negative Negative Final Respiratory syncytial virus RNA [Presence] in Respiratory specimen by [facility] with probe detection 03/19/2024 20:55:34 Negative^Negative Negative Fin al Performing Location [facility] [employer] [address] [place] [address]
--- OUTSIDE RECORDS SUMMARY | 2024-06-18 10:38 | External Medical Summary ---
Author Name Unknown Address Unknown Organization [facility] [address] [place] [address] Laboratory Report Ordering Provider Test Date Status Renata Holley 03/19/2024 20:07:00 Final Observation Date Value Abnormality Reference (Units ) Status Magnesium [Mass/volume] in Serum or Plasma 03/19/2024 21:05:49 1.8 1.6-2.6 (mg/dL) Final Performing Location [facility] Sales Representative [employer] ry [address] [place] [address]
--- OUTSIDE RECORDS SUMMARY | 2024-06-18 10:39 | External Medical Summary | Summary of Care ---
Author Name Unknown Organization [facility] Address [address] [place] [address] Phone [phone] Care Team Providers Care Humanities Instructor Name Role Phone Mulugeta Arnett MD Primary Care Provider Reason for Referral * Evaluate & Treat - Unlimited Visits (Within 3 days (urgent)) - Pending Review Specialty Diagnoses / Procedures Referred By Contac t Referred To Contact Addiction Medicine Diagnoses Tobacco use disorder Methamphetamine use disorder, severe (HCC) IVDU (intravenous drug user) Opioid use disorder Len Singer MD [address] [place] [address] Referral ID Status Reason Start Date Expiration Date Visits Requested Visits Authorized [id number] Pending Review Specialty Services Required 01/04/2024 [id number] Question Answer Referral Priority Within 3 days (urgent) Where should this appointment be scheduled? [facility] Was the patient hospitalized for their addiction in the past in the past 6 months? No Has the patient overdosed on any substance in the past? Unknown Reason for Referral: Opioid Comments Requests restart of buprenorphine treatment Discharge Order Reason for Visit * Reason Comments Chest Pain * Auth/Cert Specialty Diagnoses / Procedures Referred By Contac t Referred To Contact [facility] [address] [place] [address] Phone: [phone] Emergency Medicine [address] [address] Referral ID Status Reason Start Date Expiration Date Visits Re quested Visits Authorized [id number] Encounter Details Date Type Department Care Team ([facility] st Contact Info) Description 01/03/2024 11:08 PM EDT - 01/04/2024 2:06 AM EDT Emergency [facility] Emergency Department ([facility]) [address] [phone] Len Singer MD [address] [phone] Tobacco use disorder (Primary Dx); Chest pain; Bronchospasm; Methamphetamine use disorder, severe (HCC); IVDU (intravenous drug user); Opioid use disorder Discharge Disposition: Home - Self Care Allergies No known active allergiesdocumented as of this encounter (statuses as of 01/04/2024) Medications Medication Sig Dispensed Refills Start Date [...] needed for Cough. 18 g 01/04/2024 Active documented as of this encounter (statuses as of 01/04/2024) Active Problems Problem Noted Date Diagnosed Date [...] as of this encounter (statuses as of 01/04/2024) Resolved Problems Problem Noted Date Diagnosed Date Resolved Date Aggressive behavior 10/07/2023 10/15/19 24 Psychosis 10/07/2023 10/15/2023 Tobacco use disorder 09/03/2015 024 documented as of this encounter (statuses as of 01/04/2024) Immunizations Name Administration Dates Next Due DTaP Dipth/Tet/Acell Pertussis (Infanrix), Peds 03/28/2005,10/24/2000,03/22/2000,01/18,1999 HIB PRP-T, 4 dose (ActHib) 10/24/2000,,01/19/2000,10/18 HPV Vaccine, 4-Valent 01/03/2011 Hep A - Hepatitis A (ped/ado le, 1-18 Yrs) 01/03/2011 Hepatitis B, 0-19 yrs 01/19/2000,1999,07/13 IPV - Polio Virus Vaccine (Inact) 2004,03/22/2000,01/19/2000,10/18 MMR - Measles/Mumps/Rubella Vaccine 03/28/2005,0 10/24/2000 Meningococcal Conjugate Vacc ine (Menactra/Menveo) 09/03/2015,01/03/2011 PPD 06/04/2023 Pneumococcal Conjugate Vacci ne, 7 Valent 01/23/2001,10/24/2000 Seasonal Influenza, Split, I IV3, With Preserve, Inj 06/10/2009 TDAP (age 11 and older)(Adacel) 01/03/2011 Varicella Vaccine (Chicken Pox) 01/03/2011,01/23 documented [...] Recorded PHQ Adult Total Score 5 10/15/2023 Sex and Gender Information Value Date Recorded Sex Assigned at Male 12/04/2023 4:41 PM EDT Gender Identity Male 12/04/2023 4:41 PM EDT Sexual Orientation Straight 12/04/2023 4: 41 PM EDT Job Start Date Occupation Industry Not on file Not on file Not on file documented as of this encounter Last Filed Vital Signs Vital Sign Reading Time Taken Comments Blood Pressure 158/105 01/04/2024 12:42 AM EDT Pulse 112 01/04/2024 12:42 AM EDT Temperature 37.1 C (98.8 F) 01/03/2024 11:11 PM E DT Respiratory Rate 22 01/04/2024 12:42 AM EDT Oxygen Saturation 100% 01/03/2024 11:11 PM EDT Inhaled Oxygen Concentration - - Weight 69.4 kg (153 lb) 01/03/2024 11:11 PM EDT Height 172.7 cm (5' 8") 01/03/2024 11:11 PM EDT Body Mass Index 23.26 01/03/2024 11:11 PM EDT documented in this encounter Functional [...] this encounter Discharge Instructions * Discharge Instructions* Len Singer MD - 01/04/2024 1:59 AM EDT The ER doctor asked for a buprenorphine appointment for you, this will be in the [facility] Medicine offices with telemedicine by in addiction doctor who will probably be talking to you from the [facility]. Make sure you are available on your preferred phone number so they can call you to make sure you know when the appointment is. Back to ER if any warning signs or problems documented in this encounter ED Notes * Kyle Alvarado RN - 01/03/2024 11:14 PM EDT Patient arrives to the ED with complaints of chest pain. Patient was brought into the ED after being pulled over for a DUI. Police reports patient took fentanyl, meth, and bups earlier tonight. Refused legal blood draw and was brought to the ED due to his chest pain. documented in this encounter Miscellaneous Notes * ED Medicare Nurse Note - Cathy Cisneros RN - 01/04/2024 2:06 AM EDT Discharge instructions reviewed with patient who verbalized understanding. Patient to follow up with PCP and return to the ED for new or worsening symptoms. Patient ambulated from the unit with a strong and steady gait with all belongings. * Pt Handout (on AVS) - Len Singer MD - 01/04/2024 2:00 AM EDT [id number] Opiate Use Disorder Use or abuse of heroin or prescription pain medicines may lead to addition or dependence. Examples of pain medicines are oxycodone, codeine, hydrocodone, morphine, methadone, and fentanyl. Once this occurs, you are at greater risk for any of these: Craving for the drug. Being unable to stop using the drug even though you think you want to stop. This is psychological addiction. Drug withdrawal symptoms if you stop taking the drug (physical dependence) Loss of your job or your family Arrest, conviction, and intermediate sentence for possession of an illegal substance. Or for driving under the influence of such a substance. Accidental injuries to yourself or others while you are under the influence of the drug in a caror at home or serious injury from overdose Xylazine is a sedative and pain reliever approved only for animals. It's not approved or safe for people. It's known by the street name tranq. Xylazine has been found in street drugs, especially heroin and fentanyl. It has been linked to overdoses and . Severe side effects from xylazine include slow heart beat and breathing, low blood pressure, skin sores, and coma. Health problems The list of potential health problems is a long one. It can be different with different medicines. They can cause problems even if you have no history of health problems. It's also affected by other medicines you may be taking. And it's affected by chronic illnesses you may have. Besides the problems listed above, abuse also has other effects. Some are tied directly to the drugs. Others are from or related to addiction or dependency. Anxiety Seizures Constipation Liver infection (hepatitis) Liver failure Blood pressure problems Depression Suicidal thoughts or attempts Insomnia Nausea, vomiting, and stomach problems Drowsiness Slurred speech Trouble breathing Dizziness Skin infections Muscle pain and spasms Stroke Heart attack Kidney failure HIV infection Skin infections Other sexually transmitted infections Severe and fatal infection of the heart valves Coma and Home care Admit you have a drug problem. Ask for help from your family, close friends. and your healthcareprovider. Seek professional help. This could be one-on-one psychotherapy, counseling, or a drug treatment program. The drug treatment program could be outpatient or residential. Join a self-help group for people who abuse drugs. Stay away from friends, family, and acquaintances who abuse drugs themselves or tempt you to continue your habit. Eat a balanced diet. Begin a regular exercise program. Follow-up care Follow up with your healthcare provider, or as advised. Contact one of the resources below for help: National [place] on Alcoholism and Drug Dependence at ncaddms.org/ Substance Abuse and Mental Health Services Administration at www.sama.gov/find-treatment or 448-835-SOOO (048-765-7348) Call 911 Call 911 if any of these occur: Seizure Trouble breathing or slow, irregular breathing Chest pain Sudden weakness on one side of your body or sudden trouble speaking Very drowsy or trouble awakening Fainting or loss of consciousness Rapid heart rate Very slow heart rate When to seek medical advice Call your healthcare provider right away if any of these occur: Symptoms of withdrawal. These include agitation, anxiety, trembling, sweats, diarrhea, unable tosleep. Fever of 100.4F (38.0C) or higher, or as directed by your healthcare provider Too much drowsiness or you can't be awakened Redness, swelling, or tenderness at an injection site Last Reviewed Date: 01/11/202219991518-3684 [employer]. All rights reserved. This information is not intended as a substitute for professional medical care. Always follow your healthcare professional's instructions. * Pt Handout (on AVS) - Len Singer MD - 01/04/2024 2:00 AM EDT Images from the original note were not included. [id number] Bronchospasm (Adult) Bronchospasm occurs when the airways (bronchial tubes) start to spasm and contract. This makes it hard to breathe and causes wheezing (a high-pitched whistling sound). Bronchospasm can also cause frequent coughing without wheezing and feeling short of breath. Bronchospasm is due to irritation, inflammation, or allergic reaction of the airways. People with asthma get bronchospasm. However, not everyone with bronchospasm has asthma. Being exposed to harmful fumes, a recent case of bronchitis, exercise, or a flare-up of chronic obstructive pulmonary disease (COPD) may cause the airways to spasm. An episode of bronchospasm may last 7 to 14 days. Medicine may be prescribed to relax the airways and prevent wheezing. Antibiotics will be prescribed only if your healthcare provider thinks there is a bacterial infection. Antibioticsdon't help a viral infection. Home care Drink lots of water or other fluids (at least 10 glasses a day) during an attack. This will loosen lung secretions and make it easier to breathe. If you have heart or kidney disease, check with your doctor before you drink extra fluids. Take prescribed medicine exactly at the times advised. If you take an inhaled medicine to help with breathing, don't use it more than once every 4 hours, unless told to do so. If prescribed an antibiotic or prednisone, take all of the medicine as directed, even if you are feeling better after a few days. Don't smoke. Also avoid being exposed to secondhand smoke. If you were given a bronchodilator inhaler, use it exactly as directed. It's' important to always use the correct techniques when using bronchodilator inhalers. If you need to use it more often than prescribed, your condition may be getting worse. Contact your healthcare provider. Follow-up care Follow up with your healthcare provider, or as advised. If you're age 65 or older, have a chronic lung disease or condition that affects your immune system, or you smoke, ask your provider about the 2 available pneumococcal vaccines. Ask if 1 or both of the vaccines are best for you based on your health condition. Also talk with your provider about the importance of getting a yearly flu shot (influenza vaccine). When to get medical advice Call your healthcare provider right away if any of these occur: You need to use your inhalers more often than normal Fever of 100.4F (38C) or higher, or as advised by your provider Cough that brings up lots of dark-colored sputum (mucus) Feeling of doom Feeling dizzy or confused Lips or skin looking blue, purple, or mann Unable to talk You don't get better in 24 hours Call 911 Call 911 if any of these occur: Coughing up bloody sputum (mucus) Chest pain with each breath, or abnormal chest pain Increased wheezing or shortness of breath Last Reviewed Date: 10/11/202119994019-1282 [employer]. All rights reserved. This information is not intended as a substitute for professional medical care. Always follow your healthcare professional's instructions. * Pt Handout (on AVS) - Len Singer MD - 01/04/2024 2:00 AM EDT Images from the original note were not included. [id number] Uncertain Causes of Chest Pain Chest pain can happen for a number of reasons. Sometimes the cause can't be determined. If your condition does not seem serious, and your pain does not appear to be coming from your heart, your healthcare provider may recommend watching it closely. Sometimes the signs of a serious problem take moretime to appear. Many problems not related to your heart can cause chest pain. These include: Musculoskeletal. Costochondritis is an inflammation of the tissues around the ribs that can occur from trauma or overuse injuries, or a strain of the muscles of the chest wall. Respiratory. Pneumonia, collapsed lung (pneumothorax), or inflammation of the lining of the chest and lungs (pleurisy). Gastrointestinal. Esophageal reflux, heartburn, ulcers, or gallbladder disease. Anxiety and panic disorders Nerve compression and inflammation Rare problems such as aortic aneurysm or aortic dissection (a swelling of the large artery coming out of the heart or a tear in the wall of the artery), or pulmonary embolism (a blood clot in the lungs). Home care After your visit, follow these recommendations: Rest today and avoid strenuous activity. Take any prescribed medicine as directed. Be aware of any recurrent chest pain and notice any changes Follow-up care Follow up with your healthcare provider if you don't start to feel better within 24 hours, or as advised. Call 911 Call 911 if any of these occur: A change in the type of pain: if it feels different, becomes more severe, lasts longer, or begins to spread into your shoulder, arm, neck, jaw or back Shortness of breath or increased pain with breathing Weakness, dizziness, or fainting Rapid heartbeat Crushing sensation in your chest Coughing up more than a small amount of blood. When to seek medical advice Call your healthcare provider right away if any of the following occur: Cough with dark colored sputum (phlegm) or small amount of blood Fever of 100.4F (38C) or higher, or as directed by your healthcare provider Swelling, pain or redness in one leg Last Reviewed Date: 08/13/202119998040-3449 [employer]. All rights reserved. This information is not intended as a substitute for professional medical care. Always follow your healthcare professional's instructions. * ED Medicare Nurse Note - Cathy Cisneros RN - 01/03/2024 11:18 PM EDT Patient presents to the ED for evaluation of chest pain. Per patient he has been having chest pain all day today. Patient states that the pain was worse earlier in the day and now only feels like indigestion. Patient states that he has a history of heart issues and had a nodule on his heart that hefelt move today. Patient denies shortness of breath. Patient alert and oriented, restless in bed, states that he does not like hospitals and does not want to stay here long. Patient heart rate regular, respirations equal and unlabored. Denies other complaints of pain. Patient refusing blood work. States that he does not like hospitals and lab work "freaks me out". Dr. Singer aware that patient refusing labwork. documented in this encounter Plan of Treatment Scheduled Orders Name Type Priority Associated Diagnoses Orde r Schedule TROPONIN T, HIGH SENSITIVITY Lab STAT Perform Now for 1 Occurrences starting 01/03/2024 until 01/03/2024 CBC WITH WBC DIFFERENTIAL Lab STAT Perform Now for 1 Occurrences starting 01/03/2024 until 01/03/2024 COMPREHENSIVE METABOLIC PANEL Lab STAT Perform Now for 1 Occurrences starting 01/03/2024 until 01/03/2024 MAGNESIUM Lab STAT Perform Now fo r 1 Occurrences starting 01/03/2024 until 01/03/2024 PHOSPHORUS Lab STAT Perform Now fo r 1 Occurrences starting 01/03/2024 until 01/03/2024 ETHANOL, MEDICAL Lab STAT Perform Now for 1 Occurrences starting 01/03/2024 until 01/03/2024 CK Lab STAT Perform Now fo r 1 Occurrences starting 01/03/2024 until 01/03/2024 ACETAMINOPHEN LEVEL Lab STAT Perfo rm Now for 1 Occurrences starting 01/03/2024 until 01/03/2024 SALICYLATES LEVEL Lab STAT Perform Now for 1 Occurrences starting 01/03/2024 until 01/03/2024 CBC Lab STAT Once for 1 Occ urrences starting 01/03/2024 until 01/03/2024 DIFFERENTIAL, AUTOMATED Lab STAT O nce for 1 Occurrences starting 01/03/2024 until 01/03/2024 Scheduled Referrals Name Type Priority Associated Diagnoses Orde r Schedule ALCOHOL/CHEMICAL DEPENDENCY REFERRAL OP Referral Within 3 days (urgent) Tobacco use disorder Methamphetamine use disorder, severe (HCC) IVDU (intravenous drug user) Opioid use disorder Ordered: 01/04/2024 Health Maintenance Due Date Last Done Comments Pneumococcal Vaccine: Pediat rics (0 to 5 Years) and At-Risk Patients (6 to 64 Years) (1 of 2 - PCV) 2005 GARDASIL-HPV IMMUNIZATION SE TRACEY (2 - Male 2-dose series) 07/06/2011 01/03/2011 DTaP,Tdap,and Td Vaccines (7 - Td or Tdap) 01/03/2021 01/03/2011, 03/28/2005, 10/24/2000, Additional history exists COVID-19 Vaccine (2022-2 4 season) 2023 Influenza Vaccine (FLU shot) (Season Ended) 2024 06/10/2009 Hepatitis B Completed 01/19/2000, 08/13, 1999 MENINGOCOCCAL (MENACTRA/MENVEO) Completed , 01/03/2011 documented as of this encounter Medical Devices Not on filedocumented as of this encounter Procedures Procedure Name Priority Date/Time Associated Diagnosis Comments XR CHEST 1 VIEW STAT 01/03/2024 11:37 PM EDT documented in this encounter Results * XR CHEST 1 VIEW (01/03/2024 11:37 PM EDT) Anatomical Region Laterality Modality Chest Digital Radiogra phy 01/03/2024 11:2 7 PM EDT Impressions 01/04/2024 1:30 AM EDT IMPRESSION: No acute findings. THIS DOCUMENT HAS BEEN ELECTRONICALLY SIGNED BY BENJAMIN PEDROZA MD Narrative 01/04/2024 1:30 AM EDT PROCEDURE INFORMATION: Exam: XR Chest Exam date and time: 01/03/2024 11:27 PM Age: 23 years old Clinical indication: Other: Chest pain TECHNIQUE: Imaging protocol: Radiologic exam of the chest. Views: 1 view. COMPARISON: CT PULMONARY EMBOLUS W CONTRAST 10/07/2023 12:39 AM FINDINGS: Lungs: Unremarkable. No consolidation. Pleural spaces: Unremarkable. No pleural effusion. No pneumothorax. Heart/Mediastinum: Unremarkable. No cardiomegaly. Bones/joints: Unremarkable. Procedure Note Benjamin Pedroza MD - 01/04/2024 PROCEDURE INFORMATION: Exam: XR Chest Exam date and time: 01/03/2024 11:27 PM Age: 23 years old Clinical indication: Other: Chest pain TECHNIQUE: Imaging protocol: Radiologic exam of the chest. Views: 1 view. COMPARISON: CT PULMONARY EMBOLUS W CONTRAST 10/07/2023 12:39 AM FINDINGS: Lungs: Unremarkable. No consolidation. Pleural spaces: Unremarkable. No pleural effusion. No pneumothorax. Heart/Mediastinum: Unremarkable. No cardiomegaly. Bones/joints: Unremarkable. IMPRESSION IMPRESSION: No acute findings. THIS DOCUMENT HAS BEEN ELECTRONICALLY SIGNED BY BENJAMIN PEDROZA MD Len Singer MD RADIOLOGY ([facility]) documented in this encounter Visit Diagnoses Diagnosis Tobacco use disorder- Primary Chest pain Chest pain, unspecified Bronchospasm Acute bronchospasm Methamphetamine use disorder, severe (HCC) IVDU (intravenous drug user) Other, mixed, or unspecified nondependent drug abuse, unspecified Opioid use disorder documented in this encounter Administered Medications Inactive Administered Medications - up to 3 most recent administrations Medication Order MAR Action Action Date Dose Rate Site buprenorphine HCl (Subutex) sublingual tab 8 mg 8 mg, Sublingual, ONCE, On Sun01/04/24 at 0230, For 1 dose Given 01/04/2024 2:03 AM EDT 8 mg documented in this encounter Active and Recently Administered Medications Times are shown in EDT. Scheduled Medication Order 01/02/2024 01/03/2024 01/04/2024 buprenorphine HCl (Subutex) sublingual tab 8 mg (COMPLETED) 8 mg, Sublingual, ONCE, On Sun01/04/24 at 0230, For 1 dose 0203 (Given - Provid er: Cathy Cisneros RN) documented in this encounter Advance Directives [...] and were consensually agreed upon. Care Teams Humanities Instructor Relationship Specialty Start Date End Date Mulugeta Arnett MD [address] [address] PCP - General Family Medicine 07/16/23 documented as of this encounter
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
--- NOTE | 2024-06-18 15:27 | Electrocardiogram Report ---
Test Reason : Blood Pressure : */* mmHG Vent. Rate : 131 BPM Atrial Rate : 131 BPM P-R Int : 116 ms QRS Dur : 102 ms QT Int : 326 ms P-R-T Axes : 61 75 49 degrees QTcB Int : 481 ms Sinus tachycardia RSR' or QR pattern in V1 suggests right ventricular conduction delay Borderline ECG No previous ECGs available Confirmed by Fish Yadav ([id number]) on 06/18/2024 3:27:18 PM Referred By: NO PCP Confirmed By: Fish Yadav
--- NOTE | 2024-06-18 15:28 | Electrocardiogram Report ---
Test Reason : Blood Pressure : */* mmHG Vent. Rate : 129 BPM Atrial Rate : 129 BPM P-R Int : 116 ms QRS Dur : 92 ms QT Int : 312 ms P-R-T Axes : 67 78 38 degrees QTcB Int : 457 ms Sinus tachycardia Otherwise normal ECG When compared with ECG of 17-Jun-2024 17:41, (unconfirmed) No significant change was found Confirmed by Fish Yadav ([id number]) on 06/18/2024 3:27:52 PM Referred By: NO PCP Confirmed By: Fish Yadav
--- NOTE | 2024-06-18 15:29 | Electrocardiogram Report ---
Test Reason : Blood Pressure : */* mmHG Vent. Rate : 103 BPM Atrial Rate : 103 BPM P-R Int : 114 ms QRS Dur : 108 ms QT Int : 340 ms P-R-T Axes : 60 67 53 degrees QTcB Int : 445 ms Sinus tachycardia RSR' or QR pattern in V1 suggests right ventricular conduction delay Nonspecific ST abnormality Abnormal ECG When compared with ECG of 17-Jun-2024 17:57, (unconfirmed) ST elevation now present in Anterior leads Nonspecific T wave abnormality no longer evident in Inferior leads Confirmed by Fish Yadav ([id number]) on 06/18/2024 3:29:34 PM Referred By: RONALDO PCP Confirmed By: Fish Yadav
[2024-06-18] MEDS ORDERED: buprenorphine HCL 2 MG SUBL SL SCH (15:30)
--- NOTE | 2024-06-18 15:30 | Electrocardiogram Report ---
Test Reason : Blood Pressure : */* mmHG Vent. Rate : 117 BPM Atrial Rate : 117 BPM P-R Int : 118 ms QRS Dur : 108 ms QT Int : 348 ms P-R-T Axes : 65 75 60 degrees QTcB Int : 485 ms Sinus tachycardia RSR' or QR pattern in V1 suggests right ventricular conduction delay Nonspecific ST abnormality Abnormal ECG When compared with ECG of 17-Jun-2024 17:57, (unconfirmed) No significant change Confirmed by Fish Yadav ([id number]) on 06/18/2024 3:30:49 PM Referred By: NO PCP Confirmed By: Fish Yadav
[2024-06-18] MEDS: LORazepam 2 MG/1 ML VIAL IV PRN (15:36)
--- NOTE | 2024-06-18 15:38 | Electrocardiogram Report ---
Test Reason : Blood Pressure : */* mmHG Vent. Rate : 95 BPM Atrial Rate : 95 BPM P-R Int : 128 ms QRS Dur : 104 ms QT Int : 348 ms P-R-T Axes : 55 58 48 degrees QTcB Int : 437 ms Normal sinus rhythm Nonspecific ST abnormality Abnormal ECG When compared with ECG of 18-Jun-2024 00:01, (unconfirmed) Incomplete right bundle branch block is no longer Present Confirmed by Fish Yadav ([id number]) on 06/18/2024 3:37:53 PM Referred By: NO PCP Confirmed By: Fish Yadav
[2024-06-18] MEDS ORDERED: buprenorphine HCL 8 MG SUBL SL SCH (16:00)
[2024-06-18] MEDS: buprenorphine HCL 2 MG SUBL SL SCH (16:34)
[2024-06-18] MEDS: buprenorphine HCL 8 MG SUBL SL SCH (16:35)
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
[2024-06-23 15:22] LABS: Amphetamine Urine, Confirm >15000 ng/mL (<250); Cocaine, Urine 1500 ng/mL (<100); MDA negative; MDEA negative; MDMA (Ecstasy) Urine, Confirm negative; Methamphetamine, Ur Confirm >15000 ng/mL (<250)
== END 2024-06-19 15:50 | disposition home or self-care (01) | DRG 917 ==
LOC: ED 17:34 → 2S 06-18 01:07